=== PATIENT | male | born 1955 | race Caucasian/White ===

== ENCOUNTER 2017-11-25 10:06 | Emergency (ER) | payer OTHER ==
--- NOTE | 2017-11-25 10:51 | ERPHSYRPT ---
- History of Present Illness Time Seen by Provider: 11/25/17 10:38 Source: patient Exam Limitations: no limitations Patient Subjective Stated Complaint: Pt states "I have been down this road before. I am having chest pain. It has been going on for 2 days. It got really bad and started to go down my right arm yesterday." Triage Nursing Assessment: Pt alert and oriented X 3, skin pwd. PT ambulates with cane, able to speak in clear full sentences. PT slightly tachypneic. Allergies/Adverse Reactions: codeine Allergy (Severe, Verified 11/25/17 10:18) stop breathing hydrocodone Allergy (Severe, Verified 11/25/17 10:18) stop breathing morphine Allergy (Severe, Verified 11/25/17 10:18) stop breathing Home Medications: Albuterol Sulfate [Proair Hfa] 8.5 gm IH DAILY 11/25/17 [History] Amitriptyline HCl 75 mg PO BID 11/25/17 [History] Amlodipine Besylate 10 mg [Norvasc 10 MG] 10 mg PO DAILY 11/25/17 [History] Budesonide/Formoterol Fumarate [Symbicort 80-4.5 Mcg Inhaler] 10.2 gm IH BID [History] Carbamazepine 200 mg [Tegretol 200 MG] 200 mg PO DAILY 11/25/17 [History] Fenofibrate 48 mg PO DAILY 11/25/17 [History] Gabapentin [Neurontin] 300 mg PO DAILY 11/25/17 [History] Lisinopril/Hydrochlorothiazide [Lisinopril-Hctz 20-25 mg Tab] 1 each PO DAILY [History] Metoprolol Succinate 100 mg [Toprol Xl 100 MG] 100 mg PO DAILY 11/25/17 [ History] Mirtazapine [Remeron] 7.5 mg PO HS 11/25/17 [History] Mometasone Furoate [Nasonex] 17 gm NS DAILY 11/25/17 [History] Phenytoin Sod Extended 100 mg* [Dilantin 100 MG] 200 mg PO TID 11/25/17 [ History] Sertraline HCl [Zoloft] 100 mg PO DAILY 11/25/17 [History] Terazosin HCl 2 mg PO HS 11/25/17 [History] Hx Tetanus, Diphtheria Vaccination/Date Given: Yes Hx Influenza Vaccination/Date Given: No Hx Pneumococcal Vaccination/Date Given: No Immunizations Up to Date: Yes - Past Medical History Pertinent Past Medical History: Yes Neurological History: Seizures, Stroke ENT History: Other Cardiac History: Coronary Artery Disease, High Cholesterol, Myocardial Infarction ([place]) Respiratory History: COPD Endocrine Medical History: No Pertinent History Musculoskeletal History: Arthritis GI Medical History: No Pertinent History History: Other Psycho-Social History: Depression Male Reproductive Disorders: No Pertinent History 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 - Past Surgical History Past Surgical History: Yes Neuro Surgical History: No Pertinent History Cardiac: Cardiac Catheterization, Cardiac Stent Respiratory: No Pertinent History Gastrointestinal: No Pertinent History Genitourinary: Kidney Surgery, Other Musculoskeletal: No Pertinent History Male Surgical History: No Pertinent History - Social History Smoking Status: Former smoker Exposure to second hand smoke: No Drug Use: none Patient Lives Alone: No - Nursing Vital Signs Nursing Vital Signs: Initial Vital Signs Temperature 98.7 F 11/25/17 10:07 Pulse Rate 70 11/25/17 10:07 Respiratory Rate 18 11/25/17 10:07 Blood Pressure 154/106 11/25/17 10:07 O2 Sat by Pulse Oximetry 98 11/25/17 10:07 Pain Scale Pain Intensity 7 - Physical Exam SpO2: 98 Oxygen Delivery: Room Air
--- NOTE | 2017-11-25 10:56 | ERPHSYRPT ---
- History of Present Illness Time Seen by Provider: 11/25/17 10:38 Source: patient, family Exam Limitations: no limitations Patient Subjective Stated Complaint: Pt states "I have been down this road before. I am having chest pain. It has been going on for 2 days. It got really bad and started to go down my right arm yesterday." Triage Nursing Assessment: Pt alert and oriented X 3, skin pwd. PT ambulates with cane, able to speak in clear full sentences. PT slightly tachypneic. Physician History: The patient is a 62-year-old male with his complaining that his blood pressure was elevated "baljit high" last night and this morning. He takes many different blood pressure medicines and did not take any this morning because they wanted to be seen immediately. He hurt the right side of his upper back 2 days ago while playing with his granddaughter. His upper back is still hurting today. He believes it is a pulled muscle. He has chronic shortness of breath from COPD. He denies chest pain. He denies headache. His past medical history is significant for [place], cardiac stent, COPD, hypertension, high cholesterol, and BPH. Timing/Duration: yesterday, constant, gradual onset Severity: moderate Modifying Factors: Improves With: nothing Associated Symptoms: denies symptoms Allergies/Adverse Reactions: codeine Allergy (Severe, Verified 11/25/17 10:18) stop breathing hydrocodone Allergy (Severe, Verified 11/25/17 10:18) stop breathing morphine Allergy (Severe, Verified 11/25/17 10:18) stop breathing Home Medications: Albuterol Sulfate [Proair Hfa] 8.5 gm IH DAILY 11/25/17 [History] Amitriptyline HCl 75 mg PO BID 11/25/17 [History] Amlodipine Besylate 10 mg [Norvasc 10 MG] 10 mg PO DAILY 11/25/17 [History] Budesonide/Formoterol Fumarate [Symbicort 80-4.5 Mcg Inhaler] 10.2 gm IH BID [History] Carbamazepine 200 mg [Tegretol 200 MG] 200 mg PO DAILY 11/25/17 [History] Fenofibrate 48 mg PO DAILY 11/25/17 [History] Gabapentin [Neurontin] 300 mg PO DAILY 11/25/17 [History] Lisinopril/Hydrochlorothiazide [Lisinopril-Hctz 20-25 mg Tab] 1 each PO DAILY [History] Metoprolol Succinate 100 mg [Toprol Xl 100 MG] 100 mg PO DAILY 11/25/17 [ History] Mirtazapine [Remeron] 7.5 mg PO HS 11/25/17 [History] Mometasone Furoate [Nasonex] 17 gm NS DAILY 11/25/17 [History] Phenytoin Sod Extended 100 mg* [Dilantin 100 MG] 200 mg PO TID 11/25/17 [ History] Sertraline HCl [Zoloft] 100 mg PO DAILY 11/25/17 [History] Terazosin HCl 2 mg PO HS 11/25/17 [History] Hx Tetanus, Diphtheria Vaccination/Date Given: Yes Hx Influenza Vaccination/Date Given: No Hx Pneumococcal Vaccination/Date Given: No Immunizations Up to Date: Yes - Review of Systems Constitutional: No Fever, No Chills Eyes: No Symptoms Ears, Nose, & Throat: No Symptoms Respiratory: Dyspnea (chronic) Cardiac: No Chest Pain, No Edema, No Syncope Abdominal/Gastrointestinal: No Abdominal Pain, No Nausea, No Vomiting, No Diarrhea Genitourinary Symptoms: No Dysuria Musculoskeletal: Back Pain Skin: No Rash Neurological: No Dizziness, No Focal Weakness, No Sensory Changes Psychological: No Symptoms Endocrine: No Symptoms Hematologic/Lymphatic: No Symptoms Immunological/Allergic: No Symptoms All Other Systems: Reviewed and Negative - Past Medical History Pertinent Past Medical History: Yes Neurological History: Seizures, Stroke ENT History: Other Cardiac History: Coronary Artery Disease, High Cholesterol, Myocardial Infarction ([place]) Respiratory History: COPD Endocrine Medical History: No Pertinent History Musculoskeletal History: Arthritis GI Medical History: No Pertinent History History: Other Psycho-Social History: Depression Male Reproductive Disorders: No Pertinent History 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 - Past Surgical History Past Surgical History: Yes Neuro Surgical History: No Pertinent History Cardiac: Cardiac Catheterization, Cardiac Stent Respiratory: No Pertinent History Gastrointestinal: No Pertinent History Genitourinary: Kidney Surgery, Other Musculoskeletal: No Pertinent History Male Surgical History: No Pertinent History - Social History Smoking Status: Former smoker Exposure to second hand smoke: No Drug Use: none Patient Lives Alone: No - Nursing Vital Signs Nursing Vital Signs: Initial Vital Signs Temperature 98.7 F 11/25/17 10:07 Pulse Rate 70 11/25/17 10:07 Respiratory Rate 18 11/25/17 10:07 Blood Pressure 154/106 11/25/17 10:07 O2 Sat by Pulse Oximetry 98 11/25/17 10:07 Pain Scale Pain Intensity 4 - Physical Exam General Appearance: no apparent distress, alert Eye Exam: PERRL/EOMI, eyes nml inspection Ears, Nose, Throat Exam: normal ENT inspection, TMs normal, pharynx normal, moist mucous membranes Neck Exam: normal inspection, non-tender, supple, full range of motion Respiratory Exam: normal breath sounds, lungs clear, No respiratory distress Cardiovascular Exam: regular rate/rhythm, normal heart sounds, normal peripheral pulses Gastrointestinal/Abdomen Exam: soft, normal bowel sounds, No tenderness, No mass Rectal Exam: not done Back Exam: muscle spasm (right trapezius) Extremity Exam: normal inspection, normal range of motion, pelvis stable Neurologic Exam: alert, oriented x 3, cooperative, normal mood/affect, nml cerebellar function, nml station & gait, sensation nml, No motor deficits Skin Exam: normal color, warm, dry, No rash Lymphatic Exam: No adenopathy SpO2 Interpretation: normal SpO2: 98 Oxygen Delivery: Room Air - Course EKG Interpreted by Me: RATE, Sinus Rhythm, NORMAL AXIS, NORMAL INTERVALS, NORMAL QRS, NORMAL ST-T - Radiology Exams Chest X-ray Interpretation: Interpreted by me, Negative Ordered Tests: Active Orders 24 hr Category Date Time Status Clean Catch Urine Specimen STAT Care 11/25/17 10:57 Active EKG-ER Only STAT Care 11/25/17 10:57 Active IV Insertion STAT Care 11/25/17 10:57 Active CHEST 2 VIEWS (PA AND LAT) Stat Exams 11/25/17 10:57 Ordered CBC W DIFF Stat Lab 11/25/17 10:10 Completed CMP Stat Lab 11/25/17 10:10 Completed Lactic Acid Stat Lab 11/25/17 10:54 Completed Lactic Acid Stat Lab 11/25/17 10:57 Ordered TROPONIN Q3H Lab 11/25/17 10:10 Completed TROPONIN Q3H Lab 11/25/17 14:00 Ordered TROPONIN Q3H Lab 11/25/17 17:00 Ordered TROPONIN Q3H Lab 11/25/17 20:00 Ordered TROPONIN Q3H Lab 11/25/17 23:00 Ordered UA W/RFX UR CULTURE Stat Lab 11/25/17 10:10 Completed Medication Summary Generic Name Dose Route Start Last Admin Trade Name Carla PRN Reason Stop Dose Admin Lisinopril 20 mg/ 0 mg 11/26/17 10:00 11/25/17 11:16 Hydrochlorothiazide 25 mg PO 12/26/17 09:59 20 mg DAILY JAY Administration Discontinued Medications Generic Name Dose Route Start Last Admin Trade Name Carla PRN Reason Stop Dose Admin Amlodipine Besylate 10 mg 11/25/17 11:03 11/25/17 11:17 Norvasc 5 Mg PO 11/25/17 11:04 10 mg STAT ONE Administration Amlodipine Besylate Confirm 11/25/17 11:06 Norvasc 5 Mg Administered 11/25/17 11:07 Dose 10 mg .ROUTE .Musement ONE Lab/Rad Data: Laboratory Result Diagrams 11/25/17 10:10 11/25/17 10:10 Laboratory Results 11/25/17 11/25/17 11/25/17 Range/Units 10:54 10:10 10:10 WBC (4.0-10.5) K/mm3 RBC (4.1-5.6) M/mm3 Hgb (12.5-18.0) gm/dl Hct (42-50) % MCV (78-100) fl MCH (26-32) pg MCHC (32-36) g/dl RDW (11.5-14.0) % Plt Count (150-450) K/mm3 MPV (6-9.5) fl Gran % (36.0-66.0) % Eos # (Auto) (0-0.5) Absolute Lymphs (auto) (1.0-4.6) Absolute Monos (auto) (0.0-1.3) Lymphocytes % (24.0-44.0) % Monocytes % (0.0-12.0) % Eosinophils % (0.00-5.0) % Basophils % (0.0-0.4) % Absolute Granulocytes (1.4-6.9) Basophils # (0-0.4) Sodium (137-145) mmol/L Potassium (3.5-5.1) mmol/L Chloride (98-107) mmol/L Carbon Dioxide (22-30) mmol/L Anion Gap (5-15) MEQ/L BUN (9-20) mg/dL Creatinine (0.66-1.25) mg/dL Estimated GFR ML/MIN Glucose (74-106) mg/dL Lactic Acid 1.7 (0.4-2.0) Calcium (8.4-10.2) mg/dL Total Bilirubin (0.2-1.3) mg/dL AST (17-59) U/L ALT (0-50) U/L Alkaline Phosphatase (38-126) U/L Troponin I < 0.012 (0.000-0.034) ng/mL Serum Total Protein (6.3-8.2) g/dL Albumin (3.5-5.0) g/dL Ur Collection Type VOID Urine Color YELLOW (YELLOW) Urine Appearance CLEAR (CLEAR) Urine pH 7.0 (5-6) Ur Specific [place] 1.005 (1.005-1.025) Urine Protein NEGATIVE (Negative) Urine Ketones NEGATIVE (NEGATIVE) Urine Blood NEGATIVE (0-5) Vic[place]/ul Urine Nitrite NEGATIVE (NEGATIVE) Urine Bilirubin NEGATIVE (NEGATIVE) Urine Urobilinogen NORMAL (0-1) mg/dL Ur Leukocyte Esterase NEGATIVE (NEGATIVE) Urine Culture Reflexed NO (NO) Urine Glucose NEGATIVE (NEGATIVE) mg/dL Specimen Received 11/25/17 1100 11/25/17 11/25/17 Range/Units 10:10 10:10 WBC 6.9 (4.0-10.5) K/mm3 RBC 4.54 (4.1-5.6) M/mm3 Hgb 10.5 L (12.5-18.0) gm/dl Hct 33.2 L (42-50) % MCV 73.1 L (78-100) fl MCH 23.1 L (26-32) pg MCHC 31.6 L (32-36) g/dl RDW 17.1 H (11.5-14.0) % Plt Count 287 (150-450) K/mm3 MPV 10.8 H (6-9.5) fl Gran % 53.0 (36.0-66.0) % Eos # (Auto) 0 (0-0.5) Absolute Lymphs (auto) 2.81 (1.0-4.6) Absolute Monos (auto) 0.42 (0.0-1.3) Lymphocytes % 40.9 (24.0-44.0) % Monocytes % 6.1 (0.0-12.0) % Eosinophils % 0.0 (0.00-5.0) % Basophils % 0.0 (0.0-0.4) % Absolute Granulocytes 3.64 (1.4-6.9) Basophils # 0 (0-0.4) Sodium 140 (137-145) mmol/L Potassium 4.0 (3.5-5.1) mmol/L Chloride 108 H (98-107) mmol/L Carbon Dioxide 22 (22-30) mmol/L Anion Gap 14.4 (5-15) MEQ/L BUN 17 (9-20) mg/dL Creatinine 0.85 (0.66-1.25) mg/dL Estimated GFR > 60.0 ML/MIN Glucose 149 H (74-106) mg/dL Lactic Acid (0.4-2.0) Calcium 9.3 (8.4-10.2) mg/dL Total Bilirubin 0.40 (0.2-1.3) mg/dL AST 35 (17-59) U/L ALT 23 (0-50) U/L Alkaline Phosphatase 101 (38-126) U/L Troponin I (0.000-0.034) ng/mL Serum Total Protein 7.6 (6.3-8.2) g/dL Albumin 4.6 (3.5-5.0) g/dL Ur Collection Type Urine Color (YELLOW) Urine Appearance (CLEAR) Urine pH (5-6) Ur Specific [place] (1.005-1.025) Urine Protein (Negative) Urine Ketones (NEGATIVE) Urine Blood (0-5) Vic[place]/ul Urine Nitrite (NEGATIVE) Urine Bilirubin (NEGATIVE) Urine Urobilinogen (0-1) mg/dL Ur Leukocyte Esterase (NEGATIVE) Urine Culture Reflexed (NO) Urine Glucose (NEGATIVE) mg/dL Specimen Received - Progress Progress: unchanged Counseled pt/family regarding: lab results, diagnosis, need for follow-up, rad results - Departure Time of Disposition: 12:02 Departure Disposition: Home Clinical Impression: HTN (hypertension), Anemia, Blood glucose elevated, Right shoulder strain Condition: Stable Critical Care Time: No Referrals: DOCTOR,NO FAMILY [Primary Care Provider] - Additional Instructions: You have a right shoulder strain, mild anemia, elevated blood glucose level, and hypertension. You were given amlodipine 10 mg, lisinopril 20 mg, and HCTZ 25 mg in the ER. Avoid added salt to your foods and avoid processed food. Follow-up with Dr. Ibarra in [place] on Sunday.
[2017-11-25] MEDS ORDERED: NORVASC 5 MG PO ONE (11:03)
[2017-11-25] MEDS ORDERED: NORVASC 5 MG ONE (11:06)
[2017-11-25 11:07] LABS: Appearance CLEAR (CLEAR); Basophil (Absolute #) 0 (0-0.4); Bilirubin NEGATIVE (NEGATIVE); Blood NEGATIVE Ery/ul (0-5); Eosinophil (Absolute #) 0 (0-0.5); Glucose NEGATIVE (NEGATIVE); Granulocyte Absolute (ANC) 3.64 (1.4-6.9); Hematocrit 33.2 % (42-50); Hemoglobin 10.5 gm/dl (12.5-18.0); Ketones NEGATIVE (NEGATIVE); Leukocyte Esterase NEGATIVE (NEGATIVE); Lymphocyte (Absolute #) 2.81 (1.0-4.6); Lymphocytes % 40.9 % (24.0-44.0); Mean Cell Volume 73.1 fl (78-100); Mean Corpuscular Hemoglobin 23.1 pg (26-32); Mean Corpuscular Hgb Concent. 31.6 g/dl (32-36); Mean Platelet Volume 10.8 fl (6-9.5); Monocyte (Absolute #) 0.42 (0.0-1.3); Monocytes % 6.1 % (0.0-12.0); Nitrite NEGATIVE (NEGATIVE); Platelet Count 287 K/mm3 (150-450); Protein,Urine Dip NEGATIVE (Negative); Red Blood Count 4.54 M/mm3 (4.1-5.6); Red Cell Distribution Width 17.1 % (11.5-14.0); Specific Gravity 1.005 (1.005-1.025); Urobilinogen NORMAL mg/dL (0-1); White Blood Count 6.9 K/mm3 (4.0-10.5)
[2017-11-25 11:33] LABS: ALBUMIN 4.6 g/dL (3.5-5.0); ALKALINE PHOSPHATASE 101 U/L (38-126); ANION GAP 14.4 MEQ/L (5-15); BLOOD UREA NITROGEN 17 mg/dL (9-20); CHLORIDE 108 mmol/L (98-107); Calcium 9.3 mg/dL (8.4-10.2); Carbon Dioxide 22 mmol/L (22-30); Creatinine 1 0.85 mg/dL (0.66-1.25); Glucose 149 mg/dL (74-106); SGOT/AST 35 U/L (17-59); SGPT/ALT 23 U/L (0-50); SODIUM 140 mmol/L (137-145); Total Protein 7.6 g/dL (6.3-8.2)
[2017-11-25 12:21] VITALS: BP 162/110; PULSE 90; O2SAT 97
--- NOTE | 2017-11-25 20:28 | XRAY ---
Indication: Right chest discomfort. History COPD. Comparison: None PA/lateral chest hyperinflated and clear with a few incidental calcified granulomas. Heart is not enlarged. Bony thorax intact with mild degenerative changes.
[2017-11-26] MEDS ORDERED: Zestril 20 MG*** 20 MG, hydroDIURIL 25 MG*** 25 MG PO SCH ×2 (10:00)
== END 2017-11-25 12:21 | disposition home or self-care (01) ==
LOC: ED 10:06
DX: I10 Essential (primary) hypertension (principal); D64.9 Anemia, unspecified; R73.02 Impaired glucose tolerance (oral); S46.911A Strain of unspecified muscle, fascia and tendon at shoulder and upper arm level, right arm, initial encounter; Z79.899 Other long term (current) drug therapy; R06.00 Dyspnea, unspecified; M54.9 Dorsalgia, unspecified
CPT/HCPCS: 36000; 36415; 71046; 80053; 81002; 83605; 84484; 85025; 93005; 99284; A9270-GY

== ENCOUNTER 2019-03-14 09:24 | Emergency (ER) | payer OTHER ==
--- NOTE | 2019-03-14 09:35 | ERPHSYRPT ---
- History of Present Illness Time Seen by Provider: 03/14/19 09:35 Historian: patient, family Exam Limitations: no limitations Physician History: 63 y/o obese white male with htn and seizure disorder on dilantin presents with h/o multiple episodes of vomiting since yesterday. pt fell onto left knee. vomiting soon after this fall. pt denies abd injury, denies cp, denies soa and denies diarrhea. pt can take iv demerol for pain. pt does feel as though he has sinus congestion. Timing/Duration: yesterday Quality: aching Abdominal Pain Onset Location: generalized abdomen Pain Radiation: no radiation Severity of Pain-Max: moderate Severity of Pain-Current: moderate Modifying Factors: Improves With: vomiting Associated Symptoms: loss of appetite, nausea, vomiting Previous symptoms: no prior history Allergies/Adverse Reactions: codeine Allergy (Severe, Verified 03/14/19 09:45) stop breathing hydrocodone Allergy (Severe, Verified 03/14/19 09:45) stop breathing morphine Allergy (Severe, Verified 03/14/19 09:45) stop breathing Penicillins Allergy (Verified 03/14/19 09:46) Home Medications: Amitriptyline HCl 75 mg PO HS 11/25/17 [History] Amlodipine Besylate 10 mg [Norvasc 10 MG] 10 mg PO DAILY 11/25/17 [History] Carbamazepine 200 mg [Tegretol 200 MG] 200 mg PO BID 11/25/17 [History] Lisinopril/Hydrochlorothiazide [Lisinopril-Hctz 20-25 mg Tab] 2 each PO DAILY [History] Metoprolol Succinate 100 mg [Toprol Xl 100 MG] 100 mg PO DAILY 11/25/17 [ History] Mometasone Furoate [Nasonex] 17 gm NS DAILY 11/25/17 [History] Phenytoin Sod Extended 100 mg* [Dilantin 100 MG] 200 mg PO TID 11/25/17 [ History] Terazosin HCl 2 mg PO HS 11/25/17 [History] Atorvastatin Calcium [Lipitor] 20 mg PO DAILY 03/14/19 [History] Fenofibrate Nanocrystallized [Fenofibrate] 1 tab PO DAILY 03/14/19 [History] Gabapentin 300 mg PO TID 03/14/19 [History] Loratadine 10 mg [Claritin 10 mg] 10 mg PO DAILY 03/14/19 [History] Omeprazole 20 mg PO DAILY 03/14/19 [History] Phenylephrine HCl [Sudogest PE] 20 mg PO BID 03/14/19 [History] Hx Tetanus, Diphtheria Vaccination/Date Given: Yes Hx Influenza Vaccination/Date Given: No Hx Pneumococcal Vaccination/Date Given: No - Review of Systems Constitutional: No Symptoms Eyes: No Symptoms Ears, Nose, & Throat: No Symptoms Respiratory: No Symptoms Cardiac: No Symptoms Abdominal/Gastrointestinal: Abdominal Pain, Nausea, Vomiting Genitourinary Symptoms: No Symptoms Musculoskeletal: Injury, Joint Pain (left knee) Skin: No Symptoms Neurological: No Symptoms Psychological: No Symptoms Endocrine: No Symptoms Hematologic/Lymphatic: No Symptoms Immunological/Allergic: No Symptoms All Other Systems: Reviewed and Negative - Past Medical History Pertinent Past Medical History: Yes Neurological History: Seizures, Stroke ENT History: Other Cardiac History: Coronary Artery Disease, High Cholesterol, Myocardial Infarction ([place]) Respiratory History: COPD Endocrine Medical History: No Pertinent History Musculoskeletal History: Arthritis GI Medical History: No Pertinent History History: Other Psycho-Social History: Depression Male Reproductive Disorders: No Pertinent History 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 - Past Surgical History Past Surgical History: Yes Neuro Surgical History: No Pertinent History Cardiac: Cardiac Catheterization, Cardiac Stent Respiratory: No Pertinent History Gastrointestinal: No Pertinent History Genitourinary: Kidney Surgery, Other Musculoskeletal: No Pertinent History Male Surgical History: No Pertinent History - Social History Smoking Status: Former smoker Exposure to second hand smoke: No Drug Use: none Patient Lives Alone: No - Nursing Vital Signs Nursing Vital Signs: Initial Vital Signs Temperature 98.8 F 03/14/19 09:30 Pulse Rate 107 H 03/14/19 09:30 Blood Pressure 159/106 03/14/19 09:30 O2 Sat by Pulse Oximetry 96 03/14/19 09:30 Pain Scale Pain Intensity 8 - Physical Exam General Appearance: mild distress, alert, anxiety, obese Eye Exam: PERRL/EOMI, eyes nml inspection Ears, Nose, Throat Exam: normal ENT inspection, moist mucous membranes Neck Exam: normal inspection, non-tender, supple, full range of motion Respiratory Exam: normal breath sounds, lungs clear, airway intact, No chest tenderness, No respiratory distress Cardiovascular Exam: regular rate/rhythm, normal heart sounds, normal peripheral pulses Gastrointestinal/Abdomen Exam: soft, tenderness, distention, No guarding, No rebound Rectal Exam: not done Back Exam: normal inspection, normal range of motion, No CVA tenderness, No vertebral tenderness Extremity Exam: normal inspection, normal range of motion, pelvis stable, tenderness (left ant knee) Neurologic Exam: alert, oriented x 3, cooperative, recycle coordinator II-XII nml as tested Skin Exam: normal color, warm, dry Lymphatic Exam: No adenopathy SpO2 Interpretation: normal O2 Delivery: Room Air - Course Nursing assessment & vital signs reviewed: Yes Ordered Tests: Active Orders 24 hr Category Date Time Status IV Insertion STAT Care 03/14/19 09:44 Active ABDOMEN AND PELVIS W/0 CONTRAS [CT] Stat Exams 03/14/19 09:44 Completed KNEE (3 VIEWS) Stat Exams 03/14/19 09:46 Completed AMYLASE Stat Lab 03/14/19 09:35 Completed CBC W DIFF Stat Lab 03/14/19 09:35 Completed CMP Stat Lab 03/14/19 09:35 Completed LIPASE Stat Lab 03/14/19 09:35 Completed Lactic Acid Stat Lab 03/14/19 09:44 Results UA W/RFX UR CULTURE Stat Lab 03/14/19 09:44 Uncollected Medication Summary Generic Name Dose Route Start Last Admin Trade Name Freq PRN Reason Stop Dose Admin Sodium Chloride 1,000 mls @ 999 mls/hr 03/14/19 11:06 03/14/19 11:12 Sodium Chloride 0.9% 1000 Ml IV 03/14/19 12:06 999 mls/hr .Q1H1M STA Administration Discontinued Medications Generic Name Dose Route Start Last Admin Trade Name Freq PRN Reason Stop Dose Admin Famotidine 20 mg 03/14/19 09:44 03/14/19 09:59 Pepcid 20 Mg Vial IV 03/14/19 09:45 20 mg STAT ONE Administration Famotidine Confirm 03/14/19 09:57 Pepcid 20 Mg Vial Administered 03/14/19 09:58 Dose 20 mg IV .STK-MED ONE Sodium Chloride 1,000 mls @ 999 mls/hr 03/14/19 09:44 03/14/19 11:07 Sodium Chloride 0.9% 1000 Ml IV 03/14/19 10:44 Infused .Q1H1M STA Infusion Sodium Chloride Confirm 03/14/19 09:57 Sodium Chloride 0.9% 1000 Ml Administered 03/14/19 09:58 Dose 1,000 mls @ ud .ROUTE .STK-MED ONE Sodium Chloride Confirm 03/14/19 11:09 Sodium Chloride 0.9% 1000 Ml Administered 03/14/19 11:10 Dose 1,000 mls @ ud .ROUTE .STK-MED ONE Meperidine HCl 25 mg 03/14/19 09:45 03/14/19 09:59 Demerol 25mg Syringe IV 03/14/19 09:46 25 mg STAT ONE Administration Meperidine HCl Confirm 03/14/19 09:57 Demerol 25mg Syringe Administered 03/14/19 09:58 Dose 25 mg .ROUTE .STK-[facility] ONE Ondansetron HCl 4 mg 03/14/19 09:44 03/14/19 09:59 Zofran 4 Mg/2 Ml Vial IV 03/14/19 09:45 4 mg STAT ONE Administration Ondansetron HCl Confirm 03/14/19 09:56 Zofran 4 Mg/2 Ml Vial Administered 03/14/19 09:57 Dose 4 mg .ROUTE .[facility] ONE Lab/Rad Data: Laboratory Result Diagrams 03/14/19 09:35 03/14/19 09:35 Laboratory Results 03/14/19 03/14/19 03/14/19 Range/Units 10:00 09:44 09:35 WBC (4.0-10.5) K/mm3 RBC (4.1-5.6) M/mm3 Hgb (12.5-18.0) gm/dl Hct (42-50) % MCV (78-100) fl MCH (26-32) pg MCHC (32-36) g/dl RDW (11.5-14.0) % Plt Count (150-450) K/mm3 MPV (6-9.5) fl Gran % (36.0-66.0) % Eos # (Auto) (0-0.5) Absolute Lymphs (auto) (1.0-4.6) Absolute Monos (auto) (0.0-1.3) Lymphocytes % (24.0-44.0) % Monocytes % (0.0-12.0) % Eosinophils % (0.00-5.0) % Basophils % (0.0-0.4) % Absolute Granulocytes (1.4-6.9) Basophils # (0-0.4) Sodium (137-145) mmol/L Potassium (3.5-5.1) mmol/L Chloride (98-107) mmol/L Carbon Dioxide (22-30) mmol/L Anion Gap (5-15) MEQ/L BUN (9-20) mg/dL Creatinine (0.66-1.25) mg/dL Estimated GFR ML/MIN Glucose (74-106) mg/dL Lactic Acid 2.1 H (0.4-2.0) Calcium (8.4-10.2) mg/dL Total Bilirubin (0.2-1.3) mg/dL AST (17-59) U/L ALT (0-50) U/L Alkaline Phosphatase (38-126) U/L Serum Total Protein (6.3-8.2) g/dL Albumin (3.5-5.0) g/dL Amylase (30-110) U/L Lipase (23-300) U/L Phenytoin 23.0 H* (10-20) ug/mL Influenza Type A Ag NEGATIVE (NEGATIVE) Influenza Type B Ag NEGATIVE (NEGATIVE) RSV (PCR) NEGATIVE (Negative) Slides for Path Review 03/14/19 03/14/19 Range/Units 09:35 09:35 WBC 6.8 (4.0-10.5) K/mm3 RBC 5.22 (4.1-5.6) M/mm3 Hgb 11.0 L (12.5-18.0) gm/dl Hct 35.6 L (42-50) % MCV 68.2 L (78-100) fl MCH 21.0 L (26-32) pg MCHC 30.9 L (32-36) g/dl RDW 21.2 H (11.5-14.0) % Plt Count 410 (150-450) K/mm3 MPV 9.6 H (6-9.5) fl Gran % 51.5 (36.0-66.0) % Eos # (Auto) 0 (0-0.5) Absolute Lymphs (auto) 2.53 (1.0-4.6) Absolute Monos (auto) 0.78 (0.0-1.3) Lymphocytes % 37.0 (24.0-44.0) % Monocytes % 11.4 (0.0-12.0) % Eosinophils % 0.0 (0.00-5.0) % Basophils % 0.1 (0.0-0.4) % Absolute Granulocytes 3.51 (1.4-6.9) Basophils # 0.01 (0-0.4) Sodium 140 (137-145) mmol/L Potassium 4.1 (3.5-5.1) mmol/L Chloride 104 (98-107) mmol/L Carbon Dioxide 21 L (22-30) mmol/L Anion Gap 18.1 H (5-15) MEQ/L BUN 18 (9-20) mg/dL Creatinine 1.15 (0.66-1.25) mg/dL Estimated GFR > 60.0 ML/MIN Glucose 148 H (74-106) mg/dL Lactic Acid (0.4-2.0) Calcium 9.8 (8.4-10.2) mg/dL Total Bilirubin 0.50 (0.2-1.3) mg/dL AST 38 (17-59) U/L ALT 21 (0-50) U/L Alkaline Phosphatase 89 (38-126) U/L Serum Total Protein 8.7 H (6.3-8.2) g/dL Albumin 4.8 (3.5-5.0) g/dL Amylase 125 H (30-110) U/L Lipase 196 (23-300) U/L Phenytoin (10-20) ug/mL Influenza Type A Ag (NEGATIVE) Influenza Type B Ag (NEGATIVE) RSV (PCR) (Negative) Slides for Path Review - Progress Progress: improved Progress Note: 03/14/19 11:05 xray left knee-mild nonspecific effusion. ct abd/pelvis-no acute process Counseled pt/family regarding: lab results, diagnosis, need for follow-up, rad results - Departure Departure Disposition: Home Clinical Impression: Vomiting, Dilantin toxicity Condition: Stable Critical Care Time: No Referrals: ULISES GEORGES MD [Primary Care Provider] - Additional Instructions: drink plenty of fluids. hold dilantin until mid day tomorrow 03/15/19, then resume. follow up with your primary prescriber on Sunday03/17/19 for further instructions. Prescriptions: Ondansetron HCl [Zofran] 4 mg PO TID PRN #10 tablet PRN Reason: Nausea/Vomiting
[2019-03-14] MEDS ORDERED: Sodium Chloride 0.9% 1000 ML 1,000 ML IV STA ×2 (09:44→11:06)
[2019-03-14] MEDS ORDERED: Zofran 4 MG/2 ML VIAL IV ONE (09:44)
[2019-03-14] MEDS ORDERED: Pepcid 20 MG VIAL IV ONE ×2 (09:44→09:57)
[2019-03-14] MEDS ORDERED: DEMEROL 25MG SYRINGE IV ONE (09:45)
[2019-03-14] MEDS ORDERED: Zofran 4 MG/2 ML VIAL ONE (09:56)
[2019-03-14] MEDS ORDERED: DEMEROL 25MG SYRINGE ONE (09:57)
[2019-03-14] MEDS ORDERED: Sodium Chloride 0.9% 1000 ML 1,000 ML ONE ×2 (09:57→11:09)
[2019-03-14 10:05] LABS: Lactic Acid 2.1 (0.4-2.0)
[2019-03-14 10:05] LABS: Absolute Neutrophil Ct (ANC) 3.51 (1.4-6.9); BASOPHIL % 0.1 % (0.0-0.4); Basophil (Absolute #) 0.01 (0-0.4); Eosinophil (Absolute #) 0 (0-0.5); Hematocrit 35.6 % (42-50); Lymphocyte (Absolute #) 2.53 (1.0-4.6); Mean Cell Volume 68.2 fl (78-100); Mean Corpuscular Hgb Concent. 30.9 g/dl (32-36); Mean Platelet Volume 9.6 fl (6-9.5); Monocyte (Absolute #) 0.78 (0.0-1.3); Monocytes % 11.4 % (0.0-12.0); Neutrophil % 51.5 % (36.0-66.0); Platelet Count 410 K/mm3 (150-450); Red Blood Count 5.22 M/mm3 (4.1-5.6); Red Cell Distribution Width 21.2 % (11.5-14.0); White Blood Count 6.8 K/mm3 (4.0-10.5)
[2019-03-14 10:16] LABS: ALBUMIN 4.8 g/dL (3.5-5.0); ALKALINE PHOSPHATASE 89 U/L (38-126); AMYLASE 125 U/L (30-110); ANION GAP 18.1 MEQ/L (5-15); BLOOD UREA NITROGEN 18 mg/dL (9-20); CHLORIDE 104 mmol/L (98-107); Calcium 9.8 mg/dL (8.4-10.2); Carbon Dioxide 21 mmol/L (22-30); Creatinine 1 1.15 mg/dL (0.66-1.25); Glucose 148 mg/dL (74-106); LIPASE 196 U/L (23-300); Potassium 4.1 mmol/L (3.5-5.1); SGOT/AST 38 U/L (17-59); SGPT/ALT 21 U/L (0-50); SODIUM 140 mmol/L (137-145); Total Protein 8.7 g/dL (6.3-8.2)
--- NOTE | 2019-03-14 10:41 | XRAY ---
Indication: Abdomen distention. Vomiting and diarrhea. Multiple contiguous axial images obtained through the abdomen and pelvis without contrast as ordered. Comparison: None Lung bases demonstrates mild bilateral dependent atelectasis and minimal bibasilar fibrosis/scarring. No infiltrate or effusion. Heart is not enlarged. Noncontrasted stomach and bowel loops appear nonobstructed. Appendix not seen. There has been left total nephrectomy. No free fluid/air. Remaining liver, gallbladder, pancreas, spleen, adrenal glands, right kidney, right ureter, bladder, and aorta appear unremarkable for noncontrast exam. Osseous structures intact with mild/moderate degenerative changes throughout the thoracolumbar spine. Impression: 1. Left total nephrectomy. 2. Remaining CT abdomen/pelvis without contrast exam is negative. CTDI 21.97
[2019-03-14 10:56] LABS: INFLUENZA A NEGATIVE (NEGATIVE); INFLUENZA B NEGATIVE (NEGATIVE); RESPIRATORY SYNCTIAL VIRUS NEGATIVE (Negative)
--- NOTE | 2019-03-14 10:58 | XRAY ---
Indication: Chronic pain. Comparison: None 3 views of the right knee demonstrates mild/moderate tricompartmental degenerative changes greatest patellofemoral compartment with small nonspecific effusion. No other bony, articular, or soft tissue abnormalities.
[2019-03-14 12:14] VITALS: BP 136/98; PULSE 98; O2SAT 98
[2019-03-14 12:23] LABS: Appearance CLEAR (CLEAR); Bilirubin NEGATIVE (NEGATIVE); Blood NEGATIVE Ery/ul (0-5); Epithelial Cells RARE /HPF (FEW); Glucose NEGATIVE (NEGATIVE); Ketones NEGATIVE (NEGATIVE); Leukocyte Esterase NEGATIVE (NEGATIVE); Mucus SLIGHT /HPF (NEGATIVE); Nitrite NEGATIVE (NEGATIVE); Protein,Urine Dip NEGATIVE (Negative); Specific Gravity 1.027 (1.005-1.025); Urobilinogen NEGATIVE mg/dL (0-1)
[2019-03-14] MEDS ORDERED: ZOFRAN ODT 4 MG ONE (12:30)
[2019-03-14] MEDS: ZOFRAN ODT 4 MG PO PRN ×2 (12:34→12:38)
== END 2019-03-14 12:44 | disposition home or self-care (01) ==
LOC: ED 09:24
DX: R11.10 Vomiting, unspecified (principal); T42.0X5A Adverse effect of hydantoin derivatives, initial encounter; Y92.9 Unspecified place or not applicable; I10 Essential (primary) hypertension; G40.909 Epilepsy, unspecified, not intractable, without status epilepticus; Z79.899 Other long term (current) drug therapy
CPT/HCPCS: 36000; 36415; 73562; 74176; 80053; 80185; 81001; 82150; 83605; 83690; 85025; 87631; 96360; 96361; 96374; 96375; 99284; J2175; J2405; Q0162

== ENCOUNTER 2020-04-25 14:32 | Emergency (ER) | payer OTHER ==
[2020-04-25 15:03] VITALS: O2SAT 98
[2020-04-25] MEDS ORDERED: PERCOCET TABLET 5/325MG PO ONE (15:05)
--- NOTE | 2020-04-25 15:11 | ERPHSYRPT ---
- History of Present Illness Time Seen by Provider: 04/25/20 14:51 Source: patient Exam Limitations: no limitations Patient Subjective Stated Complaint: pt reports chronic left knee pain, states a few days ago he fell, causing further pain. pt reports he needs a knee repla cement because his joint is "[id number]". pt is short of breath which he states is per his norm. reports he has emphysema. Triage Nursing Assessment: pt is aox3, pupils perrl, afebrile, pt is short of breath upon exam, cap refill < 3 seconds, radial pulses strong and equal, slight swelling noted to the left knee, no deformity or obvious injury noted. pt skin pink warm dry. Physician History: 64 years old male with multiple medical problems including emphysema with chronic respiratory issues presented in the ER with chief complaint of left knee pain after he accidentally encountered a fall at home 4 days ago. Since then he is complaining of swelling and sharp nature moderate intensity pain which is aggravated with weightbearing and movements and partial relief with being still/taking Tylenol. Pain is more on the medial side of the knee. Patient has osteoarthritis and chronic left knee pain at his baseline and this fall has flared up. No injury anywhere else. Shortness of breath at his baseline and patient states "I actually feeling better now". Method of Injury: fell Occurred: days ago (4) Quality: constant, sharpness Severity of Pain-Max: moderate Severity of Pain-Current: moderate Lower Extremities Pain: knee: left Modifying Factors: Improves With: immobilization, rest. Worsens With: movement Allergies/Adverse Reactions: codeine Allergy (Severe, Verified 04/25/20 15:02) stop breathing hydrocodone Allergy (Severe, Verified 04/25/20 15:02) stop breathing morphine Allergy (Severe, Verified 04/25/20 15:02) stop breathing Penicillins Allergy (Verified 04/25/20 15:02) Home Medications: Amitriptyline HCl 75 mg PO HS 11/25/17 [History] Amlodipine Besylate 10 mg [Norvasc 10 MG] 10 mg PO DAILY 11/25/17 [History] Carbamazepine 200 mg [Tegretol 200 MG] 200 mg PO BID 11/25/17 [History] Lisinopril/Hydrochlorothiazide [Lisinopril-Hctz 20-25 mg Tab] 2 each PO DAILY 11/25/17 [History] Metoprolol Succinate 100 mg [Toprol Xl 100 MG] 100 mg PO DAILY 11/25/17 [History] Mometasone Furoate [Nasonex] 17 gm NS DAILY 11/25/17 [History] Phenytoin Sod Extended 100 mg* [Dilantin 100 MG] 200 mg PO TID 11/25/17 [History] Terazosin HCl 2 mg PO HS 11/25/17 [History] Atorvastatin Calcium [Lipitor] 20 mg PO DAILY 03/14/19 [History] Fenofibrate Nanocrystallized [Fenofibrate] 1 tab PO DAILY 03/14/19 [History] Gabapentin 300 mg PO TID 03/14/19 [History] Loratadine 10 mg [Claritin 10 mg] 10 mg PO DAILY 03/14/19 [History] Omeprazole 20 mg PO DAILY 03/14/19 [History] Phenylephrine HCl [Sudogest PE] 20 mg PO BID 03/14/19 [History] Hx Tetanus, Diphtheria Vaccination/Date Given: Yes Hx Influenza Vaccination/Date Given: Yes Hx Pneumococcal Vaccination/Date Given: Yes Immunizations Up to Date: Yes Travel Risk - International Travel Have you traveled outside of the country in past 3 weeks: No - Coronavirus Screening Are you exhibiting any of the following symptoms?: No Close contact with a COVID-19 positive Pt in past 14-21 Days: No - Review of Systems Constitutional: No Symptoms Eyes: No Symptoms Ears, Nose, & Throat: No Symptoms Respiratory: Dyspnea Cardiac: No Symptoms Abdominal/Gastrointestinal: No Symptoms Genitourinary Symptoms: No Symptoms Musculoskeletal: Arthralgias, Fall, Injury, Joint Pain, Joint Swelling Skin: No Symptoms Psychological: No Symptoms Hematologic/Lymphatic: No Symptoms - Past Medical History Pertinent Past Medical History: Yes Neurological History: Seizures, Stroke ENT History: Other Cardiac History: Coronary Artery Disease, High Cholesterol, Myocardial Infarction ([place]) Respiratory History: COPD Endocrine Medical History: No Pertinent History Musculoskeletal History: Arthritis GI Medical History: No Pertinent History History: Other Psycho-Social History: Depression Male Reproductive Disorders: No Pertinent History 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 - Past Surgical History Past Surgical History: Yes Neuro Surgical History: No Pertinent History Cardiac: Cardiac Catheterization, Cardiac Stent Respiratory: No Pertinent History Gastrointestinal: No Pertinent History Genitourinary: Kidney Surgery, Other Musculoskeletal: No Pertinent History Male Surgical History: No Pertinent History Other Surgical History: right knee surgery - Social History Smoking Status: Former smoker Exposure to second hand smoke: No Drug Use: none Patient Lives Alone: No - Nursing Vital Signs Nursing Vital Signs: Initial Vital Signs Temperature 98.9 F 04/25/20 14:39 Pulse Rate 108 H 04/25/20 14:39 Respiratory Rate 28 H 04/25/20 14:39 Blood Pressure 137/98 04/25/20 14:39 O2 Sat by Pulse Oximetry 98 04/25/20 14:39 Pain Scale Pain Intensity 7 - Physical Exam General Appearance: no apparent distress, alert Eyes, Ears, Nose, Throat Exam: pharynx normal Neck Exam: normal inspection, supple, full range of motion Cardiovascular/Respiratory Exam: regular rate/rhythm, wheezing Knees Exam: right knee: non-tender, normal inspection, normal range of motion, no evidence of injury, left knee: bone tenderness, joint effusion, pain, soft tissue tenderness, swelling Ankle Exam: bilateral ankle: non-tender, normal inspection, normal range of motion Neuro/Tendon Exam: normal sensation, normal motor functions Mental Status Exam: alert, oriented x 3, cooperative Skin Exam: normal color SpO2 Interpretation: normal SpO2: 98 O2 Delivery: Room Air Ordered Tests: Active Orders 24 hr Category Date Time Status KNEE (3 VIEWS) Stat Exams 04/25/20 15:53 Taken Medication Summary Discontinued Medications Generic Name Dose Route Start Last Admin Trade Name Nickq PRN Reason Stop Dose Admin Oxycodone/Acetaminophen 1 tab 04/25/20 15:05 04/25/20 15:23 Percocet Tablet 5/325mg PO 04/25/20 15:06 1 tab STAT ONE Administration Oxycodone/Acetaminophen Confirm 04/25/20 15:21 Percocet Tablet 5/325mg Administered 04/25/20 15:22 Dose 1 tab .ROUTE .STK-MED ONE - Progress Progress: improved, pain not gone completely Progress Note: 04/25/20 16:01 Is given symptomatic treatment for pain, on reevaluation feeling better. X-rays did not show any obvious fracture dislocation reviewed by me. Official report is pending. Patient has severe orthostatic changes with some infusion. Placed in a knee brace, recommended using cane/walker all the time for ambulation and pain medication along with outpatient orthopedic surgery follow-up for possible knee replacement. Discussed signs symptoms of worsening needing return to ER which patient seems understanding. Counseled pt/family regarding: diagnosis, need for follow-up, rad results - Departure Departure Disposition: Home Clinical Impression: Acute pain of left knee Condition: Stable Critical Care Time: No Referrals: ULISES GEORGES MD [Primary Care Provider] - Follow Up with PCP/3 days MARK SHAVER MD [NON-STAFF PHY W/O PRIVILEGES] - Follow Up with PCP/3 days Instructions: Knee Pain (DC) Additional Instructions: Avoid exertional activities. Use walker/cane all the time for ambulation. Apply ice. Take pain medications as needed. Follow-up with orthopedic surgery for reevaluation. Return to ER for any worsening pain swelling, difficulty ambulation etc. Prescriptions: Oxycodone HCl/Acetaminophen [Percocet 5-325 mg Tablet] 1 each PO Q6H PRN PRN 3 Days #12 tablet MDD 4 PRN Reason: Pain
[2020-04-25] MEDS ORDERED: PERCOCET TABLET 5/325MG ONE (15:21)
[2020-04-25 16:25] VITALS: BP 130/97; PULSE 100
--- NOTE | 2020-04-26 10:01 | XRAY ---
Exam: 3 views of the left knee from 04/25/2020. Comparison: 3 views of the left knee from 03/14/2019. Indication: 64-year-old male fell, pain within left knee. Findings: AP, oblique, and lateral radiographs of the left knee were obtained. I see no acute fracture or dislocation. There appears to be a moderate suprapatellar joint effusion which is greater than that seen on 03/14/2019. I also note moderate to marked narrowing of the patellofemoral joint with moderate anterior/posterior and superior/inferior marginal patellar spurring indicating osteoarthritis. I also note some mild spurring at both the anterior and posterior margins of the supracondylar region of the distal left femur. The medial compartment of the left knee joint is not well seen in profile, but I suspect that it is significantly narrowed with some marginal osteophyte formation medially. There is also hypertrophic change of the tibial eminences. Mild to moderate narrowing of the lateral compartment of the left knee joint space is seen. Impression: 1. No acute left knee fracture or dislocation is seen. 2. Tricompartmental osteoarthritis of the left knee, affecting the patellofemoral joint and medial compartment of the left knee joint to the greatest extent. This appears to have progressed some as compared to 03/14/2019. 3. Moderate suprapatellar left knee joint effusion is seen on the lateral radiograph. This is greater than that seen on 03/14/2019.
== END 2020-04-25 16:27 | disposition home or self-care (01) ==
LOC: ED 14:32
DX: M25.562 Pain in left knee (principal); W19.XXXA Unspecified fall, initial encounter; M19.90 Unspecified osteoarthritis, unspecified site
CPT/HCPCS: 73562; 99283; A9270-GY

== ENCOUNTER 2020-10-27 12:45 | Emergency (ER) | payer OTHER ==
--- NOTE | 2020-10-27 12:49 | ERPHSYRPT ---
- History of Present Illness Time Seen by Provider: 10/27/20 12:48 Source: patient Exam Limitations: no limitations Physician History: This is a right-handed, morbidly obese 65-year-old white male who presents with left wrist pain after sustaining a fall early this morning approximately between 1:00 and 2:00 in the morning. Patient was sleeping in recliner and someone had put a blanket over him. He got up suddenly and tripped over the blanket falling on his outstretched left hand. Patient has no other complaints. He did not hit his head. He has no other complaints of pain. Patient does have a seizure disorder but he denies having a seizure. Occurred: this morning Reason for Fall: tripped (Tripped over a blanket), fell from standing pos Injuries/Pain Location: upper extremity (Left wrist) Loss of Consciousness: no loss of consciousness Quality: aching Severity of Pain-Max: moderate Severity of Pain-Current: moderate Modifying Factors: Improves With: movement Associated Symptoms (Fall): extremity injury (Left wrist), shortness of breath (Chronic. He does not want or feel he needs any intervention. He has chronic COPD) Allergies/Adverse Reactions: codeine Allergy (Severe, Verified 10/27/20 13:04) stop breathing hydrocodone Allergy (Severe, Verified 10/27/20 13:04) stop breathing morphine Allergy (Severe, Verified 10/27/20 13:04) stop breathing Penicillins Allergy (Verified 10/27/20 13:04) Home Medications: Amitriptyline HCl 75 mg PO HS 11/25/17 [History] Amlodipine Besylate 10 mg [Norvasc 10 MG] 10 mg PO DAILY 11/25/17 [History] Carbamazepine 200 mg [Tegretol 200 MG] 200 mg PO BID 11/25/17 [History] Lisinopril/Hydrochlorothiazide [Lisinopril-Hctz 20-25 mg Tab] 2 each PO DAILY 11/25/17 [History] Metoprolol Succinate 100 mg [Toprol Xl 100 MG] 100 mg PO DAILY 11/25/17 [History] Mometasone Furoate [Nasonex] 17 gm NS DAILY 11/25/17 [History] Phenytoin Sod Extended 100 mg* [Dilantin 100 MG] 200 mg PO TID 11/25/17 [History] Terazosin HCl 2 mg PO HS 11/25/17 [History] Atorvastatin Calcium [Lipitor] 20 mg PO DAILY 03/14/19 [History] Fenofibrate Nanocrystallized [Fenofibrate] 1 tab PO DAILY 03/14/19 [History] Gabapentin 300 mg PO TID 03/14/19 [History] Loratadine 10 mg [Claritin 10 mg] 10 mg PO DAILY 03/14/19 [History] Omeprazole 20 mg PO DAILY 03/14/19 [History] Phenylephrine HCl [Sudogest PE] 20 mg PO BID 03/14/19 [History] Hx Tetanus, Diphtheria Vaccination/Date Given: Yes Hx Influenza Vaccination/Date Given: Yes Hx Pneumococcal Vaccination/Date Given: Yes Travel Risk - International Travel Have you traveled outside of the country in past 3 weeks: No - Coronavirus Screening Are you exhibiting any of the following symptoms?: No Close contact with a COVID-19 positive Pt in past 14-21 Days: No - Review of Systems Constitutional: No Symptoms Eyes: No Symptoms Ears, Nose, & Throat: No Symptoms Respiratory: No Symptoms Cardiac: No Symptoms Abdominal/Gastrointestinal: No Symptoms Genitourinary Symptoms: No Symptoms Musculoskeletal: Fall, Injury (Left wrist) Skin: No Symptoms Neurological: No Symptoms Psychological: No Symptoms Endocrine: No Symptoms Hematologic/Lymphatic: No Symptoms Immunological/Allergic: No Symptoms All Other Systems: Reviewed and Negative - Past Medical History Pertinent Past Medical History: Yes Neurological History: Seizures, Stroke ENT History: Other Cardiac History: Coronary Artery Disease, High Cholesterol, Myocardial Infarction ([place]) Respiratory History: COPD Endocrine Medical History: No Pertinent History Musculoskeletal History: Arthritis GI Medical History: No Pertinent History History: Other Psycho-Social History: Depression Male Reproductive Disorders: No Pertinent History 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 - Past Surgical History Past Surgical History: Yes Neuro Surgical History: No Pertinent History Cardiac: Cardiac Catheterization, Cardiac Stent Respiratory: No Pertinent History Gastrointestinal: No Pertinent History Genitourinary: Kidney Surgery, Other Musculoskeletal: No Pertinent History Male Surgical History: No Pertinent History Other Surgical History: right knee surgery - Social History Smoking Status: Former smoker Exposure to second hand smoke: No Drug Use: none Patient Lives Alone: No - Nursing Vital Signs Nursing Vital Signs: Initial Vital Signs Temperature 97.8 F 10/27/20 12:58 Pulse Rate 93 H 10/27/20 12:58 Respiratory Rate 22 10/27/20 12:58 Blood Pressure 112/69 10/27/20 12:58 O2 Sat by Pulse Oximetry 97 10/27/20 12:58 Pain Scale Pain Intensity 8 - [place] Coma Score Best Eye Response ([place]): (4) open spontaneously Best Verbal Response ([place]): (5) oriented Best Motor Response ([place]): (6) obeys commands [place] Total: 15 - Physical Exam General Appearance: no apparent distress, alert, anxiety, obese Head Injury: no evidence of injury Eye Exam: PERRL/EOMI, eyes nml inspection ENT Exam: airway nml, nml ext.inspection Neck Exam: supple, trachea midline, full range of motion, normal alignment, normal inspection Respiratory/Chest Exam: No chest tenderness, No respiratory distress Gastrointestinal Exam: No tenderness Rectal Exam: not done Back Exam: normal inspection, normal range of motion, No CVA tenderness, No vertebral tenderness Extremity Exam: pelvis stable, limited range of motion (Left wrist with movement and palpation), pain with movement, tenderness (With movement and palpation lef t wrist), No deformities Neurologic Exam: alert, oriented x 3, cooperative, 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 There are degenerative changes noted. Counseled pt/family regarding: diagnosis, need for follow-up, rad results - Departure Departure Disposition: Home Clinical Impression: Left wrist sprain Condition: Stable Critical Care Time: No Referrals: ULISES GEORGES MD [Primary Care Provider] - Additional Instructions: Ice pack to area three times a day for the next 48 hours. If not allergic, use Tylenol ibuprofen for pain control. Follow-up in [facility] Sunday through Sunday 8 AM to 10 AM for further evaluation if you have persistent pain beyond 2 to 3 days. Wear the Velcro wrist splint for comfort.
[2020-10-27 13:03] VITALS: BP 112/69; PULSE 93; O2SAT 97
--- NOTE | 2020-10-27 13:58 | XRAY ---
Indication: Pain following fall. Comparison: None 3 view left wrist demonstrates moderate/advanced 1st metacarpal multangular scaphoid degenerative changes with heterotopic ossifications and radiocarpal degenerative joint space loss with subcortical cysts. No other bony, articular, or soft tissue abnormalities.
== END 2020-10-27 14:34 | disposition home or self-care (01) ==
LOC: ED 12:45
DX: S63.502A Unspecified sprain of left wrist, initial encounter (principal); W01.198A Fall on same level from slipping, tripping and stumbling with subsequent striking against other object, initial encounter; Y93.89 Activity, other specified; Y92.89 Other specified places as the place of occurrence of the external cause; M25.532 Pain in left wrist; J44.9 Chronic obstructive pulmonary disease, unspecified; I25.10 Atherosclerotic heart disease of native coronary artery without angina pectoris; I25.2 Old myocardial infarction
CPT/HCPCS: 73110; 99283; L3908

== ENCOUNTER 2021-08-22 06:35 | Inpatient (IN) | payer OTHER ==
[2021-08-22] MEDS ORDERED: DUONEB 0.5-3 MG/3 ml Neb IH ONE ×2 (06:45→10:05)
[2021-08-22] MEDS ORDERED: Quelicin Fliptop 200 MG/10 ML IV STA (06:50)
[2021-08-22] MEDS: Propofol 1000 mg/100 ml Bottle 100 ML IV PRN ×4 (06:54→21:51)
[2021-08-22] MEDS ORDERED: LEVOFLOXACIN 750MG/150ML D5W 750 MG/150 ML BAG IV STA (06:57)
[2021-08-22] MEDS ORDERED: AZACTAM 1 GM*** 2 GM in Sodium Chloride 0.9% 100 ML BAG 100 ML IV ONE (06:58)
[2021-08-22] MEDS ORDERED: DIPRIVAN 200 MG/20 ML IV STA (07:00)
[2021-08-22] MEDS ORDERED: Amidate 20 MG/10 ML IV STA (07:00)
--- NOTE | 2021-08-22 07:01 | ERPHSYRPT ---
<JANNET MASSEY - Last Filed: 08/22/21 08:51> - History of Present Illness Source: patient, EMS Exam Limitations: clinical condition Timing/Duration: day(s) (3), constant, gradual onset, worse Activities at Onset: activity, rest Severity of Dyspnea-Max: severe Severity of Dyspnea-Current: severe Possible Cause: unknown cause Modifying Factors: Worsens With: coughing, deep breath, exertion Associated Symptoms: cough, heaviness, productive cough, tightness Hx Tetanus, Diphtheria Vaccination/Date Given: Yes Hx Influenza Vaccination/Date Given: Yes Hx Pneumococcal Vaccination/Date Given: Yes <CISCO PRO - Last Filed: 08/23/21 07:44> - History of Present Illness Time Seen by Provider: 08/22/21 06:54 Physician History: 65 years old male with history of hypertension, hyperlipidemia, coronary artery disease status post stenting presented in the ER with chief complaint of worsening shortness of breath for the last 3 days initially with activity and now resting. He is not able to tolerate his CPAP. On EMS arrival oxygen saturation was in the 80s, placed on nonrebreather which he did not tolerate, was given Solu-Medrol and on presentation in the ER patient is in moderate to severe distress with accessory muscles use and unable to complete a sentence. Patient denies any chest pain but tightness and has very little air moving. No fever or chills reported but has productive cough. (CISCO PRO) Allergies/Adverse Reactions: codeine Allergy (Severe, Verified 08/22/21 07:29) stop breathing hydrocodone Allergy (Severe, Verified 08/22/21 07:29) stop breathing morphine Allergy (Severe, Verified 08/22/21 07:29) stop breathing Penicillins Allergy (Verified 08/22/21 07:29) Home Medications: Amitriptyline HCl 75 mg PO BID 11/25/17 [History] Amlodipine Besylate 10 mg [Norvasc 10 MG] 10 mg PO DAILY 11/25/17 [History] Metoprolol Succinate 100 mg [Toprol Xl 100 MG] 100 mg PO DAILY 11/25/17 [History] Phenytoin Sod Extended 100 mg* [Dilantin 100 MG] 600 mg PO UD 11/25/17 [History] Fenofibrate Nanocrystallized [Fenofibrate] 1 tab PO DAILY 03/14/19 [History] Gabapentin 300 mg PO TID 03/14/19 [History] Albuterol Sulfate [Proair Hfa] 1 inh PO Q46H 08/22/21 [History] Aspirin EC 81 mg [Ecotrin 81 mg] 81 mg PO DAILY 08/22/21 [History] Buspirone HCl 5 mg [Buspar 5 mg] 10 mg PO BID 08/22/21 [History] Furosemide 40 mg [Lasix 40 MG] 40 mg PO DAILY 08/22/21 [History] Mirtazapine 30 mg [Remeron 30 mg] 30 mg PO HS 08/22/21 [History] Pramipexole Di-HCl [Pramipexole Dihydrochloride] 1 mg PO BID 08/22/21 [History] Sertraline HCl [Zoloft] 100 mg PO DAILY 08/22/21 [History] Travel Risk - Vaccine Status Have you recieved a Covid-19 vaccination: No <CISCO PRO - Last Filed: 08/23/21 07:44> - Review of Systems All Other Systems: Unable due to condition <CISCO PRO - Last Filed: 08/23/21 07:44> - Past Medical History Pertinent Past Medical History: Yes Neurological History: Seizures, Stroke ENT History: Other Cardiac History: Coronary Artery Disease, High Cholesterol, Myocardial Infarction (DC) Respiratory History: COPD Endocrine Medical History: No Pertinent History Musculoskeletal History: Arthritis GI Medical History: No Pertinent History History: Other Psycho-Social History: Depression Male Reproductive Disorders: No Pertinent History 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 - Past Surgical History Past Surgical History: Yes Neuro Surgical History: No Pertinent History Cardiac: Cardiac Catheterization, Cardiac Stent Respiratory: No Pertinent History Gastrointestinal: No Pertinent History Genitourinary: Kidney Surgery, Other Musculoskeletal: No Pertinent History Male Surgical History: No Pertinent History Other Surgical History: right knee surgery - Social History Smoking Status: Former smoker Exposure to second hand smoke: No Drug Use: none Patient Lives Alone: No <CISCO PRO - Last Filed: 08/23/21 07:44> - Physical Exam General Appearance: severe distress, alert Eye Exam: PERRL/EOMI, eyes nml inspection Ears, Nose, Throat Exam: hearing grossly normal, normal ENT inspection, normal pharynx Neck Exam: normal inspection, supple, full range of motion Respiratory Exam: respiratory distress, diminished breath sounds, accessory muscle use, rhonchi Cardiovascular/Chest Exam: normal heart sounds, tachycardia Abdominal/Gastrointestinal Exam: soft, other (Ulceration at umbilicus), No tenderness Extremity Exam: non-tender, normal range of motion Neurologic Exam: alert, oriented x 3, cooperative, 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 Skin Exam: normal color SpO2 Interpretation: hypoxic, O2 applied SpO2: 94 O2 Delivery: Non-rebreather <CISCO PRO - Last Filed: 08/23/21 07:44> - Nursing Vital Signs Nursing Vital Signs: Initial Vital Signs Temperature 103.4 F 08/22/21 06:36 Pulse Rate 146 H 08/22/21 06:36 Respiratory Rate 48 H 08/22/21 06:36 Blood Pressure 159/99 08/22/21 06:36 O2 Sat by Pulse Oximetry 97 08/22/21 06:36 Pain Scale Pain Intensity 0 Procedures - Intubation Time of Intubation: 06:47 Intubation Indications: respiratory distress Intubation Method: glidescope Tube Size (cm): 7.5 Medications: Etomidate, Succinylcholine Endotracheal Tube Confirmation: bilateral breath sounds, good rise & fall of chest, stable or inc of O2 sat Intubation Complications: no complications Performed By: ED Physician Post Intubation Xray: Yes <CISCO PRO - Last Filed: 08/23/21 07:44> Ordered Tests: Active Orders 24 hr Category Date Time Status Bedrest TOLERATED Activity 08/22/21 10:30 Active Admit as Inpatient ROUTINE Care 08/22/21 10:30 Active Scallop Binder STAT Care 08/22/21 06:57 Completed Code Status Order ROUTINE Care 08/22/21 10:30 Active EKG-ER Only STAT Care 08/22/21 06:56 Completed [place]uga [Catheter-[place] P[place]] STAT Care 08/22/21 10:30 Completed IV Insertion STAT Care 08/22/21 06:56 Completed NPO Diet 08/22/21 10:31 Active ARTERIAL BLOOD GASES Stat Lab 08/22/21 06:56 Completed BLOOD CULTURE Stat Lab 08/22/21 07:07 Received CBC W DIFF AM.LAB Lab 08/23/21 04:10 Completed CBC W DIFF Stat Lab 08/22/21 07:00 Completed CMP AM.LAB Lab 08/23/21 04:10 Completed CMP Stat Lab 08/22/21 07:00 Completed CULTURE,URINE Stat Lab 08/22/21 06:56 Results Lactic Acid Stat Lab 08/22/21 06:56 Completed MAGNESIUM Stat Lab 08/22/21 07:00 Completed NT PRO BNP AM.LAB Lab 08/23/21 04:10 Completed NT PRO BNP Stat Lab 08/22/21 07:00 Completed TROPONIN Q3H Lab 08/22/21 07:00 Completed TROPONIN Q3H Lab 08/22/21 10:13 Completed TROPONIN Q3H Lab 08/22/21 13:30 Completed TROPONIN Q3H Lab 08/22/21 16:00 Completed TROPONIN Q3H Lab 08/22/21 19:30 Completed EKG REPEAT IN AM RT 08/22/21 10:30 Active Intubate Patient STAT RT 08/22/21 07:14 Completed Pulse Oximetry .continuos RT 08/22/21 10:30 Active Respiratory Therapy Consult ROUTINE RT 08/22/21 10:30 Completed Medication Summary Generic Name Dose Route Start Last Admin Trade Name Freq PRN Reason Stop Dose Admin Acetaminophen 650 mg 08/22/21 10:30 08/23/21 03:03 Acetaminophen 650 Mg Supp.Rect TN 09/21/21 10:29 650 mg Q4H PRN PRN Administration PAIN AND/OR FEVER Albuterol/Ipratropium 3 ml 08/22/21 11:00 08/23/21 06:52 Ipratropium/Albuterol Sulfate 3 Ml Ampul.Neb IH 09/21/21 10:59 3 ml Q4HRT JAY Administration Amitriptyline HCl 25 mg 08/22/21 22:00 08/22/21 22:01 Amitriptyline Hcl 25 Mg Tablet PO 09/21/21 21:59 25 mg BID JAY Administration Amitriptyline HCl 50 mg 08/22/21 22:00 08/22/21 22:01 Amitriptyline Hcl 50 Mg Tablet PO 09/21/21 21:59 50 mg BID JAY Administration Amlodipine Besylate 10 mg 08/23/21 10:00 Amlodipine Besylate 5 Mg Tablet PO 09/22/21 09:59 DAILY JAY Aspirin 81 mg 08/23/21 10:00 Aspirin 81 Mg Tablet.Ec PO 09/22/21 09:59 DAILY JAY Buspirone HCl 10 mg 08/22/21 22:00 08/22/21 21:59 Buspirone Hcl 5 Mg Tablet PO 09/21/21 21:59 10 mg BID JAY Administration Enoxaparin Sodium 40 mg 08/22/21 10:30 08/22/21 13:34 Enoxaparin Sodium 40 Mg/0.4 Ml Syringe SQ 09/21/21 10:29 40 mg DAILY JAY Administration Furosemide 40 mg 08/23/21 10:00 Furosemide 40 Mg Tablet PO 09/22/21 09:59 DAILY JAY Gabapentin 300 mg 08/22/21 22:00 08/22/21 22:00 Gabapentin 300 Mg Capsule PO 09/21/21 21:59 300 mg TID JAY Administration Propofol 100 mls @ 10.08 mls/hr 08/22/21 07:25 08/23/21 06:33 Propofol 1000 Mg/100 Ml Bottle IV 09/21/21 07:24 45 mcg/kg/min .Q9H56M PRN 30.24 mls/hr SEDATION FOR VENT Administration Protocol 15 MCG/KG/MIN Sodium Chloride 1,000 mls @ 50 mls/hr 08/22/21 10:30 08/22/21 18:16 Sodium Chloride 0.9% 1000 Ml IV 09/21/21 10:29 50 mls/hr .Q20H JAY Administration Levofloxacin/Dextrose 500 mg in 100 mls @ 100 mls/hr 08/22/21 10:30 08/22/21 13:37 Levofloxacin 500mg/100ml D5w IV 09/21/21 10:29 100 mls/hr Q24H10 JAY Administration Cisatracurium Besylate 200 mg/ 200 mls @ 20.16 mls/hr 08/22/21 13:00 08/23/21 03:02 Dextrose IV 09/21/21 12:59 2 mcg/kg/min .Q9H56M PRN 13.44 mls/hr PARALYSIS Administration Protocol 3 MCG/KG/MIN Aztreonam 1 gm/ Sodium 100 mls @ 200 mls/hr 08/22/21 13:00 08/23/21 05:51 Chloride IV 08/25/21 12:59 200 mls/hr Q6HT JAY Administration Fentanyl Citrate 1,500 mcg/ 150 mls @ 2.5 mls/hr 08/22/21 16:38 08/22/21 21:55 Sodium Chloride IV 09/21/21 16:37 0.7 mcg/kg/hr .Q24H PRN 8.75 mls/hr PAIN Titration Protocol 0.2 MCG/KG/HR Metoprolol Succinate 100 mg 08/23/21 10:00 Metoprolol Succinate 100 Mg Tablet.Sa PO 09/22/21 09:59 DAILY JAY Mirtazapine 30 mg 08/22/21 22:00 08/22/21 22:00 Mirtazapine 30 Mg Tablet PO 09/21/21 21:59 30 mg HS JAY Administration Miscellaneous Information 1 each 08/22/21 13:45 Medication Intervention 1 Each Each 09/21/21 13:44 .RN TO CHECK JAY Ondansetron HCl 4 mg 08/22/21 10:30 Ondansetron Hcl 4 Mg/2 Ml Vial IV 09/21/21 10:29 Q6H PRN PRN NAUSEA/VOMITING Pantoprazole Sodium 40 mg 08/22/21 10:30 08/22/21 13:34 Pantoprazole 40 Mg Vial IV 09/21/21 10:29 40 mg Q24H JAY Administration Phenytoin Sodium 300 mg 08/23/21 08:00 Phenytoin Sodium Extended 100 Mg Capsule PO 09/22/21 07:59 BREAKFAST JAY Phenytoin Sodium 100 mg 08/23/21 12:00 Phenytoin Sodium Extended 100 Mg Capsule PO 09/22/21 11:59 NOON JAY Phenytoin Sodium 200 mg 08/22/21 22:00 08/22/21 21:59 Phenytoin Sodium Extended 100 Mg Capsule PO 09/21/21 21:59 200 mg QPM JAY Administration Pramipexole Dihydrochloride 1 mg 08/22/21 22:00 08/22/21 22:01 Pramipexole Di-Hcl 0.5 Mg Tab PO 09/21/21 21:59 1 mg BID JAY Administration Sertraline HCl 100 mg 08/23/21 10:00 Sertraline Hcl 50 Mg Tab PO 09/22/21 09:59 DAILY JAY Discontinued Medications Generic Name Dose Route Start Last Admin Trade Name Freq PRN Reason Stop Dose Admin Acetaminophen Confirm 08/22/21 07:05 Acetaminophen 325mg Suppository Administered 08/22/21 07:06 Dose 650 mg .ROUTE .STK-MED ONE Acetaminophen 650 mg 08/22/21 08:04 08/22/21 07:09 Acetaminophen 325mg Suppository TN 08/22/21 08:05 650 mg STAT STA Administration Albuterol Sulfate 2 puff 08/22/21 15:00 Albuterol Common Canister Inhaler IH 09/21/21 14:59 Q4HRT JAY Albuterol/Ipratropium Confirm 08/22/21 10:05 Ipratropium/Albuterol Sulfate 3 Ml Ampul.Neb Administered 08/22/21 10:06 Dose 3 ml IH .STK-MED ONE Cisatracurium Besylate 10 mg 08/22/21 13:00 08/22/21 12:50 Cisatracurium 20 Mg/10 Ml Vial IV 08/22/21 13:01 10 mg ONCE ONE Administration Etomidate 20 mg 08/22/21 07:00 08/22/21 06:46 Etomidate 20 Mg/10 Ml Amp IV 08/22/21 07:01 20 mg STAT STA Administration Fenofibrate 145 mg 08/23/21 10:00 Fenofibrate,Micronized 145 Mg Tablet PO 09/22/21 09:59 DAILY [facility] Fentanyl Citrate 100 mcg 08/22/21 08:02 08/22/21 08:04 Fentanyl Citrate 100 Mcg/2 Ml* Vial IV 08/22/21 08:03 100 mcg STAT ONE Administration Fentanyl Citrate Confirm 08/22/21 08:03 Fentanyl Citrate 100 Mcg/2 Ml* Vial Administered 08/22/21 08:04 Dose 100 mcg .ROUTE .STK-MED ONE Levofloxacin/Dextrose 750 mg in 150 mls @ 100 mls/hr 08/22/21 06:57 08/22/21 07:30 Levofloxacin 750mg/150ml D5w IV 08/22/21 08:26 100 ml/hr STAT STA 100 mls/hr Administration Aztreonam 2 gm/ Sodium 100 mls @ 200 mls/hr 08/22/21 06:58 08/22/21 08:47 Chloride IV 08/22/21 07:27 200 mls/hr STAT ONE Administration Rocuronium Rowe 100 mg/ 100 mls @ 33.6 mls/hr 08/22/21 07:25 08/22/21 07:14 Sodium Chloride IV 08/22/21 13:00 5 mcg/kg/min .Q2H59M PRN 33.6 mls/hr PARALYSIS FOR VENT Administration Protocol 5 MCG/KG/MIN Levofloxacin/Dextrose Confirm 08/22/21 07:29 Levofloxacin 750mg/150ml D5w Administered 08/22/21 07:30 Dose 750 mg in 150 mls @ ud IV .STK-MED ONE Sodium Chloride 1,000 mls @ 50 mls/hr 08/22/21 08:15 08/22/21 06:41 Sodium Chloride 0.9% 1000 Ml IV 09/21/21 08:14 50 mls/hr .Q20H JAY Administration Sodium Chloride 1,000 mls @ 250 mls/hr 08/22/21 08:15 08/22/21 08:11 Sodium Chloride 0.9% 1000 Ml IV 09/21/21 08:14 250 mls/hr .Q4H JAY Administration Aztreonam 1 gm/ Sodium 100 mls @ 200 mls/hr 08/22/21 12:00 08/22/21 17:27 Chloride IV 08/25/21 11:59 Not Given Q6HT JAY Non-Formulary Medication 1 each 08/22/21 10:46 08/22/21 15:14 Pharmacy Dosing Request 08/22/21 10:47 1 each STAT ONE Administration Non-Formulary Medication 75 mg 08/22/21 22:00 Amitriptyline Hcl [Amitriptyline Hcl] PO 09/21/21 21:59 BID JAY Phenytoin Sodium 600 mg 08/22/21 13:30 Phenytoin Sodium Extended 100 Mg Capsule PO 09/21/21 13:29 UD JAY Propofol 150 mg 08/22/21 07:00 08/22/21 06:54 Propofol 10 Mg/Ml 20ml Vial IV 08/22/21 07:01 150 mg STAT STA Administration Rocuronium Rowe 100 mg 08/22/21 07:25 08/22/21 06:56 Rocuronium Rowe 100 Mg/10ml Vial IV 08/22/21 07:26 100 mg STAT STA Administration Succinylcholine Chloride 150 mg 08/22/21 06:50 08/22/21 06:46 Succinylcholine Chloride 200mg/10 Ml Vial IV 08/22/21 06:51 150 mg STAT STA Administration Lab/Rad Data: Laboratory Result Diagrams 08/22/21 07:00 08/22/21 07:00 Laboratory Results 08/22/21 08/22/21 08/22/21 Range/Units 07:59 07:00 07:00 WBC (4.0-10.5) K/mm3 RBC (4.1-5.6) M/mm3 Hgb (12.5-18.0) gm/dl Hct (42-50) % MCV (78-100) fl MCH (26-32) pg MCHC (32-36) g/dl RDW (11.5-14.0) % Plt Count (150-450) K/mm3 MPV (7.5-11.0) fl Gran % (36.0-66.0) % Eos # (Auto) (0-0.5) Absolute Lymphs (auto) (1.0-4.6) Absolute Monos (auto) (0.0-1.3) Lymphocytes % (24.0-44.0) % Monocytes % (0.0-12.0) % Eosinophils % (0.00-5.0) % Basophils % (0.0-0.4) % Absolute Granulocytes (1.4-6.9) Basophils # (0-0.4) Puncture Site pCO2 (35-45) mmHg pO2 (75-100) mmHg Base Excess (-2.0-2.0) O2 Saturation (94-100) g/dF ABG pH (7.35-7.45) ABG HCO3 (22-28) ABG O2 Sat (Measured) (95-100) % Elian Test A-a Gradient a/A Ratio Hemoglobin Carboxyhemoglobin (0.0-6.9) % THgb Methemoglobin (1.4-1.5) % Potassium 3.6 (3.5-5.1) Temperature C POC O2 Flow Rate % Vent Mode Vent Rate /MIN Tidal Volume cc PEEP cmH2O Sodium 136 L (137-145) mmol/L Chloride 103 (98-107) mmol/L Carbon Dioxide 24 (22-30) mmol/L Anion Gap 12.7 (5-15) MEQ/L BUN 10 (9-20) mg/dL Creatinine 0.73 (0.66-1.25) mg/dL Estimated GFR > 60.0 ML/MIN Glucose 134 H (74-106) mg/dL Lactic Acid (0.4-2.0) Calcium 7.8 L (8.4-10.2) mg/dL Magnesium 1.7 (1.6-2.3) mg/dL Total Bilirubin 0.70 (0.2-1.3) mg/dL AST 68 H (17-59) U/L ALT 17 (0-50) U/L Alkaline Phosphatase 121 (38-126) U/L Troponin I < 0.012 (0.000-0.034) ng/mL NT-Pro-B Natriuret Pep 1340 H (0-900) pg/mL Serum Total Protein 7.9 (6.3-8.2) g/dL Albumin 3.9 (3.5-5.0) g/dL Urinalys Dipstick Clnc Urine Color (YELLOW) Urine Appearance (CLEAR) Urine pH (5-6) Ur Specific [place] (1.005-1.025) POC Urine Protein Conf (Negative) Urine Ketones (NEGATIVE) Urine Nitrite (NEGATIVE) Urine Bilirubin (NEGATIVE) Urine Urobilinogen (0-1) mg/dL Urine Leukocytes (NEGATIVE) Urine WBC (Auto) (0-5) /HPF Urine RBC (Auto) (0-2) /HPF U Hyaline Cast (Auto) (0-2) /LPF U Epithel Cells (Auto) (FEW) /HPF Urine Bacteria (Auto) (NEGATIVE) /HPF Urine RBC (0-5) Vickey/ul Urine Mucus (Auto) (NEGATIVE) /HPF Ur Culture Indicated? Urine Glucose (NEGATIVE) mg/dL Influenza Type A Ag NEGATIVE (NEGATIVE) Influenza Type B Ag NEGATIVE (NEGATIVE) RSV (PCR) NEGATIVE (Negative) SARS-CoV-2 (PCR) NEGATIVE (NEGATIVE) Slides for Path Review 08/22/21 08/22/21 08/22/21 Range/Units 07:00 06:56 06:56 WBC 16.3 H (4.0-10.5) K/mm3 RBC 4.55 (4.1-5.6) M/mm3 Hgb 8.6 L (12.5-18.0) gm/dl Hct 30.0 L (42-50) % MCV 65.9 L (78-100) fl MCH 18.9 L (26-32) pg MCHC 28.7 L (32-36) g/dl RDW 21.6 H (11.5-14.0) % Plt Count 321 (150-450) K/mm3 MPV 9.9 (7.5-11.0) fl Gran % 65.8 (36.0-66.0) % Eos # (Auto) 0 (0-0.5) Absolute Lymphs (auto) 4.04 (1.0-4.6) Absolute Monos (auto) 1.50 H (0.0-1.3) Lymphocytes % 24.9 (24.0-44.0) % Monocytes % 9.2 (0.0-12.0) % Eosinophils % 0.0 (0.00-5.0) % Basophils % 0.1 (0.0-0.4) % Absolute Granulocytes 10.70 H (1.4-6.9) Basophils # 0.01 (0-0.4) Puncture Site LEFT RADIAL pCO2 57 H (35-45) mmHg pO2 386 H* (75-100) mmHg Base Excess -3.1 L (-2.0-2.0) O2 Saturation 97.4 (94-100) g/dF ABG pH 7.25 L* (7.35-7.45) ABG HCO3 25.0 (22-28) ABG O2 Sat (Measured) 97.4 (95-100) % Elian Test NOT APPLICABLE A-a Gradient 256 a/A Ratio 0.60 Hemoglobin 8.9 Carboxyhemoglobin 0.0 (0.0-6.9) % THgb Methemoglobin 0.0 L (1.4-1.5) % Potassium 3.6 (3.5-5.1) Temperature 37.0 C POC O2 Flow Rate 100 % Vent Mode A/C Vent Rate 16 /MIN Tidal Volume 600 cc PEEP 5 cmH2O Sodium (137-145) mmol/L Chloride (98-107) mmol/L Carbon Dioxide (22-30) mmol/L Anion Gap (5-15) MEQ/L BUN (9-20) mg/dL Creatinine (0.66-1.25) mg/dL Estimated GFR ML/MIN Glucose (74-106) mg/dL Lactic Acid 1.3 (0.4-2.0) Calcium (8.4-10.2) mg/dL Magnesium (1.6-2.3) mg/dL Total Bilirubin (0.2-1.3) mg/dL AST (17-59) U/L ALT (0-50) U/L Alkaline Phosphatase (38-126) U/L Troponin I (0.000-0.034) ng/mL NT-Pro-B Natriuret Pep (0-900) pg/mL Serum Total Protein (6.3-8.2) g/dL Albumin (3.5-5.0) g/dL Urinalys Dipstick Clnc MAIN LAB Urine Color YELLOW (YELLOW) Urine Appearance CLEAR (CLEAR) Urine pH 6.5 (5-6) Ur Specific [place] 1.025 (1.005-1.025) POC Urine Protein Conf >=300 (Negative) Urine Ketones NEGATIVE (NEGATIVE) Urine Nitrite NEGATIVE (NEGATIVE) Urine Bilirubin NEGATIVE (NEGATIVE) Urine Urobilinogen 1 (0-1) mg/dL Urine Leukocytes NEGATIVE (NEGATIVE) Urine WBC (Auto) 6-10 (0-5) /HPF Urine RBC (Auto) 16-25 (0-2) /HPF U Hyaline Cast (Auto) 11-25 (0-2) /LPF U Epithel Cells (Auto) RARE (FEW) /HPF Urine Bacteria (Auto) FEW (NEGATIVE) /HPF Urine RBC MODERATE (0-5) Vickey/ul Urine Mucus (Auto) SLIGHT (NEGATIVE) /HPF Ur Culture Indicated? YES Urine Glucose NEGATIVE (NEGATIVE) mg/dL Influenza Type A Ag (NEGATIVE) Influenza Type B Ag (NEGATIVE) RSV (PCR) (Negative) SARS-CoV-2 (PCR) (NEGATIVE) Slides for Path Review YES - Progress Air Movement: fair Discussed with : Bijal Counseled pt/family regarding: lab results, diagnosis, rad results <JANNET MASSEY - Last Filed: 08/22/21 08:51> <CISCO PRO - Last Filed: 08/23/21 07:44> - Progress Progress Note: 08/22/21 08:36 Medical decision making: This patient is a DNR per patient family. Patient is on a mechanical ventilator. I spoke with Dr. Ibarra, the patient's primary c are provider, he agrees to admit the patient to the intensive care unit on the ventilator. He will be weaned off the ventilator. He will be treated with intravenous antibiotics. Respiratory therapy will be involved with this patient's care. (JANNET MASSEY) 08/22/21 07:03 Patient presented with severe respiratory distress, is promptly intubated. X- ray showed infiltrative process bilaterally and given dose of antibiotics. Care is transferred to Dr. Massey at shift change. (CISCO PRO) - Departure Departure Disposition: In-patient Admission Critical Care Time: Yes Critical Care Time(excluding separately billable procedures): Critical 30-74 mins (40 minutes) <JANNET MASSEY - Last Filed: 08/22/21 08:51> - Departure Critical Care Time(excluding separately billable procedures): Critical 30-74 mins <CISCO PRO - Last Filed: 08/23/21 07:44> - Departure Clinical Impression: Respiratory distress Bilateral pneumonia Qualifiers: Pneumonia type: due to Pneumococcus Lung location: lower lobe of lung Qualified Code(s): J13 - Pneumonia due to Streptococcus pneumoniae Condition: Serious
[2021-08-22] MEDS ORDERED: FEVERALL 325 MG ONE (07:05)
[2021-08-22 07:16] LABS: A-aADO2 256; ABG HEMOGLOBIN 8.9; ABG POTASSIUM 3.6 (3.5-5.1); ABG SITE LEFT RADIAL; ARTERIAL BLD GAS O2 SATURATION 97.4 % (95-100); ARTERIAL BLD GAS TIDAL VOLUME 600 cc; ARTERIAL BLOOD GAS BASE EXCESS -3.1 (-2.0-2.0); ARTERIAL BLOOD GAS FIO2 100 %; ARTERIAL BLOOD GAS PCO2 57 mmHg (35-45); ARTERIAL BLOOD GAS PEEP 5 cmH2O; ARTERIAL BLOOD GAS PO2 386 mmHg (75-100); ARTERIAL BLOOD GAS VENT MODE A/C; ARTERIAL BLOOD GAS pH 7.25 (7.35-7.45); HGB O2 SAT 97.4 g/dF (94-100); Lactic Acid 1.3 (0.4-2.0)
[2021-08-22 07:17] LABS: ARTERIAL BLOOD GAS VENT RATE 16 /MIN
[2021-08-22] MEDS ORDERED: Zemuron 100 MG/10 ML IV STA (07:25)
[2021-08-22] MEDS ORDERED: Zemuron 100 MG/10 ML 100 MG in Sodium Chloride 0.9% 100 ML BAG 90 ML IV PRN (07:25)
[2021-08-22 07:26] LABS: Basophil (Absolute #) 0.01 (0-0.4); Eosinophil (Absolute #) 0 (0-0.5); Hemoglobin 8.6 gm/dl (12.5-18.0); Lymphocyte (Absolute #) 4.04 (1.0-4.6); Lymphocytes % 24.9 % (24.0-44.0); Mean Cell Volume 65.9 fl (78-100); Mean Corpuscular Hemoglobin 18.9 pg (26-32); Mean Corpuscular Hgb Concent. 28.7 g/dl (32-36); Mean Platelet Volume 9.9 fl (7.5-11.0); Monocytes % 9.2 % (0.0-12.0); Neutrophil % 65.8 % (36.0-66.0); Platelet Count 321 K/mm3 (150-450); Red Blood Count 4.55 M/mm3 (4.1-5.6); Red Cell Distribution Width 21.6 % (11.5-14.0); White Blood Count 16.3 K/mm3 (4.0-10.5)
[2021-08-22] MEDS ORDERED: LEVOFLOXACIN 750MG/150ML D5W 750 MG/150 ML BAG IV ONE (07:29)
[2021-08-22 07:47] LABS: ALBUMIN 3.9 g/dL (3.5-5.0); ALKALINE PHOSPHATASE 121 U/L (38-126); ANION GAP 12.7 MEQ/L (5-15); BLOOD UREA NITROGEN 10 mg/dL (9-20); CHLORIDE 103 mmol/L (98-107); Calcium 7.8 mg/dL (8.4-10.2); Carbon Dioxide 24 mmol/L (22-30); Creatinine 1 0.73 mg/dL (0.66-1.25); EST GLOMERULAR FILTRATION RATE > 60.0 ML/MIN; Glucose 134 mg/dL (74-106); MAGNESIUM 1.7 mg/dL (1.6-2.3); NT PRO BNP 1340 pg/mL (0-900); Potassium 3.6 mmol/L (3.5-5.1); SGOT/AST 68 U/L (17-59); SGPT/ALT 17 U/L (0-50); SODIUM 136 mmol/L (137-145); Total Protein 7.9 g/dL (6.3-8.2)
[2021-08-22 07:56] LABS: Bacteria FEW /HPF (NEGATIVE); Epithelial Cells RARE /HPF (FEW); Mucus SLIGHT /HPF (NEGATIVE)
[2021-08-22 07:59] LABS: Appearance CLEAR (CLEAR); Bilirubin NEGATIVE (NEGATIVE); Glucose NEGATIVE (NEGATIVE); Ketones NEGATIVE (NEGATIVE); Ph 6.5 (5-6); RBC MODERATE Ery/ul (0-5); Specific Gravity 1.025 (1.005-1.025)
[2021-08-22 08:00] LABS: Nitrite NEGATIVE (NEGATIVE); Protein,Urine Dip >=300 (Negative); Urine Cultured Indicated? YES; Urobilinogen 1 mg/dL (0-1)
[2021-08-22] MEDS ORDERED: SUBLIMAZE 100 MCG/2 ML IV ONE (08:02)
[2021-08-22] MEDS ORDERED: SUBLIMAZE 100 MCG/2 ML ONE (08:03)
[2021-08-22] MEDS ORDERED: FEVERALL 325 MG PR STA (08:04)
[2021-08-22] MEDS ORDERED: Sodium Chloride 0.9% 1000 ML 1,000 ML IV SCH ×2 (08:15)
[2021-08-22 08:53] LABS: Slide Review 1 YES
[2021-08-22 09:00] LABS: INFLUENZA A NEGATIVE (NEGATIVE); INFLUENZA B NEGATIVE (NEGATIVE); RESPIRATORY SYNCTIAL VIRUS NEGATIVE (Negative); SARS-CoV-2 Xpert Express NEGATIVE (NEGATIVE)
--- NOTE | 2021-08-22 09:21 | XRAY ---
Indication: Endotracheal tube placement. Comparison: November 25, 2017. Portable chest demonstrates new endotracheal tube tip 4 cm above lisa. Lungs less inflated with new subtle patchy bilateral airspace disease without consolidation/large effusion. Heart not enlarged. Bony thorax intact.
[2021-08-22] MEDS: DUONEB 0.5-3 MG/3 ml Neb IH SCH ×4 (10:27→23:15)
[2021-08-22] MEDS ORDERED: Zofran 4 MG/2 ML VIAL IV PRN (10:30)
[2021-08-22] MEDS ORDERED: PHARMACY DOSING REQUEST MC ONE (10:46)
[2021-08-22 11:13] LABS: Dipstick done @ ? MAIN LAB
[2021-08-22] MEDS ORDERED: AZACTAM 1 GM*** 1 GM in Sodium Chloride 100ML MINI-BAG PLUS 100 ML IV SCH (12:00)
[2021-08-22] MEDS: Nimbex 200MG/20 Ml MDV (HIGH RISK MED)** 200 MG in Dextrose 5%/Water IV Soln. 250 ML 18... IV PRN (12:51)
[2021-08-22] MEDS ORDERED: Nimbex 20MG/10 Ml Vial (HIGH RISK MED) IV ONE (13:00)
[2021-08-22 13:09] LABS: A-aADO2 111; ABG HEMOGLOBIN 8.4; ARTERIAL BLD GAS TIDAL VOLUME 600 cc; ARTERIAL BLOOD GAS BASE EXCESS -4.9 (-2.0-2.0); ARTERIAL BLOOD GAS FIO2 50 %; ARTERIAL BLOOD GAS PO2 168 mmHg (75-100); ARTERIAL BLOOD GAS VENT MODE A/C; HCO3- 24.2 (22-28)
[2021-08-22 13:10] LABS: ABG SITE LEFT RADIAL; ARTERIAL BLOOD GAS PCO2 62 mmHg (35-45)
[2021-08-22] MEDS ORDERED: Ventolin Hfa MDI IH SCH (13:30)
[2021-08-22] MEDS ORDERED: Dilantin 100 MG PO SCH (13:30)
[2021-08-22] MEDS: ENOXAPARIN SODIUM SQ SCH (13:34)
[2021-08-22] MEDS: PROTONIX 40 MG IV IV SCH (13:34)
[2021-08-22] MEDS: Levofloxacin 500MG/100ML D5W 500 MG/100 ML BAG IV SCH (13:37)
[2021-08-22] MEDS ORDERED: MEDICATION INTERVENTION MC SCH (13:45)
[2021-08-22] MEDS: FEVERALL 650 MG PR PRN (13:53)
[2021-08-22] MEDS: AZACTAM 1 GM*** 1 GM in Sodium Chloride 100ML MINI-BAG PLUS 100 ML IV SCH ×2 (14:00→18:17)
[2021-08-22] MEDS ORDERED: VENTOLIN COMMON CANISTER IH SCH (15:00)
--- NOTE | 2021-08-22 16:29 | PCM.HP ---
History of Present Illness - Chief Complaint Chief Complaint: severe shortness of breath for 1-2 days History of Present Illness: is a 65 year old male.with history of hypertension, hyperlipidemia, coronary artery disease status post stenting presented in the ER with chief complaint of worsening shortness of breath for the last 3 days initially with activity and now resting. He is not able to tolerate his CPAP. On EMS arrival oxygen saturation was in the 80s, placed on nonrebreather which he did not tolerate, was given Solu-Medrol and on presentation in the ER patient is in moderate to severe distress with accessory muscles use and unable to complete a sentence. Patient denies any chest pain but tightness and has very little air moving. No fever or chills reported but has productive cough. - Review of Systems All Other Systems: Unable due to condition Medications & Allergies Home Medications: Home Medication List Amitriptyline HCl 75 mg PO BID 11/25/17 [History Confirmed 08/22/21] Amlodipine Besylate 10 mg [Norvasc 10 MG] 10 mg PO DAILY 11/25/17 [History Confirmed 08/22/21] Metoprolol Succinate 100 mg [Toprol Xl 100 MG] 100 mg PO DAILY 11/25/17 [History Confirmed 08/22/21] Phenytoin Sod Extended 100 mg* [Dilantin 100 MG] 600 mg PO UD 11/25/17 [History Confirmed 08/22/21] Fenofibrate Nanocrystallized [Fenofibrate] 1 tab PO DAILY 03/14/19 [History Confirmed 08/22/21] Gabapentin 300 mg PO TID 03/14/19 [History Confirmed 08/22/21] Albuterol Sulfate [Proair Hfa] 1 inh PO Q46H 08/22/21 [History Confirmed 08/22/21] Aspirin EC 81 mg [Ecotrin 81 mg] 81 mg PO DAILY 08/22/21 [History Confirmed 08/22/21] Buspirone HCl 5 mg [Buspar 5 mg] 10 mg PO BID 08/22/21 [History Confirmed 08/22/21] Furosemide 40 mg [Lasix 40 MG] 40 mg PO DAILY 08/22/21 [History Confirmed 08/22/21] Mirtazapine 30 mg [Remeron 30 mg] 30 mg PO HS 08/22/21 [History Confirmed 08/22/21] Pramipexole Di-HCl [Pramipexole Dihydrochloride] 1 mg PO BID 08/22/21 [History Confirmed 08/22/21] Sertraline HCl [Zoloft] 100 mg PO DAILY 08/22/21 [History Confirmed 08/22/21] Allergies/Adverse Reactions: Allergies Allergy/AdvReac Type Severity Reaction Status Date / Time codeine Allergy Severe stop Verified 08/22/21 07:29 breathing hydrocodone Allergy Severe stop Verified 08/22/21 07:29 breathing morphine Allergy Severe stop Verified 08/22/21 07:29 breathing Penicillins Allergy Verified 08/22/21 07:29 - Past Medical History Past Medical History: Yes Neurological History: Seizures, Stroke ENT History: Other Cardiac History: Coronary Artery Disease, High Cholesterol, Myocardial Infarction (NM) Respiratory History: COPD Endocrine Medical History: No Pertinent History Musculoskelatal History: Arthritis GI Medical History: No Pertinent History History: Other Pyscho-Social History: Depression Male Reproductive Disorders: No Pertinent History Comment: 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 - Past Surgical History Past Surgical History: Yes Neuro Surgical History: No Pertinent History Cardiac History: Cardiac Catheterization, Cardiac Stent Respiratory Surgery: Lobectomy GI Surgical History: No Pertinent History Genitourinary Surgical Hx: Kidney Surgery, Other Musculskeletal Surgical Hx: No Pertinent History Male Surgical History: No Pertinent History Other Surgical History: right knee surgery - Social History Smoking Status: Former smoker Exposure to second hand smoke: No Alcohol: None Drug Use: none - Physical Exam Vital Signs: Vital Signs - 24 hr Temp Pulse Resp BP BP Pulse Ox 08/22/21 15:00 117 H 20 114/61 98 08/22/21 14:37 121 H 16 97 08/22/21 14:00 100.4 F 121 H 16 130/71 95 08/22/21 13:00 121 H 16 128/71 94 L 08/22/21 12:51 118 H 16 140/77 08/22/21 12:03 99.3 F 123 H 18 155/70 97 08/22/21 12:00 99.6 F 118 H 18 146/79 08/22/21 11:00 121 H 17 143/87 97 08/22/21 10:30 116 H 16 97 08/22/21 09:25 100.4 F 128 H 16 150/81 08/22/21 09:02 100.8 F 129 H 16 147/79 08/22/21 08:51 101.1 F 130 H 16 152/83 97 08/22/21 08:27 102.0 F 134 H 149/78 97 08/22/21 08:00 102.7 F 138 H 16 168/91 08/22/21 07:50 139 H 16 178/95 96 08/22/21 07:40 142 H 16 182/102 93 L 08/22/21 07:30 143 H 16 191/104 08/22/21 07:25 142 H 16 205/108 08/22/21 07:17 139 H 16 97 08/22/21 07:10 141 H 16 211/110 08/22/21 07:03 94 L 08/22/21 06:52 133 H 20 166/93 98 08/22/21 06:36 103.4 F 146 H 46 H 159/99 97 General Appearance: moderate distress Neurologic Exam: other (sedated for ventilator management) Eye Exam: pale conjunctivae Ears, Nose, Throat Exam: normal ENT inspection Neck Exam: normal inspection Respiratory Exam: diminished breath sounds, rhonchi, wheezing Cardiovascular Exam: tachycardia Gastrointestinal/Abdomen Exam: soft Back Exam: normal inspection Extremity Exam: normal inspection Skin Exam: normal color Results - Labs Lab/Micro Results: Lab Results-Last 24 Hours 08/22/21 08/22/21 08/22/21 Range/Units 06:56 06:56 07:00 WBC 16.3 H (4.0-10.5) K/mm3 RBC 4.55 (4.1-5.6) M/mm3 Hgb 8.6 L (12.5-18.0) gm/dl Hct 30.0 L (42-50) % MCV 65.9 L (78-100) fl MCH 18.9 L (26-32) pg MCHC 28.7 L (32-36) g/dl RDW 21.6 H (11.5-14.0) % Plt Count 321 (150-450) K/mm3 MPV 9.9 (7.5-11.0) fl Gran % 65.8 (36.0-66.0) % Eos # (Auto) 0 (0-0.5) Absolute Lymphs (auto) 4.04 (1.0-4.6) Absolute Monos (auto) 1.50 H (0.0-1.3) Lymphocytes % 24.9 (24.0-44.0) % Monocytes % 9.2 (0.0-12.0) % Eosinophils % 0.0 (0.00-5.0) % Basophils % 0.1 (0.0-0.4) % Absolute Granulocytes 10.70 H (1.4-6.9) Basophils # 0.01 (0-0.4) Puncture Site LEFT RADIAL pCO2 57 H (35-45) mmHg pO2 386 H* (75-100) mmHg Base Excess -3.1 L (-2.0-2.0) O2 Saturation 97.4 (94-100) g/dF ABG pH 7.25 L* (7.35-7.45) ABG HCO3 25.0 (22-28) ABG O2 Sat (Measured) 97.4 (95-100) % Elian Test NOT APPLICABLE A-a Gradient 256 a/A Ratio 0.60 Hemoglobin 8.9 Carboxyhemoglobin 0.0 (0.0-6.9) % THgb Methemoglobin 0.0 L (1.4-1.5) % Potassium 3.6 (3.5-5.1) Temperature 37.0 C POC O2 Flow Rate 100 % Vent Mode A/C Vent Rate 16 /MIN Tidal Volume 600 cc PEEP 5 cmH2O Sodium (137-145) mmol/L Chloride (98-107) mmol/L Carbon Dioxide (22-30) mmol/L Anion Gap (5-15) MEQ/L BUN (9-20) mg/dL Creatinine (0.66-1.25) mg/dL Estimated GFR ML/MIN Glucose (74-106) mg/dL Lactic Acid 1.3 (0.4-2.0) Calcium (8.4-10.2) mg/dL Magnesium (1.6-2.3) mg/dL Total Bilirubin (0.2-1.3) mg/dL AST (17-59) U/L ALT (0-50) U/L Alkaline Phosphatase (38-126) U/L Troponin I (0.000-0.034) ng/mL NT-Pro-B Natriuret Pep (0-900) pg/mL Serum Total Protein (6.3-8.2) g/dL Albumin (3.5-5.0) g/dL Urinalys Dipstick Clnc MAIN LAB Urine Color YELLOW (YELLOW) Urine Appearance CLEAR (CLEAR) Urine pH 6.5 (5-6) Ur Specific [place] 1.025 (1.005-1.025) POC Urine Protein Conf >=300 (Negative) Urine Ketones NEGATIVE (NEGATIVE) Urine Nitrite NEGATIVE (NEGATIVE) Urine Bilirubin NEGATIVE (NEGATIVE) Urine Urobilinogen 1 (0-1) mg/dL Urine Leukocytes NEGATIVE (NEGATIVE) Urine WBC (Auto) 6-10 (0-5) /HPF Urine RBC (Auto) 16-25 (0-2) /HPF U Hyaline Cast (Auto) 11-25 (0-2) /LPF U Epithel Cells (Auto) RARE (FEW) /HPF Urine Bacteria (Auto) FEW (NEGATIVE) /HPF Urine RBC MODERATE (0-5) Vickey/ul Urine Mucus (Auto) SLIGHT (NEGATIVE) /HPF Ur Culture Indicated? YES Urine Glucose NEGATIVE (NEGATIVE) mg/dL Phenytoin (10-20) ug/mL Influenza Type A Ag (NEGATIVE) Influenza Type B Ag (NEGATIVE) RSV (PCR) (Negative) SARS-CoV-2 (PCR) (NEGATIVE) Slides for Path Review YES 08/22/21 08/22/21 08/22/21 Range/Units 07:00 07:00 07:59 WBC (4.0-10.5) K/mm3 RBC (4.1-5.6) M/mm3 Hgb (12.5-18.0) gm/dl Hct (42-50) % MCV (78-100) fl MCH (26-32) pg MCHC (32-36) g/dl RDW (11.5-14.0) % Plt Count (150-450) K/mm3 MPV (7.5-11.0) fl Gran % (36.0-66.0) % Eos # (Auto) (0-0.5) Absolute Lymphs (auto) (1.0-4.6) Absolute Monos (auto) (0.0-1.3) Lymphocytes % (24.0-44.0) % Monocytes % (0.0-12.0) % Eosinophils % (0.00-5.0) % Basophils % (0.0-0.4) % Absolute Granulocytes (1.4-6.9) Basophils # (0-0.4) Puncture Site pCO2 (35-45) mmHg pO2 (75-100) mmHg Base Excess (-2.0-2.0) O2 Saturation (94-100) g/dF ABG pH (7.35-7.45) ABG HCO3 (22-28) ABG O2 Sat (Measured) (95-100) % Elian Test A-a Gradient a/A Ratio Hemoglobin Carboxyhemoglobin (0.0-6.9) % THgb Methemoglobin (1.4-1.5) % Potassium 3.6 (3.5-5.1) Temperature C POC O2 Flow Rate % Vent Mode Vent Rate /MIN Tidal Volume cc PEEP cmH2O Sodium 136 L (137-145) mmol/L Chloride 103 (98-107) mmol/L Carbon Dioxide 24 (22-30) mmol/L Anion Gap 12.7 (5-15) MEQ/L BUN 10 (9-20) mg/dL Creatinine 0.73 (0.66-1.25) mg/dL Estimated GFR > 60.0 ML/MIN Glucose 134 H (74-106) mg/dL Lactic Acid (0.4-2.0) Calcium 7.8 L (8.4-10.2) mg/dL Magnesium 1.7 (1.6-2.3) mg/dL Total Bilirubin 0.70 (0.2-1.3) mg/dL AST 68 H (17-59) U/L ALT 17 (0-50) U/L Alkaline Phosphatase 121 (38-126) U/L Troponin I < 0.012 (0.000-0.034) ng/mL NT-Pro-B Natriuret Pep 1340 H (0-900) pg/mL Serum Total Protein 7.9 (6.3-8.2) g/dL Albumin 3.9 (3.5-5.0) g/dL Urinalys Dipstick Clnc Urine Color (YELLOW) Urine Appearance (CLEAR) Urine pH (5-6) Ur Specific [place] (1.005-1.025) POC Urine Protein Conf (Negative) Urine Ketones (NEGATIVE) Urine Nitrite (NEGATIVE) Urine Bilirubin (NEGATIVE) Urine Urobilinogen (0-1) mg/dL Urine Leukocytes (NEGATIVE) Urine WBC (Auto) (0-5) /HPF Urine RBC (Auto) (0-2) /HPF U Hyaline Cast (Auto) (0-2) /LPF U Epithel Cells (Auto) (FEW) /HPF Urine Bacteria (Auto) (NEGATIVE) /HPF Urine RBC (0-5) Vickey/ul Urine Mucus (Auto) (NEGATIVE) /HPF Ur Culture Indicated? Urine Glucose (NEGATIVE) mg/dL Phenytoin (10-20) ug/mL Influenza Type A Ag NEGATIVE (NEGATIVE) Influenza Type B Ag NEGATIVE (NEGATIVE) RSV (PCR) NEGATIVE (Negative) SARS-CoV-2 (PCR) NEGATIVE (NEGATIVE) Slides for Path Review 08/22/21 08/22/21 08/22/21 Range/Units 10:13 13:05 13:30 WBC (4.0-10.5) K/mm3 RBC (4.1-5.6) M/mm3 Hgb (12.5-18.0) gm/dl Hct (42-50) % MCV (78-100) fl MCH (26-32) pg MCHC (32-36) g/dl RDW (11.5-14.0) % Plt Count (150-450) K/mm3 MPV (7.5-11.0) fl Gran % (36.0-66.0) % Eos # (Auto) (0-0.5) Absolute Lymphs (auto) (1.0-4.6) Absolute Monos (auto) (0.0-1.3) Lymphocytes % (24.0-44.0) % Monocytes % (0.0-12.0) % Eosinophils % (0.00-5.0) % Basophils % (0.0-0.4) % Absolute Granulocytes (1.4-6.9) Basophils # (0-0.4) Puncture Site LEFT RADIAL pCO2 62 H* (35-45) mmHg pO2 168 H* (75-100) mmHg Base Excess -4.9 L (-2.0-2.0) O2 Saturation 97.0 (94-100) g/dF ABG pH 7.20 L* (7.35-7.45) ABG HCO3 24.2 (22-28) ABG O2 Sat (Measured) 97.0 (95-100) % Elian Test NOT APPLICABLE A-a Gradient 111 a/A Ratio 0.60 Hemoglobin 8.4 Carboxyhemoglobin 0.0 (0.0-6.9) % THgb Methemoglobin 0.0 L (1.4-1.5) % Potassium 4.0 (3.5-5.1) Temperature 37.0 C POC O2 Flow Rate 50 % Vent Mode A/C Vent Rate /MIN Tidal Volume 600 cc PEEP 5.0 cmH2O Sodium (137-145) mmol/L Chloride (98-107) mmol/L Carbon Dioxide (22-30) mmol/L Anion Gap (5-15) MEQ/L BUN (9-20) mg/dL Creatinine (0.66-1.25) mg/dL Estimated GFR ML/MIN Glucose (74-106) mg/dL Lactic Acid (0.4-2.0) Calcium (8.4-10.2) mg/dL Magnesium (1.6-2.3) mg/dL Total Bilirubin (0.2-1.3) mg/dL AST (17-59) U/L ALT (0-50) U/L Alkaline Phosphatase (38-126) U/L Troponin I 0.018 0.017 (0.000-0.034) ng/mL NT-Pro-B Natriuret Pep (0-900) pg/mL Serum Total Protein (6.3-8.2) g/dL Albumin (3.5-5.0) g/dL Urinalys Dipstick Clnc Urine Color (YELLOW) Urine Appearance (CLEAR) Urine pH (5-6) Ur Specific [place] (1.005-1.025) POC Urine Protein Conf (Negative) Urine Ketones (NEGATIVE) Urine Nitrite (NEGATIVE) Urine Bilirubin (NEGATIVE) Urine Urobilinogen (0-1) mg/dL Urine Leukocytes (NEGATIVE) Urine WBC (Auto) (0-5) /HPF Urine RBC (Auto) (0-2) /HPF U Hyaline Cast (Auto) (0-2) /LPF U Epithel Cells (Auto) (FEW) /HPF Urine Bacteria (Auto) (NEGATIVE) /HPF Urine RBC (0-5) Vickey/ul Urine Mucus (Auto) (NEGATIVE) /HPF Ur Culture Indicated? Urine Glucose (NEGATIVE) mg/dL Phenytoin (10-20) ug/mL Influenza Type A Ag (NEGATIVE) Influenza Type B Ag (NEGATIVE) RSV (PCR) (Negative) SARS-CoV-2 (PCR) (NEGATIVE) Slides for Path Review 08/22/21 Range/Units Unknown WBC (4.0-10.5) K/mm3 RBC (4.1-5.6) M/mm3 Hgb (12.5-18.0) gm/dl Hct (42-50) % MCV (78-100) fl MCH (26-32) pg MCHC (32-36) g/dl RDW (11.5-14.0) % Plt Count (150-450) K/mm3 MPV (7.5-11.0) fl Gran % (36.0-66.0) % Eos # (Auto) (0-0.5) Absolute Lymphs (auto) (1.0-4.6) Absolute Monos (auto) (0.0-1.3) Lymphocytes % (24.0-44.0) % Monocytes % (0.0-12.0) % Eosinophils % (0.00-5.0) % Basophils % (0.0-0.4) % Absolute Granulocytes (1.4-6.9) Basophils # (0-0.4) Puncture Site pCO2 (35-45) mmHg pO2 (75-100) mmHg Base Excess (-2.0-2.0) O2 Saturation (94-100) g/dF ABG pH (7.35-7.45) ABG HCO3 (22-28) ABG O2 Sat (Measured) (95-100) % Elian Test A-a Gradient a/A Ratio Hemoglobin Carboxyhemoglobin (0.0-6.9) % THgb Methemoglobin (1.4-1.5) % Potassium (3.5-5.1) Temperature C POC O2 Flow Rate % Vent Mode Vent Rate /MIN Tidal Volume cc PEEP cmH2O Sodium (137-145) mmol/L Chloride (98-107) mmol/L Carbon Dioxide (22-30) mmol/L Anion Gap (5-15) MEQ/L BUN (9-20) mg/dL Creatinine (0.66-1.25) mg/dL Estimated GFR ML/MIN Glucose (74-106) mg/dL Lactic Acid (0.4-2.0) Calcium (8.4-10.2) mg/dL Magnesium (1.6-2.3) mg/dL Total Bilirubin (0.2-1.3) mg/dL AST (17-59) U/L ALT (0-50) U/L Alkaline Phosphatase (38-126) U/L Troponin I (0.000-0.034) ng/mL NT-Pro-B Natriuret Pep (0-900) pg/mL Serum Total Protein (6.3-8.2) g/dL Albumin (3.5-5.0) g/dL Urinalys Dipstick Clnc Urine Color (YELLOW) Urine Appearance (CLEAR) Urine pH (5-6) Ur Specific [place] (1.005-1.025) POC Urine Protein Conf (Negative) Urine Ketones (NEGATIVE) Urine Nitrite (NEGATIVE) Urine Bilirubin (NEGATIVE) Urine Urobilinogen (0-1) mg/dL Urine Leukocytes (NEGATIVE) Urine WBC (Auto) (0-5) /HPF Urine RBC (Auto) (0-2) /HPF U Hyaline Cast (Auto) (0-2) /LPF U Epithel Cells (Auto) (FEW) /HPF Urine Bacteria (Auto) (NEGATIVE) /HPF Urine RBC (0-5) Vickey/ul Urine Mucus (Auto) (NEGATIVE) /HPF Ur Culture Indicated? Urine Glucose (NEGATIVE) mg/dL Phenytoin < 3.0 L (10-20) ug/mL Influenza Type A Ag (NEGATIVE) Influenza Type B Ag (NEGATIVE) RSV (PCR) (Negative) SARS-CoV-2 (PCR) (NEGATIVE) Slides for Path Review - Radiology Impressions Radiology Exams & Impressions: Radiology Procedures Category Date Time Status CHEST 1 VIEW (PORTABLE) Routine Exams 08/22/21 06:41 Completed - Other Procedures and Tests Respiratory Therapy 08/22/21 07:14 Ventilator Management Q4H 08/22/21 10:30 EKG REPEAT IN AM 08/22/21 10:32 Oxygen High Flow per RT 50% 08/22/21 10:33 Respiratory Therapy Assessment DAILY Assessment/Plan (1) Acute respiratory failure with hypoxia and hypercapnia Current Visit: Yes Status: Acute Code(s): J96.01 - ACUTE RESPIRATORY FAILURE WITH HYPOXIA; J96.02 - ACUTE RESPIRATORY FAILURE WITH HYPERCAPNIA (2) Bilateral pneumonia Current Visit: Yes Status: Acute Qualifiers: Pneumonia type: due to Pneumococcus Lung location: lower lobe of lung Qualified Code(s): J13 - Pneumonia due to Streptococcus pneumoniae Assessment & Plan: Chief Complaint Diagnosis Pneumonia, resp failure Allergies Allergy/AdvReac Type Severity Reaction Status Date / Time codeine Allergy Severe stop Verified 08/22/21 07:29 breathing hydrocodone Allergy Severe stop Verified 08/22/21 07:29 breathing morphine Allergy Severe stop Verified 08/22/21 07:29 breathing Penicillins Allergy Verified 08/22/21 07:29 Vital Signs (Last 24 hours) Temp Pulse Resp BP BP Pulse Ox 08/22/21 15:00 117 H 20 114/61 98 08/22/21 14:37 121 H 16 97 08/22/21 14:00 100.4 F 121 H 16 130/71 95 08/22/21 13:00 121 H 16 128/71 94 L 08/22/21 12:51 118 H 16 140/77 08/22/21 12:03 99.3 F 123 H 18 155/70 97 08/22/21 12:00 99.6 F 118 H 18 146/79 08/22/21 11:00 121 H 17 143/87 97 08/22/21 10:30 116 H 16 97 08/22/21 09:25 100.4 F 128 H 16 150/81 08/22/21 09:02 100.8 F 129 H 16 147/79 08/22/21 08:51 101.1 F 130 H 16 152/83 97 08/22/21 08:27 102.0 F 134 H 149/78 97 08/22/21 08:00 102.7 F 138 H 16 168/91 08/22/21 07:50 139 H 16 178/95 96 08/22/21 07:40 142 H 16 182/102 93 L 08/22/21 07:30 143 H 16 191/104 08/22/21 07:25 142 H 16 205/108 08/22/21 07:17 139 H 16 97 08/22/21 07:10 141 H 16 211/110 08/22/21 07:03 94 L 08/22/21 06:52 133 H 20 166/93 98 08/22/21 06:36 103.4 F 146 H 46 H 159/99 97 Home Medications Medication Instructions Recorded Confirmed Last Taken Type Albuterol Sulfate [Proair Hfa] 1 inh PO Q46H 08/22/21 08/22/21 Unknown History Aspirin EC 81 mg [Ecotrin 81 81 mg PO DAILY 08/22/21 08/22/21 Unknown History mg] Buspirone HCl 5 mg [Buspar 5 10 mg PO BID 08/22/21 08/22/21 Unknown History mg] Furosemide 40 mg [Lasix 40 40 mg PO DAILY 08/22/21 08/22/21 Unknown History MG] Mirtazapine 30 mg [Remeron 30 30 mg PO HS 08/22/21 08/22/21 Unknown History mg] Pramipexole Di-HCl [Pramipexole 1 mg PO BID 08/22/21 08/22/21 Unknown History Dihydrochloride] Sertraline HCl [Zoloft] 100 mg PO DAILY 08/22/21 08/22/21 Unknown History Current Medications Generic Name Dose Route Start Last Admin Trade Name Freq PRN Reason Stop Dose Admin Acetaminophen 650 mg 08/22/21 10:30 08/22/21 13:53 Acetaminophen 650 Mg Supp.Rect VT 09/21/21 10:29 650 mg Q4H PRN PRN Administration PAIN AND/OR FEVER Albuterol/Ipratropium 3 ml 08/22/21 11:00 08/22/21 14:33 Ipratropium/Albuterol Sulfate 3 Ml Ampul.Neb IH 09/21/21 10:59 3 ml Q4HRT JAY Administration Amitriptyline HCl 25 mg 08/22/21 22:00 Amitriptyline Hcl 25 Mg Tablet PO 09/21/21 21:59 BID JAY Amitriptyline HCl 50 mg 08/22/21 22:00 Amitriptyline Hcl 50 Mg Tablet PO 09/21/21 21:59 BID JAY Amlodipine Besylate 10 mg 08/23/21 10:00 Amlodipine Besylate 5 Mg Tablet PO 09/22/21 09:59 DAILY JAY Aspirin 81 mg 08/23/21 10:00 Aspirin 81 Mg Tablet.Ec PO 09/22/21 09:59 DAILY JAY Buspirone HCl 10 mg 08/22/21 22:00 Buspirone Hcl 5 Mg Tablet PO 09/21/21 21:59 BID JAY Enoxaparin Sodium 40 mg 08/22/21 10:30 08/22/21 13:34 Enoxaparin Sodium 40 Mg/0.4 Ml Syringe SQ 09/21/21 10:29 40 mg DAILY JAY Administration Furosemide 40 mg 08/23/21 10:00 Furosemide 40 Mg Tablet PO 09/22/21 09:59 DAILY JAY Gabapentin 300 mg 08/22/21 22:00 Gabapentin 300 Mg Capsule PO 09/21/21 21:59 TID JAY Propofol 100 mls @ 10.08 mls/hr 08/22/21 07:25 08/22/21 11:36 Propofol 1000 Mg/100 Ml Bottle IV 09/21/21 07:24 15 mcg/kg/min .Q9H56M PRN 10.08 mls/hr SEDATION FOR VENT Administration Protocol 15 MCG/KG/MIN Sodium Chloride 1,000 mls @ 50 mls/hr 08/22/21 10:30 Sodium Chloride 0.9% 1000 Ml IV 09/21/21 10:29 .Q20H JAY Levofloxacin/Dextrose 500 mg in 100 mls @ 100 mls/hr 08/22/21 10:30 08/22/21 13:37 Levofloxacin 500mg/100ml D5w IV 09/21/21 10:29 100 mls/hr Q24H10 JAY Administration Cisatracurium Besylate 200 mg/ 200 mls @ 20.16 mls/hr 08/22/21 13:00 08/22/21 12:51 Dextrose IV 09/21/21 12:59 2.29 mcg/kg/min .Q9H56M PRN 15.4 mls/hr PARALYSIS Administration Protocol 3 MCG/KG/MIN Aztreonam 1 gm/ Sodium 100 mls @ 200 mls/hr 08/22/21 13:00 08/22/21 14:00 Chloride IV 08/25/21 12:59 200 mls/hr Q6HT JAY Administration Metoprolol Succinate 100 mg 08/23/21 10:00 Metoprolol Succinate 100 Mg Tablet.Sa PO 09/22/21 09:59 DAILY JAY Mirtazapine 30 mg 08/22/21 22:00 Mirtazapine 30 Mg Tablet PO 09/21/21 21:59 HS [facility], 1928–1983 Miscellaneous Information 1 each 08/22/21 13:45 Medication Intervention 1 Each Each 09/21/21 13:44 .RN TO CHECK JAY Ondansetron HCl 4 mg 08/22/21 10:30 Ondansetron Hcl 4 Mg/2 Ml Vial IV 09/21/21 10:29 Q6H PRN PRN NAUSEA/VOMITING Pantoprazole Sodium 40 mg 08/22/21 10:30 08/22/21 13:34 Pantoprazole 40 Mg Vial IV 09/21/21 10:29 40 mg Q24H JAY Administration Phenytoin Sodium 300 mg 08/23/21 08:00 Phenytoin Sodium Extended 100 Mg Capsule PO 09/22/21 07:59 BREAKFAST JAY Phenytoin Sodium 100 mg 08/23/21 12:00 Phenytoin Sodium Extended 100 Mg Capsule PO 09/22/21 11:59 NOON JAY Phenytoin Sodium 200 mg 08/22/21 22:00 Phenytoin Sodium Extended 100 Mg Capsule PO 09/21/21 21:59 QPM [facility], 1928–1983 Pramipexole Dihydrochloride 1 mg 08/22/21 22:00 Pramipexole Di-Hcl 0.5 Mg Tab PO 09/21/21 21:59 BID JAY Sertraline HCl 100 mg 08/23/21 10:00 Sertraline Hcl 50 Mg Tab PO 09/22/21 09:59 DAILY [facility], [facility]–1983 Discontinued Medications Generic Name Dose Route Start Last Admin Trade Name Freq PRN Reason Stop Dose Admin Acetaminophen Confirm 08/22/21 07:05 Acetaminophen 325mg Suppository Administered 08/22/21 07:06 Dose 650 mg .ROUTE .STK-MED ONE Acetaminophen 650 mg 08/22/21 08:04 08/22/21 07:09 Acetaminophen 325mg Suppository VT 08/22/21 08:05 650 mg STAT STA Administration Albuterol Sulfate 2 puff 08/22/21 15:00 Albuterol Common Canister Inhaler IH 09/21/21 14:59 Q4HRT [facility], [facility]–1983 Albuterol/Ipratropium Confirm 08/22/21 10:05 Ipratropium/Albuterol Sulfate 3 Ml Ampul.Neb Administered 08/22/21 10:06 Dose 3 ml IH .STK-MED ONE Cisatracurium Besylate 10 mg 08/22/21 13:00 08/22/21 12:50 Cisatracurium 20 Mg/10 Ml Vial IV 08/22/21 13:01 10 mg ONCE ONE Administration Etomidate 20 mg 08/22/21 07:00 08/22/21 06:46 Etomidate 20 Mg/10 Ml Amp IV 08/22/21 07:01 20 mg STAT STA Administration Fenofibrate 145 mg 08/23/21 10:00 Fenofibrate,Micronized 145 Mg Tablet PO 09/22/21 09:59 DAILY JAY Fentanyl Citrate 100 mcg 08/22/21 08:02 08/22/21 08:04 Fentanyl Citrate 100 Mcg/2 Ml* Vial IV 08/22/21 08:03 100 mcg STAT ONE Administration Fentanyl Citrate Confirm 08/22/21 08:03 Fentanyl Citrate 100 Mcg/2 Ml* Vial Administered 08/22/21 08:04 Dose 100 mcg .ROUTE .STK-MED ONE Levofloxacin/Dextrose 750 mg in 150 mls @ 100 mls/hr 08/22/21 06:57 08/22/21 07:30 Levofloxacin 750mg/150ml D5w IV 08/22/21 08:26 100 ml/hr STAT STA 100 mls/hr Administration Aztreonam 2 gm/ Sodium 100 mls @ 200 mls/hr 08/22/21 06:58 08/22/21 08:47 Chloride IV 08/22/21 07:27 200 mls/hr STAT ONE Administration Rocuronium Walker 100 mg/ 100 mls @ 33.6 mls/hr 08/22/21 07:25 08/22/21 07:14 Sodium Chloride IV 08/22/21 13:00 5 mcg/kg/min .[id number] PRN 33.6 mls/hr PARALYSIS FOR VENT Administration Protocol 5 MCG/KG/MIN Levofloxacin/Dextrose Confirm 08/22/21 07:29 Levofloxacin 750mg/150ml D5w Administered 08/22/21 07:30 Dose 750 mg in 150 mls @ ud IV .STK-MED ONE Sodium Chloride 1,000 mls @ 50 mls/hr 08/22/21 08:15 08/22/21 06:41 Sodium Chloride 0.9% 1000 Ml IV 09/21/21 08:14 50 mls/hr .Q20H JAY Administration Sodium Chloride 1,000 mls @ 250 mls/hr 08/22/21 08:15 08/22/21 08:11 Sodium Chloride 0.9% 1000 Ml IV 09/21/21 08:14 250 mls/hr .Q4H JAY Administration Aztreonam 1 gm/ Sodium 100 mls @ 200 mls/hr 08/22/21 12:00 Chloride IV 08/25/21 11:59 Q6HT [facility], [facility]1983 Non-Formulary Medication 1 each 08/22/21 10:46 08/22/21 15:14 Pharmacy Dosing Request 08/22/21 10:47 1 each STAT ONE Administration Non-Formulary Medication 75 mg 08/22/21 22:00 Amitriptyline Hcl [Amitriptyline Hcl] PO 09/21/21 21:59 BID [facility], [facility]–1983 Phenytoin Sodium 600 mg 08/22/21 13:30 Phenytoin Sodium Extended 100 Mg Capsule PO 09/21/21 13:29 UD [facility]–1983 Propofol 150 mg 08/22/21 07:00 08/22/21 06:54 Propofol 10 Mg/Ml 20ml Vial IV 08/22/21 07:01 150 mg STAT STA Administration Rocuronium Walker 100 mg 08/22/21 07:25 08/22/21 06:56 Rocuronium Walker 100 Mg/10ml Vial IV 08/22/21 07:26 100 mg STAT STA Administration Succinylcholine Chloride 150 mg 08/22/21 06:50 08/22/21 06:46 Succinylcholine Chloride 200mg/10 Ml Vial IV 08/22/21 06:51 150 mg STAT STA Administration Intake & Output (Last 24 hours) 08/20/21 08/21/21 08/22/21 08/23/21 11:59 11:59 11:59 11:59 Intake Total 1300 Output Total 425 Balance 875 Weight 112 kg 125 kg Microbiology Results (Last 24 hours) 08/22/21 06:56 Clean Catch Midstream Urine Culture - Pending 08/22/21 07:07 Blood Blood Culture Gram Stain - Pending 08/22/21 07:07 Blood Blood Culture - Pending 08/22/21 07:00 Blood Blood Culture Gram Stain - Pending 08/22/21 07:00 Blood Blood Culture - Pending Laboratory Results (Last 24 hours) 08/22/21 08/22/21 08/22/21 Unknown 13:30 13:05 WBC RBC Hgb Hct MCV MCH MCHC RDW Plt Count MPV Gran % Eos # (Auto) Absolute Lymphs (auto) Absolute Monos (auto) Lymphocytes % Monocytes % Eosinophils % Basophils % Absolute Granulocytes Basophils # Puncture Site LEFT RADIAL pCO2 62 H* pO2 168 H* Base Excess -4.9 L O2 Saturation 97.0 ABG pH 7.20 L* ABG HCO3 24.2 ABG O2 Sat (Measured) 97.0 Elian Test NOT APPLICABLE A-a Gradient 111 a/A Ratio 0.60 Hemoglobin 8.4 Carboxyhemoglobin 0.0 Methemoglobin 0.0 L Potassium 4.0 Temperature 37.0 POC O2 Flow Rate 50 Vent Mode A/C Vent Rate Tidal Volume 600 PEEP 5.0 Sodium Chloride Carbon Dioxide Anion Gap BUN Creatinine Estimated GFR Glucose Lactic Acid Calcium Magnesium Total Bilirubin AST ALT Alkaline Phosphatase Troponin I 0.017 NT-Pro-B Natriuret Pep Serum Total Protein Albumin Urinalys Dipstick Clnc Urine Color Urine Appearance Urine pH Ur Specific [place] POC Urine Protein Conf Urine Ketones Urine Nitrite Urine Bilirubin Urine Urobilinogen Urine Leukocytes Urine WBC (Auto) Urine RBC (Auto) U Hyaline Cast (Auto) U Epithel Cells (Auto) Urine Bacteria (Auto) Urine RBC Urine Mucus (Auto) Ur Culture Indicated? Urine Glucose Phenytoin < 3.0 L Influenza Type A Ag Influenza Type B Ag RSV (PCR) SARS-CoV-2 (PCR) Slides for Path Review 08/22/21 08/22/21 08/22/21 10:13 07:59 07:00 WBC RBC Hgb Hct MCV MCH MCHC RDW Plt Count MPV Gran % Eos # (Auto) Absolute Lymphs (auto) Absolute Monos (auto) Lymphocytes % Monocytes % Eosinophils % Basophils % Absolute Granulocytes Basophils # Puncture Site pCO2 pO2 Base Excess O2 Saturation ABG pH ABG HCO3 ABG O2 Sat (Measured) Elian Test A-a Gradient a/A Ratio Hemoglobin Carboxyhemoglobin Methemoglobin Potassium Temperature POC O2 Flow Rate Vent Mode Vent Rate Tidal Volume PEEP Sodium Chloride Carbon Dioxide Anion Gap BUN Creatinine Estimated GFR Glucose Lactic Acid Calcium Magnesium Total Bilirubin AST ALT Alkaline Phosphatase Troponin I 0.018 < 0.012 NT-Pro-B Natriuret Pep Serum Total Protein Albumin Urinalys Dipstick Clnc Urine Color Urine Appearance Urine pH Ur Specific [place] POC Urine Protein Conf Urine Ketones Urine Nitrite Urine Bilirubin Urine Urobilinogen Urine Leukocytes Urine WBC (Auto) Urine RBC (Auto) U Hyaline Cast (Auto) U Epithel Cells (Auto) Urine Bacteria (Auto) Urine RBC Urine Mucus (Auto) Ur Culture Indicated? Urine Glucose Phenytoin Influenza Type A Ag NEGATIVE Influenza Type B Ag NEGATIVE RSV (PCR) NEGATIVE SARS-CoV-2 (PCR) NEGATIVE Slides for Path Review 08/22/21 08/22/21 08/22/21 07:00 07:00 06:56 WBC 16.3 H RBC 4.55 Hgb 8.6 L Hct 30.0 L MCV 65.9 L MCH 18.9 L MCHC 28.7 L RDW 21.6 H Plt Count 321 MPV 9.9 Gran % 65.8 Eos # (Auto) 0 Absolute Lymphs (auto) 4.04 Absolute Monos (auto) 1.50 H Lymphocytes % 24.9 Monocytes % 9.2 Eosinophils % 0.0 Basophils % 0.1 Absolute Granulocytes 10.70 H Basophils # 0.01 Puncture Site LEFT RADIAL pCO2 57 H pO2 386 H* Base Excess -3.1 L O2 Saturation 97.4 ABG pH 7.25 L* ABG HCO3 25.0 ABG O2 Sat (Measured) 97.4 Elian Test NOT APPLICABLE A-a Gradient 256 a/A Ratio 0.60 Hemoglobin 8.9 Carboxyhemoglobin 0.0 Methemoglobin 0.0 L Potassium 3.6 3.6 Temperature 37.0 POC O2 Flow Rate 100 Vent Mode A/C Vent Rate 16 Tidal Volume 600 PEEP 5 Sodium 136 L Chloride 103 Carbon Dioxide 24 Anion Gap 12.7 BUN 10 Creatinine 0.73 Estimated GFR > 60.0 Glucose 134 H Lactic Acid 1.3 Calcium 7.8 L Magnesium 1.7 Total Bilirubin 0.70 AST 68 H ALT 17 Alkaline Phosphatase 121 Troponin I NT-Pro-B Natriuret Pep 1340 H Serum Total Protein 7.9 Albumin 3.9 Urinalys Dipstick Clnc Urine Color Urine Appearance Urine pH Ur Specific [place] POC Urine Protein Conf Urine Ketones Urine Nitrite Urine Bilirubin Urine Urobilinogen Urine Leukocytes Urine WBC (Auto) Urine RBC (Auto) U Hyaline Cast (Auto) U Epithel Cells (Auto) Urine Bacteria (Auto) Urine RBC Urine Mucus (Auto) Ur Culture Indicated? Urine Glucose Phenytoin Influenza Type A Ag Influenza Type B Ag RSV (PCR) SARS-CoV-2 (PCR) Slides for Path Review YES 08/22/21 06:56 WBC RBC Hgb Hct MCV MCH MCHC RDW Plt Count MPV Gran % Eos # (Auto) Absolute Lymphs (auto) Absolute Monos (auto) Lymphocytes % Monocytes % Eosinophils % Basophils % Absolute Granulocytes Basophils # Puncture Site pCO2 pO2 Base Excess O2 Saturation ABG pH ABG HCO3 ABG O2 Sat (Measured) Elian Test A-a Gradient a/A Ratio Hemoglobin Carboxyhemoglobin Methemoglobin Potassium Temperature POC O2 Flow Rate Vent Mode Vent Rate Tidal Volume PEEP Sodium Chloride Carbon Dioxide Anion Gap BUN Creatinine Estimated GFR Glucose Lactic Acid Calcium Magnesium Total Bilirubin AST ALT Alkaline Phosphatase Troponin I NT-Pro-B Natriuret Pep Serum Total Protein Albumin Urinalys Dipstick Clnc MAIN LAB Urine Color YELLOW Urine Appearance CLEAR Urine pH 6.5 Ur Specific [place] 1.025 POC Urine Protein Conf >=300 Urine Ketones NEGATIVE Urine Nitrite NEGATIVE Urine Bilirubin NEGATIVE Urine Urobilinogen 1 Urine Leukocytes NEGATIVE Urine WBC (Auto) 6-10 Urine RBC (Auto) 16-25 U Hyaline Cast (Auto) 11-25 U Epithel Cells (Auto) RARE Urine Bacteria (Auto) FEW Urine RBC MODERATE Urine Mucus (Auto) SLIGHT Ur Culture Indicated? YES Urine Glucose NEGATIVE Phenytoin Influenza Type A Ag Influenza Type B Ag RSV (PCR) SARS-CoV-2 (PCR) Slides for Path Review Orders (Last 24 hours) Category Date Time Status Bedrest TOLERATED Activity 08/22/21 10:30 Active Admit as Inpatient ROUTINE Care 08/22/21 10:30 Active Test Preparation Tutor STAT Care 08/22/21 06:57 Completed Code Status Order ROUTINE Care 08/22/21 10:30 Active EKG-ER Only STAT Care 08/22/21 06:56 Completed Puga [Catheter-Rankin Puga] STAT Care 08/22/21 10:30 Completed IV Insertion STAT Care 08/22/21 06:56 Completed Consult Pulmonology ROUTINE Cons 08/22/21 11:39 Active NPO Diet 08/22/21 10:31 Active CHEST 1 VIEW (PORTABLE) Routine Exams 08/22/21 06:41 Completed ABG [ARTERIAL BLOOD GASES] DAILY Lab 08/23/21 05:00 Ordered ABG [ARTERIAL BLOOD GASES] DAILY Lab 08/24/21 05:00 Ordered ABG [ARTERIAL BLOOD GASES] DAILY Lab 08/25/21 05:00 Ordered ABG [ARTERIAL BLOOD GASES] DAILY Lab 08/26/21 05:00 Ordered ABG [ARTERIAL BLOOD GASES] DAILY Lab 08/27/21 05:00 Ordered ABG [ARTERIAL BLOOD GASES] Routine Lab 08/22/21 13:05 Completed ARTERIAL BLOOD GASES Stat Lab 08/22/21 06:56 Completed BLOOD CULTURE Stat Lab 08/22/21 07:07 Received CBC W DIFF AM.LAB Lab 08/23/21 04:00 Ordered CBC W DIFF Stat Lab 08/22/21 07:00 Completed CMP AM.LAB Lab 08/23/21 04:00 Ordered CMP Stat Lab 08/22/21 07:00 Completed CULTURE,URINE Stat Lab 08/22/21 06:56 Received Dilantin(Phenytoin) Stat Lab 08/22/21 Completed Lactic Acid Stat Lab 08/22/21 06:56 Completed MAGNESIUM Stat Lab 08/22/21 07:00 Completed NT PRO BNP AM.LAB Lab 08/23/21 04:00 Ordered NT PRO BNP Stat Lab 08/22/21 07:00 Completed TROPONIN Q3H Lab 08/22/21 07:00 Completed TROPONIN Q3H Lab 08/22/21 10:13 Completed TROPONIN Q3H Lab 08/22/21 13:30 Completed TROPONIN Q3H Lab 08/22/21 16:00 Ordered TROPONIN Q3H Lab 08/22/21 19:00 Ordered AMITRIPTYLINE HCL 50 mg Tab [AMITRIPTYLINE HCL 50 mg Med 08/22/21 22:00 Active Tablet] 50 mg PO BID Acetaminophen 325Mg [Feverall 325 mg] Med 08/22/21 07:05 Discontinued 650 mg .ROUTE .STK-MED ONE Acetaminophen 325Mg [Feverall 325 mg] Med 08/22/21 08:04 Discontinued 650 mg VT STAT STA Acetaminophen 650 mg [Feverall 650 mg] Med 08/22/21 10:30 Active 650 mg VT Q4H PRN PRN Albuterol Common Canister [Ventolin Common Canister* Med 08/22/21 15:00 Discontinued ] 2 puff IH Q4HRT Albuterol/Ipratropium 3ml Neb* [DUONEB 0.5-3 MG/3 ml Med 08/22/21 10:05 Discontinued Neb] 3 ml IH .STK-MED ONE Albuterol/Ipratropium 3ml Neb* [DUONEB 0.5-3 MG/3 ml Med 08/22/21 11:00 Active Neb] 3 ml IH Q4HRT Amitriptyline HCl 25 mg [Amitriptyline 25 mg Tablet] Med 08/22/21 22:00 Active 25 mg PO BID Amitriptyline HCl [Amitriptyline HCl] Med 08/22/21 22:00 Discontinued 75 mg PO BID Amlodipine Besylate 5 mg [Norvasc 5 mg] Med 08/23/21 10:00 Active 10 mg PO DAILY Aspirin EC 81 mg [Ecotrin 81 mg] Med 08/23/21 10:00 Active 81 mg PO DAILY Aztreonam 1 gm [Azactam 1 gm] 1 gm Med 08/22/21 12:00 Discontinued NaCl 0.9% 100 ml Mini-Bag Plus [Sodium Chloride 100ML MINI-BAG PLUS] 100 ml IV Q6HT Aztreonam 1 gm [Azactam 1 gm] 1 gm Med 08/22/21 13:00 Active NaCl 0.9% 100 ml Mini-Bag Plus [Sodium Chloride 100ML MINI-BAG PLUS] 100 ml IV Q6HT Aztreonam 1 gm [Azactam 1 gm] 2 gm Med 08/22/21 06:58 Discontinued NaCl 0.9% 100Ml [Sodium Chloride 0.9% 100 ML BAG] 100 ml IV STAT Buspirone HCl 5 mg [Buspar 5 mg] Med 08/22/21 22:00 Active 10 mg PO BID Cisatracurium 20 mg/10 ml [Nimbex 20MG/10 Ml Vial ( Med 08/22/21 13:00 Discontinued HIGH RISK MED)] 10 mg IV ONCE ONE D5w 250 ml [Dextrose 5%/Water IV Soln. 250 ML] 180 ml Med 08/22/21 13:00 Active Cisatracurium 200 mg/20 ml [Nimbex 200MG/20 Ml MDV ( HIGH RISK MED)] 200 mg IV 3 mcg/kg/min Enoxaparin Sodium [Enoxaparin Sodium] Med 08/22/21 10:30 Active 40 mg SQ DAILY Etomidate 20 mg/10 ml [Amidate 20 MG/10 ML] Med 08/22/21 07:00 Discontinued 20 mg IV STAT STA Fenofibrate,Micronized 145 mg* [Tricor 145 MG] Med 08/23/21 10:00 Discontinued 145 mg PO DAILY Fentanyl Citrate 100 Mcg/2 ml* [Sublimaze 100 Mcg/2 ml* Med 08/22/21 08:03 Discontinued ] 100 mcg .ROUTE .STK-MED ONE Fentanyl Citrate 100 Mcg/2 ml* [Sublimaze 100 Mcg/2 ml* Med 08/22/21 08:02 Discontinued ] 100 mcg IV STAT ONE Furosemide 40 mg [Lasix 40 MG] Med 08/23/21 10:00 Active 40 mg PO DAILY Gabapentin 300 mg [Neurontin 300 mg] Med 08/22/21 22:00 Active 300 mg PO TID Levofloxacin [Levofloxacin 500MG/100ML D5W] Med 08/22/21 10:30 Active 500 mg in 100 ml IV Q24H10 Levofloxacin [Levofloxacin 750Mg/150Ml D5w] Med 08/22/21 06:57 Discontinued 750 mg in 150 ml IV STAT Levofloxacin [Levofloxacin 750Mg/150Ml D5w] Med 08/22/21 07:29 Discontinued 750 mg in 150 ml IV UD Medication Intervention Med 08/22/21 13:45 Active 1 each MC .RN TO CHECK Metoprolol Succinate 100 mg [Toprol Xl 100 MG] Med 08/23/21 10:00 Active 100 mg PO DAILY Mirtazapine 30 mg [Remeron 30 mg] Med 08/22/21 22:00 Active 30 mg PO HS NaCl 0.9% 1000 ml [Sodium Chloride 0.9% 1000 ML] 1,000 Med 08/22/21 08:15 Discontinued ml IV 250 mls/hr NaCl 0.9% 1000 ml [Sodium Chloride 0.9% 1000 ML] 1,000 Med 08/22/21 08:15 Discontinued ml IV 50 mls/hr NaCl 0.9% 1000 ml [Sodium Chloride 0.9% 1000 ML] 1,000 Med 08/22/21 10:30 Active ml IV 50 mls/hr NaCl 0.9% 100Ml [Sodium Chloride 0.9% 100 ML BAG] 90 ml Med 08/22/21 07:25 Discontinued Rocuronium Walker 100 mg/10Ml [Zemuron 100 MG/10 ML] 100 mg IV 5 mcg/kg/min Ondansetron HCl 4 mg/2 ml [Zofran 4 MG/2 ML VIAL] Med 08/22/21 10:30 Active 4 mg IV Q6H PRN PRN Pantoprazole 40 mg [Protonix 40 mg IV] Med 08/22/21 10:30 Active 40 mg IV Q24H Pharmacy Dosing Request Med 08/22/21 10:46 Discontinued 1 each MC STAT ONE Phenytoin Sod Extended 100 mg* [Dilantin 100 MG] Med 08/23/21 12:00 Active 100 mg PO NOON Phenytoin Sod Extended 100 mg* [Dilantin 100 MG] Med 08/22/21 22:00 Active 200 mg PO QPM Phenytoin Sod Extended 100 mg* [Dilantin 100 MG] Med 08/23/21 08:00 Active 300 mg PO BREAKFAST Phenytoin Sod Extended 100 mg* [Dilantin 100 MG] Med 08/22/21 13:30 Discontinued 600 mg PO UD Pramipexole Di-HCl 0.5 mg [Mirapex 0.5 MG Tablet] Med 08/22/21 22:00 Active 1 mg PO BID Propofol 100Ml [Propofol 1000 mg/100 ml Bottle] 100 ml Med 08/22/21 07:25 Active IV 15 mcg/kg/min Propofol 200 mg/20 ml [Diprivan 200 mg/20 ml] Med 08/22/21 07:00 Discontinued 150 mg IV STAT STA Rocuronium Walker 100 mg/10Ml [Zemuron 100 MG/10 ML] Med 08/22/21 07:25 Discontinued 100 mg IV STAT STA Sertraline HCl 50 mg [Zoloft 50 mg Tablet] Med 08/23/21 10:00 Active 100 mg PO DAILY Succinylcholine Chloride 200Mg [Quelicin Fliptop 200 MG Med 08/22/21 06:50 Discontinued /10 ML] 150 mg IV STAT STA EKG REPEAT IN AM RT 08/22/21 10:30 Active Intubate Patient STAT RT 08/22/21 07:14 Completed Oxygen High Flow per RT 50% RT 08/22/21 10:32 Active Pulse Oximetry .continuos RT 04/11/22 10:30 Active Respiratory Therapy Assessment DAILY RT 08/22/21 10:33 Active Respiratory Therapy Consult ROUTINE RT 08/22/21 10:30 Completed Ventilator Management Q4H RT 08/22/21 07:14 Active Transfer Order Routine Transfer 08/22/21 Completed Patient Care Notes (Last 24 hours) 08/22/21 16:22 Nursing Note by Demi East 08-22-[address] PULIDO ROUNDED ON PATIENT AND MADE MEDICATION CHANGES TAKEN TO PHARMACY. NURSE KIRSTIN ROUNDED WITH HIM. ANA MARIA Initialized on 08/22/21 16:22 - END OF NOTE 08/22/21 14:48 Respiratory Note by Jenny Hernandez 08/22 LATE ENTRY AT 730AM THIS AM I CALLED [facility] AND INFORMED THE NURSE THAT PATIENT WAS INTUBATED. I DOCUMENTED THE REFERENCE NUMBER ON FORM AND GAVE TO THE ER NURSE. PARVIZ Initialized on 08/22/21 14:48 - END OF NOTE 08/22/21 14:46 Respiratory Note by Jenny Hernandez i CALLED DR ALTMAN AND GAVE HIM PATIENT ABG, LAB, XRAY, SEDATION, AND ANTIBODICS AND INFORMATION ON WHY HE WAS ADMITTED. hE REQUESTED VENT BE INCREASED TO 20 AND TO LET HIM KNOW IF ANY QUESTIONS. PARVIZ Initialized on 08/22/21 14:46 - END OF NOTE 08/22/21 11:46 Nursing Note by Demi East 08-22-21 CALLED AND SPOKE TO RESHMA AT DR ALTMAN OFFICE. HE WILL ROUND THIS AFTERNOON. NURSE MÓNICA NOTIFIED 1145AM ANA MARIA Initialized on 08/22/21 11:46 - END OF NOTE Code(s): J18.9 - PNEUMONIA, UNSPECIFIED ORGANISM
[2021-08-22] MEDS: FENTANYL 500 MCG/10 ML VIAL 1,500 MCG in Sodium Chloride 0.9% 150 ML 120 ML IV PRN (17:28)
[2021-08-22] MEDS: Sodium Chloride 0.9% 1000 ML 1,000 ML IV SCH (18:16)
[2021-08-22] MEDS: Dilantin 100 MG PO SCH (21:59)
[2021-08-22] MEDS: BUSPAR 5 MG PO SCH (21:59)
[2021-08-22] MEDS: NEURONTIN 300 MG PO SCH (22:00)
[2021-08-22] MEDS ORDERED: AMITRIPTYLINE HCL 75 MG PO SCH (22:00)
[2021-08-22] MEDS: REMERON 30 MG PO SCH (22:00)
[2021-08-22] MEDS ORDERED: NON-FORMULARY ITEM (Pramipexole Di-Hcl [Pramipexole Dihydrochloride] 1 MG Tablet) PO SCH (22:00)
[2021-08-22] MEDS: AMITRIPTYLINE 25 MG TABLET PO SCH (22:01)
[2021-08-22] MEDS: Mirapex 0.5 MG Tablet PO SCH (22:01)
[2021-08-23] MEDS: AZACTAM 1 GM*** 1 GM in Sodium Chloride 100ML MINI-BAG PLUS 100 ML IV SCH ×4 (00:10→17:53)
[2021-08-23] MEDS: Propofol 1000 mg/100 ml Bottle 100 ML IV PRN ×8 (00:13→21:05)
[2021-08-23] MEDS: Nimbex 200MG/20 Ml MDV (HIGH RISK MED)** 200 MG in Dextrose 5%/Water IV Soln. 250 ML 18... IV PRN ×2 (03:02→17:13)
[2021-08-23] MEDS: FEVERALL 650 MG PR PRN ×3 (03:03→12:59)
[2021-08-23] MEDS: DUONEB 0.5-3 MG/3 ml Neb IH SCH ×6 (03:20→23:20)
[2021-08-23 05:28] LABS: Absolute Neutrophil Ct (ANC) 7.87 (1.4-6.9); Basophil (Absolute #) 0 (0-0.4); Eosinophil (Absolute #) 0 (0-0.5); Hematocrit 27.3 % (42-50); Hemoglobin 7.5 gm/dl (12.5-18.0); Lymphocyte (Absolute #) 1.34 (1.0-4.6); Mean Cell Volume 68.4 fl (78-100); Mean Corpuscular Hemoglobin 18.8 pg (26-32); Mean Corpuscular Hgb Concent. 27.5 g/dl (32-36); Mean Platelet Volume 9.3 fl (7.5-11.0); Monocyte (Absolute #) 1.06 (0.0-1.3); Monocytes % 10.3 % (0.0-12.0); Neutrophil % 76.7 % (36.0-66.0); Platelet Count 252 K/mm3 (150-450); Red Blood Count 3.99 M/mm3 (4.1-5.6); Red Cell Distribution Width 21.7 % (11.5-14.0); White Blood Count 10.3 K/mm3 (4.0-10.5)
[2021-08-23 05:40] LABS: Potassium 3.4 mmol/L (3.5-5.1)
[2021-08-23 05:43] LABS: ALBUMIN 3.1 g/dL (3.5-5.0); ALKALINE PHOSPHATASE 81 U/L (38-126); BLOOD UREA NITROGEN 11 mg/dL (9-20); CHLORIDE 103 mmol/L (98-107); Carbon Dioxide 23 mmol/L (22-30); Creatinine 1 0.58 mg/dL (0.66-1.25); EST GLOMERULAR FILTRATION RATE > 60.0 ML/MIN; Glucose 99 mg/dL (74-106); NT PRO BNP 1110 pg/mL (0-900); SGOT/AST 35 U/L (17-59); SGPT/ALT 12 U/L (0-50); SODIUM 135 mmol/L (137-145); Total Protein 6.6 g/dL (6.3-8.2)
[2021-08-23 05:46] LABS: ANION GAP 12.4 MEQ/L (5-15)
[2021-08-23 05:51] LABS: A-aADO2 126; ABG HEMOGLOBIN 10.7; ABG POTASSIUM 3.4 (3.5-5.1); ABG SITE LEFT RADIAL; ALLEN TEST OK? YES; ARTERIAL BLD GAS O2 SATURATION 96.5 % (95-100); ARTERIAL BLD GAS TIDAL VOLUME 600 cc; ARTERIAL BLOOD GAS BASE EXCESS -0.4 (-2.0-2.0); ARTERIAL BLOOD GAS FIO2 50 %; ARTERIAL BLOOD GAS PCO2 45 mmHg (35-45); ARTERIAL BLOOD GAS PO2 174 mmHg (75-100); ARTERIAL BLOOD GAS VENT MODE A/C; ARTERIAL BLOOD GAS pH 7.36 (7.35-7.45); HCO3- 25.4 (22-28); HGB O2 SAT 96.5 g/dF (94-100)
--- NOTE | 2021-08-23 08:29 | CONS ---
CONSULT DATE: 08/22/2021 HISTORY: Tien Patel is a 65-year-old male with multiple health problems who has been admitted to [facility] with complaints of shortness of breath. The patient was noted to have acute respiratory failure and had to be intubated. He has been started on sedation along with paralytic. He presented to the emergency room with complaints of shortness of breath for the past three days prior to admission. The patient was attempted on noninvasive ventilation without much success. Oxygen saturations were 80% on nonrebreather. PAST MEDICAL HISTORY: The patient has history of hypertension, dyslipidemia, coronary artery disease, prior history of CVA and underlying chronic obstructive pulmonary disease. His medication record also indicates history of hypertension, anxiety, depression and dyslipidemia. He has a history of stroke and seizure as well. PAST SURGICAL HISTORY: Right total knee replacement. PERSONAL AND SOCIAL HISTORY: Currently unavailable. MEDICATIONS: Home medications reviewed. ALLERGIES: CODEINE. HYDROCODONE. MORPHINE. PENICILLIN. PHYSICAL EXAMINATION: This is a middle aged male who is intubated, sedated, chemically paralyzed. VITAL SIGNS: The patient is currently afebrile. Heart rate 120, blood pressure 134/70. Saturating 98%. HEENT: Normocephalic. Pupils are about 7 mm sluggishly reactive. ET tube and OT tube are in place. NECK: Short. CVS: First and second heart sounds with tachycardia. RESPIRATORY: Shows diminished breath sounds, scattered rhonchi are heard. ABDOMEN: Obese. EXTREMITIES: No significant edema is noted. Right knee scar is evident. LABORATORY DATA AND TESTS: Troponin I negative. On assist control rate of 16, tidal volume of 600, FIO2 of 50%, PEEP of 5, pH is 7.20, pCO2 of 62 and pO2 of 168. Rate was increased to 20. Other labs are pending. Chest x-ray is awaited as well. ASSESSMENT: This is a 65 year old male with multiple health problems admitted with: 1) Acute hypercapnic respiratory failure. 2) Acute hypoxemia. 3) Chronic obstructive pulmonary disease with exacerbation. 4) Infective etiology? Likely community acquired pneumonia. 5) History of hypertension. 6) Anxiety and depression. 7) Comorbidities listed above. RECOMMENDATIONS: 1) Continue mechanical ventilation. 2) Respiratory rate was increased to compensate for pH. 3) Advised to start fentanyl for analgesia, this might help alleviate tachycardia. 4) Monitor urinary output closely. 5) Follow up labs. 6) I agree with IV steroids, antibiotics, bronchodilators. 7) Hold unnecessary medications if possible. The patient's family has requested Do Not Resuscitate status based on his own expressed desire. His condition is critical but stable and prognosis remains guarded. I will be available to assist in his care. Thank you for allowing me to participate in the care of Tien Carmichaeln.
--- NOTE | 2021-08-23 08:59 | XRAY ---
Indication: Pneumonia. Comparison: One day earlier. Portable chest demonstrates worsening moderate diffuse bilateral patchy airspace disease with new small bibasilar effusions. Heart not enlarged for AP portable technique. Stable endotracheal tube with new NG tube tip in stomach.
[2021-08-23] MEDS ORDERED: BUMEX 1 MG IV ONE (09:07)
[2021-08-23] MEDS: NEURONTIN 300 MG PO SCH ×3 (09:33→21:07)
[2021-08-23] MEDS: Mirapex 0.5 MG Tablet PO SCH ×2 (09:33→21:07)
[2021-08-23] MEDS: Lubrifresh P.M. 3.5 gm Ointment OP SCH ×2 (09:33→21:04)
[2021-08-23] MEDS: PERIDEX MM SCH ×2 (09:33→21:04)
[2021-08-23] MEDS: AMITRIPTYLINE 25 MG TABLET PO SCH ×2 (09:34→21:07)
[2021-08-23] MEDS: Dilantin 100 MG PO SCH ×3 (09:34→21:06)
[2021-08-23] MEDS: ECOTRIN 81 MG PO SCH (09:34)
[2021-08-23] MEDS: Toprol Xl 100 MG PO SCH (09:34)
[2021-08-23] MEDS: ZOLOFT 50 MG TABLET PO SCH (09:35)
[2021-08-23] MEDS: Lasix 40 MG PO SCH (09:35)
[2021-08-23] MEDS: NORVASC 5 MG PO SCH (09:35)
[2021-08-23] MEDS: PROTONIX 40 MG IV IV SCH (09:35)
[2021-08-23] MEDS: BUSPAR 5 MG PO SCH ×2 (09:35→21:07)
[2021-08-23] MEDS: ENOXAPARIN SODIUM SQ SCH (09:35)
[2021-08-23] MEDS: Levofloxacin 500MG/100ML D5W 500 MG/100 ML BAG IV SCH (09:36)
[2021-08-23] MEDS: FENTANYL 500 MCG/10 ML VIAL 1,500 MCG in Sodium Chloride 0.9% 150 ML 120 ML IV PRN (09:36)
[2021-08-23] MEDS ORDERED: Tricor 145 MG PO SCH (10:00)
[2021-08-23] MEDS ORDERED: NON-FORMULARY ITEM (Amlodipine Besylate 10 Mg [Norvasc 10 Mg] 10 MG Tablet) PO SCH (10:00)
[2021-08-23] MEDS ORDERED: CHLORHEXIDINE GLUCONATE MM SCH (10:00)
[2021-08-23] MEDS ORDERED: FENOFIBRATE NANOCRYSTALLIZED PO SCH (10:00)
[2021-08-23] MEDS ORDERED: NON-FORMULARY ITEM (Sertraline Hcl [Zoloft] 100 MG Tablet) PO SCH (10:00)
[2021-08-23 10:47] LABS: Slide Review 1 YES
--- NOTE | 2021-08-23 12:45 | PCM.NOTE ---
Date and Time: 08/23/21 1242 Subjective Assessment: last 24 hours events noted. - Review of Systems Constitutional: Fever (Patient is sedated and on ventilator), No Chills Eyes: No Symptoms Ears, Nose, & Throat: No Symptoms Respiratory: No Cough, No Short Of Breath Cardiac: No Chest Pain, No Edema, No Syncope Abdominal/Gastrointestinal: No Abdominal Pain, No Nausea, No Vomiting, No Diarrhea Genitourinary Symptoms: No Dysuria Musculoskeletal: No Back Pain, No Neck Pain Skin: No Rash Neurological: No Dizziness, No Focal Weakness, No Sensory Changes Psychological: No Symptoms Endocrine: No Symptoms Hematologic/Lymphatic: No Symptoms Immunological/Allergic: No Symptoms All Other Systems: Unable due to condition Objective Exam General Appearance: no apparent distress Neurologic Exam: other (sedated , on ventilator) Eye Exam: post op pupil defect (L), post op pupil defect (R) Ears, Nose, Throat Exam: normal ENT inspection, TM abnormal (L) Neck Exam: No subcutaneous emphysema Lymphatic Exam: No adenopathy Respiratory Exam: rhonchi Cardiovascular Exam: tachycardia Gastrointestinal/Abdomen Exam: soft, normal bowel sounds Extremity Exam: normal inspection Back Exam: normal inspection OBJECTIVE DATA Vital Signs: Vital Signs - 24 hr Temp Pulse Resp BP BP BP Pulse Ox 08/23/21 11:55 96 H 08/23/21 11:35 99.5 F 95 H 20 102/57 100 08/23/21 11:04 98 H 20 100 08/23/21 11:00 99.7 F 98 H 20 90/60 100 08/23/21 10:00 99.7 F 113 H 20 137/79 95 08/23/21 09:00 99.9 F 127 H 18 144/86 99 08/23/21 08:00 100.0 F 110 H 20 125/77 100 08/23/21 07:45 108 H 08/23/21 07:44 94 L 08/23/21 07:00 99.1 F 104 H 18 116/70 100 08/23/21 06:59 105 H 20 100 08/23/21 06:00 99.3 F 105 H 20 117/69 100 08/23/21 04:56 99.5 F 103 H 20 112/71 99 08/23/21 04:00 99.9 F 107 H 20 123/70 98 08/23/21 03:20 114 H 20 98 08/23/21 03:02 117 H 20 126/71 08/23/21 03:00 100.2 F 115 H 20 126/71 98 08/23/21 02:00 99.9 F 111 H 20 126/72 100 08/23/21 01:00 99.9 F 112 H 20 120/68 96 08/23/21 00:01 114 H 08/23/21 00:00 100.0 F 114 H 20 117/74 97 08/22/21 23:16 113 H 20 100 08/22/21 23:00 99 F 111 H 20 114/71 100 08/22/21 22:31 105 H 20 111/79 08/22/21 22:00 99.5 F 106 H 20 108/72 98 08/22/21 21:00 99.1 F 105 H 20 108/69 99 08/22/21 20:00 99.0 F 105 H 20 134/76 100 08/22/21 19:30 105 H 20 08/22/21 19:00 118 H 20 133/78 98 08/22/21 18:37 118 H 20 97 08/22/21 18:00 118 H 20 136/78 97 08/22/21 17:00 117 H 20 126/72 98 08/22/21 16:00 99.3 F 117 H 20 125/74 99 08/22/21 15:00 117 H 20 114/61 98 08/22/21 14:37 121 H 16 97 08/22/21 14:00 100.4 F 121 H 16 130/71 95 08/22/21 13:00 121 H 16 128/71 94 L 08/22/21 12:51 118 H 16 140/77 Pain Assessment - Last Documented Pain Intensity 0 Pain Scale Used [facility] Intake and Output: Intake & Output 08/21/21 08/22/21 08/23/21 08/24/21 11:59 11:59 11:59 11:59 Intake Total 1300 3506 Output Total 425 1435 975 Balance 875 2071 -975 Weight 112 kg 125 kg Lab Results: Lab Results-Last 24 Hours 08/22/21 08/22/21 08/22/21 Range/Units 13:05 13:30 16:00 WBC (4.0-10.5) K/mm3 RBC (4.1-5.6) M/mm3 Hgb (12.5-18.0) gm/dl Hct (42-50) % MCV (78-100) fl MCH (26-32) pg MCHC (32-36) g/dl RDW (11.5-14.0) % Plt Count (150-450) K/mm3 MPV (7.5-11.0) fl Gran % (36.0-66.0) % Eos # (Auto) (0-0.5) Absolute Lymphs (auto) (1.0-4.6) Absolute Monos (auto) (0.0-1.3) Lymphocytes % (24.0-44.0) % Monocytes % (0.0-12.0) % Eosinophils % (0.00-5.0) % Basophils % (0.0-0.4) % Absolute Granulocytes (1.4-6.9) Basophils # (0-0.4) Puncture Site LEFT RADIAL pCO2 62 H* (35-45) mmHg pO2 168 H* (75-100) mmHg Base Excess -4.9 L (-2.0-2.0) O2 Saturation 97.0 (94-100) g/dF ABG pH 7.20 L* (7.35-7.45) ABG HCO3 24.2 (22-28) ABG O2 Sat (Measured) 97.0 (95-100) % Elian Test NOT APPLICABLE A-a Gradient 111 a/A Ratio 0.60 Hemoglobin 8.4 Carboxyhemoglobin 0.0 (0.0-6.9) % THgb Methemoglobin 0.0 L (1.4-1.5) % Potassium 4.0 (3.5-5.1) Temperature 37.0 C POC O2 Flow Rate 50 % Vent Mode A/C Tidal Volume 600 cc PEEP 5.0 cmH2O Sodium (137-145) mmol/L Chloride (98-107) mmol/L Carbon Dioxide (22-30) mmol/L Anion Gap (5-15) MEQ/L BUN (9-20) mg/dL Creatinine (0.66-1.25) mg/dL Estimated GFR ML/MIN Glucose (74-106) mg/dL POC Glucometer (74 to 106) mg/dL Hemoglobin A1c (4.5-6.0) % Lactic Acid (0.4-2.0) Calcium (8.4-10.2) mg/dL Total Bilirubin (0.2-1.3) mg/dL AST (17-59) U/L ALT (0-50) U/L Alkaline Phosphatase (38-126) U/L Troponin I 0.017 0.014 (0.000-0.034) ng/mL NT-Pro-B Natriuret Pep (0-900) pg/mL Serum Total Protein (6.3-8.2) g/dL Albumin (3.5-5.0) g/dL Procalcitonin (0.030-0.080) ng/mL Slides for Path Review 08/22/21 08/22/21 08/23/21 Range/Units 19:30 21:18 02:05 WBC (4.0-10.5) K/mm3 RBC (4.1-5.6) M/mm3 Hgb (12.5-18.0) gm/dl Hct (42-50) % MCV (78-100) fl MCH (26-32) pg MCHC (32-36) g/dl RDW (11.5-14.0) % Plt Count (150-450) K/mm3 MPV (7.5-11.0) fl Gran % (36.0-66.0) % Eos # (Auto) (0-0.5) Absolute Lymphs (auto) (1.0-4.6) Absolute Monos (auto) (0.0-1.3) Lymphocytes % (24.0-44.0) % Monocytes % (0.0-12.0) % Eosinophils % (0.00-5.0) % Basophils % (0.0-0.4) % Absolute Granulocytes (1.4-6.9) Basophils # (0-0.4) Puncture Site pCO2 (35-45) mmHg pO2 (75-100) mmHg Base Excess (-2.0-2.0) O2 Saturation (94-100) g/dF ABG pH (7.35-7.45) ABG HCO3 (22-28) ABG O2 Sat (Measured) (95-100) % Elian Test A-a Gradient a/A Ratio Hemoglobin Carboxyhemoglobin (0.0-6.9) % THgb Methemoglobin (1.4-1.5) % Potassium (3.5-5.1) Temperature C POC O2 Flow Rate % Vent Mode Tidal Volume cc PEEP cmH2O Sodium (137-145) mmol/L Chloride (98-107) mmol/L Carbon Dioxide (22-30) mmol/L Anion Gap (5-15) MEQ/L BUN (9-20) mg/dL Creatinine (0.66-1.25) mg/dL Estimated GFR ML/MIN Glucose (74-106) mg/dL POC Glucometer 102 91 (74 to 106) mg/dL Hemoglobin A1c (4.5-6.0) % Lactic Acid (0.4-2.0) Calcium (8.4-10.2) mg/dL Total Bilirubin (0.2-1.3) mg/dL AST (17-59) U/L ALT (0-50) U/L Alkaline Phosphatase (38-126) U/L Troponin I < 0.012 (0.000-0.034) ng/mL NT-Pro-B Natriuret Pep (0-900) pg/mL Serum Total Protein (6.3-8.2) g/dL Albumin (3.5-5.0) g/dL Procalcitonin (0.030-0.080) ng/mL Slides for Path Review 08/23/21 08/23/21 08/23/21 Range/Units 04:10 04:10 04:10 WBC 10.3 (4.0-10.5) K/mm3 RBC 3.99 L (4.1-5.6) M/mm3 Hgb 7.5 L (12.5-18.0) gm/dl Hct 27.3 L (42-50) % MCV 68.4 L (78-100) fl MCH 18.8 L (26-32) pg MCHC 27.5 L (32-36) g/dl RDW 21.7 H (11.5-14.0) % Plt Count 252 (150-450) K/mm3 MPV 9.3 (7.5-11.0) fl Gran % 76.7 H (36.0-66.0) % Eos # (Auto) 0 (0-0.5) Absolute Lymphs (auto) 1.34 (1.0-4.6) Absolute Monos (auto) 1.06 (0.0-1.3) Lymphocytes % 13.0 L (24.0-44.0) % Monocytes % 10.3 (0.0-12.0) % Eosinophils % 0.0 (0.00-5.0) % Basophils % 0.0 (0.0-0.4) % Absolute Granulocytes 7.87 H (1.4-6.9) Basophils # 0 (0-0.4) Puncture Site pCO2 (35-45) mmHg pO2 (75-100) mmHg Base Excess (-2.0-2.0) O2 Saturation (94-100) g/dF ABG pH (7.35-7.45) ABG HCO3 (22-28) ABG O2 Sat (Measured) (95-100) % Elian Test A-a Gradient a/A Ratio Hemoglobin Carboxyhemoglobin (0.0-6.9) % THgb Methemoglobin (1.4-1.5) % Potassium 3.4 L (3.5-5.1) Temperature C POC O2 Flow Rate % Vent Mode Tidal Volume cc PEEP cmH2O Sodium 135 L (137-145) mmol/L Chloride 103 (98-107) mmol/L Carbon Dioxide 23 (22-30) mmol/L Anion Gap 12.4 (5-15) MEQ/L BUN 11 (9-20) mg/dL Creatinine 0.58 L (0.66-1.25) mg/dL Estimated GFR > 60.0 ML/MIN Glucose 99 (74-106) mg/dL POC Glucometer (74 to 106) mg/dL Hemoglobin A1c (4.5-6.0) % Lactic Acid (0.4-2.0) Calcium 8.0 L (8.4-10.2) mg/dL Total Bilirubin 0.50 (0.2-1.3) mg/dL AST 35 (17-59) U/L ALT 12 (0-50) U/L Alkaline Phosphatase 81 (38-126) U/L Troponin I (0.000-0.034) ng/mL NT-Pro-B Natriuret Pep 1110 H (0-900) pg/mL Serum Total Protein 6.6 (6.3-8.2) g/dL Albumin 3.1 L (3.5-5.0) g/dL Procalcitonin 1.030 H (0.030-0.080) ng/mL Slides for Path Review YES 08/23/21 08/23/21 08/23/21 Range/Units 04:10 05:45 07:53 WBC (4.0-10.5) K/mm3 RBC (4.1-5.6) M/mm3 Hgb (12.5-18.0) gm/dl Hct (42-50) % MCV (78-100) fl MCH (26-32) pg MCHC (32-36) g/dl RDW (11.5-14.0) % Plt Count (150-450) K/mm3 MPV (7.5-11.0) fl Gran % (36.0-66.0) % Eos # (Auto) (0-0.5) Absolute Lymphs (auto) (1.0-4.6) Absolute Monos (auto) (0.0-1.3) Lymphocytes % (24.0-44.0) % Monocytes % (0.0-12.0) % Eosinophils % (0.00-5.0) % Basophils % (0.0-0.4) % Absolute Granulocytes (1.4-6.9) Basophils # (0-0.4) Puncture Site LEFT RADIAL pCO2 45 (35-45) mmHg pO2 174 H* (75-100) mmHg Base Excess -0.4 (-2.0-2.0) O2 Saturation 96.5 (94-100) g/dF ABG pH 7.36 (7.35-7.45) ABG HCO3 25.4 (22-28) ABG O2 Sat (Measured) 96.5 (95-100) % Elian Test YES A-a Gradient 126 a/A Ratio 0.58 Hemoglobin 10.7 Carboxyhemoglobin 0.0 (0.0-6.9) % THgb Methemoglobin 0.0 L (1.4-1.5) % Potassium 3.4 L (3.5-5.1) Temperature 37.0 C POC O2 Flow Rate 50 % Vent Mode A/C Tidal Volume 600 cc PEEP 5.0 cmH2O Sodium (137-145) mmol/L Chloride (98-107) mmol/L Carbon Dioxide (22-30) mmol/L Anion Gap (5-15) MEQ/L BUN (9-20) mg/dL Creatinine (0.66-1.25) mg/dL Estimated GFR ML/MIN Glucose (74-106) mg/dL POC Glucometer 103 (74 to 106) mg/dL Hemoglobin A1c 6.10 H (4.5-6.0) % Lactic Acid (0.4-2.0) Calcium (8.4-10.2) mg/dL Total Bilirubin (0.2-1.3) mg/dL AST (17-59) U/L ALT (0-50) U/L Alkaline Phosphatase (38-126) U/L Troponin I (0.000-0.034) ng/mL NT-Pro-B Natriuret Pep (0-900) pg/mL Serum Total Protein (6.3-8.2) g/dL Albumin (3.5-5.0) g/dL Procalcitonin (0.030-0.080) ng/mL Slides for Path Review 08/23/21 08/23/21 Range/Units 09:30 12:21 WBC (4.0-10.5) K/mm3 RBC (4.1-5.6) M/mm3 Hgb (12.5-18.0) gm/dl Hct (42-50) % MCV (78-100) fl MCH (26-32) pg MCHC (32-36) g/dl RDW (11.5-14.0) % Plt Count (150-450) K/mm3 MPV (7.5-11.0) fl Gran % (36.0-66.0) % Eos # (Auto) (0-0.5) Absolute Lymphs (auto) (1.0-4.6) Absolute Monos (auto) (0.0-1.3) Lymphocytes % (24.0-44.0) % Monocytes % (0.0-12.0) % Eosinophils % (0.00-5.0) % Basophils % (0.0-0.4) % Absolute Granulocytes (1.4-6.9) Basophils # (0-0.4) Puncture Site pCO2 (35-45) mmHg pO2 (75-100) mmHg Base Excess (-2.0-2.0) O2 Saturation (94-100) g/dF ABG pH (7.35-7.45) ABG HCO3 (22-28) ABG O2 Sat (Measured) (95-100) % Elian Test A-a Gradient a/A Ratio Hemoglobin Carboxyhemoglobin (0.0-6.9) % THgb Methemoglobin (1.4-1.5) % Potassium (3.5-5.1) Temperature C POC O2 Flow Rate % Vent Mode Tidal Volume cc PEEP cmH2O Sodium (137-145) mmol/L Chloride (98-107) mmol/L Carbon Dioxide (22-30) mmol/L Anion Gap (5-15) MEQ/L BUN (9-20) mg/dL Creatinine (0.66-1.25) mg/dL Estimated GFR ML/MIN Glucose (74-106) mg/dL POC Glucometer 112 H (74 to 106) mg/dL Hemoglobin A1c (4.5-6.0) % Lactic Acid 0.7 (0.4-2.0) Calcium (8.4-10.2) mg/dL Total Bilirubin (0.2-1.3) mg/dL AST (17-59) U/L ALT (0-50) U/L Alkaline Phosphatase (38-126) U/L Troponin I (0.000-0.034) ng/mL NT-Pro-B Natriuret Pep (0-900) pg/mL Serum Total Protein (6.3-8.2) g/dL Albumin (3.5-5.0) g/dL Procalcitonin (0.030-0.080) ng/mL Slides for Path Review Radiology Exams: Radiology Procedures Category Date Time Status CHEST 1 VIEW (PORTABLE) DAILY Exams 08/24/21 07:00 Ordered CHEST 1 VIEW (PORTABLE) Routine Exams 08/22/21 06:41 Completed ECHO W/2D AND DOPPLER [US] Routine Exams 08/23/21 10:43 Taken Portable Chest [CHEST 1 VIEW (PORTABLE)] Routine Exams 08/23/21 08:00 Completed Multi-Disciplinary Progress Notes: Multi-Disciplinary Progress Notes 08/23/21 10:01 Case Management Note by Haydee Mauricio PATIENT CRITICALLY ILL- WILL HOLD DC PLANNING ASSESSMENT UNTIL PATIENT CLOSER TO DC Initialized on 08/23/21 10:01 - END OF NOTE 08/22/21 14:48 Respiratory Note by Jenny Hernandez 4/11 LATE ENTRY AT 730AM THIS AM I CALLED [facility] AND INFORMED THE NURSE THAT PATIENT WAS INTUBATED. I DOCUMENTED THE REFERENCE NUMBER ON FORM AND GAVE TO THE ER NURSE. PARVIZ Initialized on 08/22/21 14:48 - END OF NOTE 08/22/21 14:46 Respiratory Note by Jenny Hernandez i CALLED DR ALTMAN AND GAVE HIM PATIENT ABG, LAB, XRAY, SEDATION, AND ANTIBODICS AND INFORMATION ON WHY HE WAS ADMITTED. hE REQUESTED VENT BE INCREASED TO 20 AND TO LET HIM KNOW IF ANY QUESTIONS. PARVIZ Initialized on 08/22/21 14:46 - END OF NOTE Assessment/Plan (1) Acute respiratory failure with hypoxia and hypercapnia Current Visit: Yes Status: Acute Assessment & Plan: Chief Complaint Diagnosis severe shortness of breath for 1-2 days Allergies Allergy/AdvReac Type Severity Reaction Status Date / Time codeine Allergy Severe stop Verified 08/22/21 07:29 breathing hydrocodone Allergy Severe stop Verified 08/22/21 07:29 breathing morphine Allergy Severe stop Verified 08/22/21 07:29 breathing Penicillins Allergy Verified 08/22/21 07:29 Vital Signs (Last 24 hours) Temp Pulse Resp BP BP BP Pulse Ox 08/23/21 11:55 96 H 08/23/21 11:35 99.5 F 95 H 20 102/57 100 08/23/21 11:04 98 H 20 100 08/23/21 11:00 99.7 F 98 H 20 90/60 100 08/23/21 10:00 99.7 F 113 H 20 137/79 95 08/23/21 09:00 99.9 F 127 H 18 144/86 99 08/23/21 08:00 100.0 F 110 H 20 125/77 100 08/23/21 07:45 108 H 08/23/21 07:44 94 L 08/23/21 07:00 99.1 F 104 H 18 116/70 100 08/23/21 06:59 105 H 20 100 08/23/21 06:00 99.3 F 105 H 20 117/69 100 08/23/21 04:56 99.5 F 103 H 20 112/71 99 08/23/21 04:00 99.9 F 107 H 20 123/70 98 08/23/21 03:20 114 H 20 98 08/23/21 03:02 117 H 20 126/71 08/23/21 03:00 100.2 F 115 H 20 126/71 98 08/23/21 02:00 99.9 F 111 H 20 126/72 100 08/23/21 01:00 99.9 F 112 H 20 120/68 96 08/23/21 00:01 114 H 08/23/21 00:00 100.0 F 114 H 20 117/74 97 08/22/21 23:16 113 H 20 100 08/22/21 23:00 99 F 111 H 20 114/71 100 08/22/21 22:31 105 H 20 111/79 08/22/21 22:00 99.5 F 106 H 20 108/72 98 08/22/21 21:00 99.1 F 105 H 20 108/69 99 08/22/21 20:00 99.0 F 105 H 20 134/76 100 08/22/21 19:30 105 H 20 08/22/21 19:00 118 H 20 133/78 98 08/22/21 18:37 118 H 20 97 08/22/21 18:00 118 H 20 136/78 97 08/22/21 17:00 117 H 20 126/72 98 08/22/21 16:00 99.3 F 117 H 20 125/74 99 08/22/21 15:00 117 H 20 114/61 98 08/22/21 14:37 121 H 16 97 08/22/21 14:00 100.4 F 121 H 16 130/71 95 08/22/21 13:00 121 H 16 128/71 94 L 08/22/21 12:51 118 H 16 140/77 Home Medications Medication Instructions Recorded Confirmed Last Taken Type Albuterol Sulfate [Proair Hfa] 1 inh PO Q46H 08/22/21 08/22/21 Unknown History Aspirin EC 81 mg [Ecotrin 81 81 mg PO DAILY 08/22/21 08/22/21 Unknown History mg] Buspirone HCl 5 mg [Buspar 5 10 mg PO BID 08/22/21 08/22/21 Unknown History mg] Furosemide 40 mg [Lasix 40 40 mg PO DAILY 08/22/21 08/22/21 Unknown History MG] Mirtazapine 30 mg [Remeron 30 30 mg PO HS 08/22/21 08/22/21 Unknown History mg] Pramipexole Di-HCl [Pramipexole 1 mg PO BID 08/22/21 08/22/21 Unknown History Dihydrochloride] Sertraline HCl [Zoloft] 100 mg PO DAILY 08/22/21 08/22/21 Unknown History Current Medications Generic Name Dose Route Start Last Admin Trade Name Freq PRN Reason Stop Dose Admin Acetaminophen 650 mg 08/22/21 10:30 08/23/21 08:16 Acetaminophen 650 Mg Supp.Rect HI 09/21/21 10:29 650 mg Q4H PRN PRN Administration PAIN AND/OR FEVER Albuterol/Ipratropium 3 ml 08/22/21 11:00 08/23/21 11:03 Ipratropium/Albuterol Sulfate 3 Ml Ampul.Neb IH 09/21/21 10:59 3 ml Q4HRT JAY Administration Amitriptyline HCl 25 mg 08/22/21 22:00 08/23/21 09:34 Amitriptyline Hcl 25 Mg Tablet PO 09/21/21 21:59 25 mg BID JAY Administration Amitriptyline HCl 50 mg 08/22/21 22:00 08/23/21 09:34 Amitriptyline Hcl 50 Mg Tablet PO 09/21/21 21:59 50 mg BID JAY Administration Amlodipine Besylate 10 mg 08/23/21 10:00 08/23/21 09:35 Amlodipine Besylate 5 Mg Tablet PO 09/22/21 09:59 10 mg DAILY JAY Administration Artificial Tears 1 gm 08/23/21 10:00 08/23/21 09:33 Lanolin/Min Oil/Petrolat Wht 3.5 Gm Tube OP 09/22/21 09:59 1 gm Q12H JAY Administration Aspirin 81 mg 08/23/21 10:00 08/23/21 09:34 Aspirin 81 Mg Tablet.Ec PO 09/22/21 09:59 81 mg DAILY JAY Administration Buspirone HCl 10 mg 08/22/21 22:00 08/23/21 09:35 Buspirone Hcl 5 Mg Tablet PO 09/21/21 21:59 10 mg BID JAY Administration Chlorhexidine Gluconate 15 ml 08/23/21 10:00 08/23/21 09:33 Chlorhexidine Gluconate 15 Ml Mouthwash MM 09/22/21 09:59 15 ml BID JAY Administration Enoxaparin Sodium 40 mg 08/22/21 10:30 08/23/21 09:35 Enoxaparin Sodium 40 Mg/0.4 Ml Syringe SQ 09/21/21 10:29 40 mg DAILY JAY Administration Furosemide 40 mg 08/23/21 10:00 08/23/21 09:35 Furosemide 40 Mg Tablet PO 09/22/21 09:59 40 mg DAILY JAY Administration Gabapentin 300 mg 08/22/21 22:00 08/23/21 09:33 Gabapentin 300 Mg Capsule PO 09/21/21 21:59 300 mg TID JAY Administration Propofol 100 mls @ 10.08 mls/hr 08/22/21 07:25 08/23/21 12:07 Propofol 1000 Mg/100 Ml Bottle IV 09/21/21 07:24 45 mcg/kg/min .Q9H56M PRN 30.24 mls/hr SEDATION FOR VENT Administration Protocol 15 MCG/KG/MIN Sodium Chloride 1,000 mls @ 50 mls/hr 08/22/21 10:30 08/22/21 18:16 Sodium Chloride 0.9% 1000 Ml IV 09/21/21 10:29 50 mls/hr .Q20H JAY Administration Levofloxacin/Dextrose 500 mg in 100 mls @ 100 mls/hr 08/22/21 10:30 08/23/21 09:36 Levofloxacin 500mg/100ml D5w IV 09/21/21 10:29 100 mls/hr Q24H10 JAY Administration Cisatracurium Besylate 200 mg/ 200 mls @ 20.16 mls/hr 08/22/21 13:00 08/23/21 03:02 Dextrose IV 09/21/21 12:59 2 mcg/kg/min .Q9H56M PRN 13.44 mls/hr PARALYSIS Administration Protocol 3 MCG/KG/MIN Aztreonam 1 gm/ Sodium 100 mls @ 200 mls/hr 08/22/21 13:00 08/23/21 12:03 Chloride IV 08/25/21 12:59 200 mls/hr Q6HT JAY Administration Fentanyl Citrate 1,500 mcg/ 150 mls @ 2.5 mls/hr 08/22/21 16:38 08/23/21 09:36 Sodium Chloride IV 09/21/21 16:37 0.7 mcg/kg/hr .Q24H PRN 8.75 mls/hr PAIN Administration Protocol 0.2 MCG/KG/HR Metoprolol Succinate 100 mg 08/23/21 10:00 08/23/21 09:34 Metoprolol Succinate 100 Mg Tablet.Sa PO 09/22/21 09:59 100 mg DAILY JAY Administration Mirtazapine 30 mg 08/22/21 22:00 08/22/21 22:00 Mirtazapine 30 Mg Tablet PO 09/21/21 21:59 30 mg HS JAY Administration Miscellaneous Information 1 each 08/22/21 13:45 Medication Intervention 1 Each Each 09/21/21 13:44 .RN TO CHECK JAY Ondansetron HCl 4 mg 08/22/21 10:30 Ondansetron Hcl 4 Mg/2 Ml Vial IV 09/21/21 10:29 Q6H PRN PRN NAUSEA/VOMITING Pantoprazole Sodium 40 mg 08/22/21 10:30 08/23/21 09:35 Pantoprazole 40 Mg Vial IV 09/21/21 10:29 40 mg Q24H JAY Administration Phenytoin Sodium 300 mg 08/23/21 08:00 08/23/21 09:34 Phenytoin Sodium Extended 100 Mg Capsule PO 09/22/21 07:59 300 mg BREAKFAST JAY Administration Phenytoin Sodium 100 mg 08/23/21 12:00 08/23/21 12:07 Phenytoin Sodium Extended 100 Mg Capsule PO 09/22/21 11:59 100 mg NOON JAY Administration Phenytoin Sodium 200 mg 08/22/21 22:00 08/22/21 21:59 Phenytoin Sodium Extended 100 Mg Capsule PO 09/21/21 21:59 200 mg QPM JAY Administration Pramipexole Dihydrochloride 1 mg 08/22/21 22:00 08/23/21 09:33 Pramipexole Di-Hcl 0.5 Mg Tab PO 09/21/21 21:59 1 mg BID JAY Administration Sertraline HCl 100 mg 08/23/21 10:00 08/23/21 09:35 Sertraline Hcl 50 Mg Tab PO 09/22/21 09:59 100 mg DAILY JAY Administration Discontinued Medications Generic Name Dose Route Start Last Admin Trade Name Freq PRN Reason Stop Dose Admin Acetaminophen Confirm 08/22/21 07:05 Acetaminophen 325mg Suppository Administered 08/22/21 07:06 Dose 650 mg .ROUTE .STK-MED ONE Acetaminophen 650 mg 08/22/21 08:04 08/22/21 07:09 Acetaminophen 325mg Suppository HI 08/22/21 08:05 650 mg STAT STA Administration Albuterol Sulfate 2 puff 08/22/21 15:00 Albuterol Common Canister Inhaler IH 09/21/21 14:59 Q4HRT JAY Albuterol/Ipratropium Confirm 08/22/21 10:05 Ipratropium/Albuterol Sulfate 3 Ml Ampul.Neb Administered 08/22/21 10:06 Dose 3 ml IH .STK-MED ONE Bumetanide 1 mg 08/23/21 09:07 08/23/21 09:33 Bumetanide 0.25 Mg/Ml 4ml Vial IV 08/23/21 09:08 1 mg STAT ONE Administration Chlorhexidine Gluconate 15 ml 08/23/21 10:00 Chlorhexidine Gluconate 473 Ml Mouthwash MM 09/22/21 09:59 BID [facility] Cisatracurium Besylate 10 mg 08/22/21 13:00 08/22/21 12:50 Cisatracurium 20 Mg/10 Ml Vial IV 08/22/21 13:01 10 mg ONCE ONE Administration Etomidate 20 mg 08/22/21 07:00 08/22/21 06:46 Etomidate 20 Mg/10 Ml Amp IV 08/22/21 07:01 20 mg STAT STA Administration Fenofibrate 145 mg 08/23/21 10:00 Fenofibrate,Micronized 145 Mg Tablet PO 09/22/21 09:59 DAILY [facility] Fentanyl Citrate 100 mcg 08/22/21 08:02 08/22/21 08:04 Fentanyl Citrate 100 Mcg/2 Ml* Vial IV 08/22/21 08:03 100 mcg STAT ONE Administration Fentanyl Citrate Confirm 08/22/21 08:03 Fentanyl Citrate 100 Mcg/2 Ml* Vial Administered 08/22/21 08:04 Dose 100 mcg .ROUTE .STK-MED ONE Levofloxacin/Dextrose 750 mg in 150 mls @ 100 mls/hr 08/22/21 06:57 08/22/21 07:30 Levofloxacin 750mg/150ml D5w IV 08/22/21 08:26 100 ml/hr STAT STA 100 mls/hr Administration Aztreonam 2 gm/ Sodium 100 mls @ 200 mls/hr 08/22/21 06:58 08/22/21 08:47 Chloride IV 08/22/21 07:27 200 mls/hr STAT ONE Administration Rocuronium [place] 100 mg/ 100 mls @ 33.6 mls/hr 08/22/21 07:25 08/22/21 07:14 Sodium Chloride IV 08/22/21 13:00 5 mcg/kg/min .Q2H59M PRN 33.6 mls/hr PARALYSIS FOR VENT Administration Protocol 5 MCG/KG/MIN Levofloxacin/Dextrose Confirm 08/22/21 07:29 Levofloxacin 750mg/150ml D5w Administered 08/22/21 07:30 Dose 750 mg in 150 mls @ ud IV .STK-MED ONE Sodium Chloride 1,000 mls @ 50 mls/hr 08/22/21 08:15 08/22/21 06:41 Sodium Chloride 0.9% 1000 Ml IV 09/21/21 08:14 50 mls/hr .Q20H JAY Administration Sodium Chloride 1,000 mls @ 250 mls/hr 08/22/21 08:15 08/22/21 08:11 Sodium Chloride 0.9% 1000 Ml IV 09/21/21 08:14 250 mls/hr .Q4H JAY Administration Aztreonam 1 gm/ Sodium 100 mls @ 200 mls/hr 08/22/21 12:00 08/22/21 17:27 Chloride IV 08/25/21 11:59 Not Given Q6HT JAY Non-Formulary Medication 1 each 08/22/21 10:46 08/22/21 15:14 Pharmacy Dosing Request 08/22/21 10:47 1 each STAT ONE Administration Non-Formulary Medication 75 mg 08/22/21 22:00 Amitriptyline Hcl [Amitriptyline Hcl] PO 09/21/21 21:59 BID JAY Phenytoin Sodium 600 mg 08/22/21 13:30 Phenytoin Sodium Extended 100 Mg Capsule PO 09/21/21 13:29 UD JAY Propofol 150 mg 08/22/21 07:00 08/22/21 06:54 Propofol 10 Mg/Ml 20ml Vial IV 08/22/21 07:01 150 mg STAT STA Administration Rocuronium [place] 100 mg 08/22/21 07:25 08/22/21 06:56 Rocuronium [place] 100 Mg/10ml Vial IV 08/22/21 07:26 100 mg STAT STA Administration Succinylcholine Chloride 150 mg 08/22/21 06:50 08/22/21 06:46 Succinylcholine Chloride 200mg/10 Ml Vial IV 08/22/21 06:51 150 mg STAT STA Administration Intake & Output (Last 24 hours) 08/21/21 08/22/21 08/23/21 08/24/21 11:59 11:59 11:59 11:59 Intake Total 1300 3506 Output Total 425 1435 975 Balance 875 2071 -975 Weight 112 kg 125 kg Microbiology Results (Last 24 hours) 08/22/21 06:56 Clean Catch Midstream Urine Culture - Preliminary NO GROWTH TO DATE Laboratory Results (Last 24 hours) 08/23/21 08/23/21 08/23/21 12:21 09:30 07:53 WBC RBC Hgb Hct MCV MCH MCHC RDW Plt Count MPV Gran % Eos # (Auto) Absolute Lymphs (auto) Absolute Monos (auto) Lymphocytes % Monocytes % Eosinophils % Basophils % Absolute Granulocytes Basophils # Puncture Site pCO2 pO2 Base Excess O2 Saturation ABG pH ABG HCO3 ABG O2 Sat (Measured) Elian Test A-a Gradient a/A Ratio Hemoglobin Carboxyhemoglobin Methemoglobin Potassium Temperature POC O2 Flow Rate Vent Mode Tidal Volume PEEP Sodium Chloride Carbon Dioxide Anion Gap BUN Creatinine Estimated GFR Glucose POC Glucometer 112 H 103 Hemoglobin A1c Lactic Acid 0.7 Calcium Total Bilirubin AST ALT Alkaline Phosphatase Troponin I NT-Pro-B Natriuret Pep Serum Total Protein Albumin Procalcitonin Slides for Path Review 08/23/21 08/23/21 08/23/21 05:45 04:10 04:10 WBC RBC Hgb Hct MCV MCH MCHC RDW Plt Count MPV Gran % Eos # (Auto) Absolute Lymphs (auto) Absolute Monos (auto) Lymphocytes % Monocytes % Eosinophils % Basophils % Absolute Granulocytes Basophils # Puncture Site LEFT RADIAL pCO2 45 pO2 174 H* Base Excess -0.4 O2 Saturation 96.5 ABG pH 7.36 ABG HCO3 25.4 ABG O2 Sat (Measured) 96.5 Elian Test YES A-a Gradient 126 a/A Ratio 0.58 Hemoglobin 10.7 Carboxyhemoglobin 0.0 Methemoglobin 0.0 L Potassium 3.4 L Temperature 37.0 POC O2 Flow Rate 50 Vent Mode A/C Tidal Volume 600 PEEP 5.0 Sodium Chloride Carbon Dioxide Anion Gap BUN Creatinine Estimated GFR Glucose POC Glucometer Hemoglobin A1c 6.10 H Lactic Acid Calcium Total Bilirubin AST ALT Alkaline Phosphatase Troponin I NT-Pro-B Natriuret Pep Serum Total Protein Albumin Procalcitonin 1.030 H Slides for Path Review 08/23/21 08/23/21 08/23/21 04:10 04:10 02:05 WBC 10.3 RBC 3.99 L Hgb 7.5 L Hct 27.3 L MCV 68.4 L MCH 18.8 L MCHC 27.5 L RDW 21.7 H Plt Count 252 MPV 9.3 Gran % 76.7 H Eos # (Auto) 0 Absolute Lymphs (auto) 1.34 Absolute Monos (auto) 1.06 Lymphocytes % 13.0 L Monocytes % 10.3 Eosinophils % 0.0 Basophils % 0.0 Absolute Granulocytes 7.87 H Basophils # 0 Puncture Site pCO2 pO2 Base Excess O2 Saturation ABG pH ABG HCO3 ABG O2 Sat (Measured) Elian Test A-a Gradient a/A Ratio Hemoglobin Carboxyhemoglobin Methemoglobin Potassium 3.4 L Temperature POC O2 Flow Rate Vent Mode Tidal Volume PEEP Sodium 135 L Chloride 103 Carbon Dioxide 23 Anion Gap 12.4 BUN 11 Creatinine 0.58 L Estimated GFR > 60.0 Glucose 99 POC Glucometer 91 Hemoglobin A1c Lactic Acid Calcium 8.0 L Total Bilirubin 0.50 AST 35 ALT 12 Alkaline Phosphatase 81 Troponin I NT-Pro-B Natriuret Pep 1110 H Serum Total Protein 6.6 Albumin 3.1 L Procalcitonin Slides for Path Review YES 08/22/21 08/22/21 08/22/21 21:18 19:30 16:00 WBC RBC Hgb Hct MCV MCH MCHC RDW Plt Count MPV Gran % Eos # (Auto) Absolute Lymphs (auto) Absolute Monos (auto) Lymphocytes % Monocytes % Eosinophils % Basophils % Absolute Granulocytes Basophils # Puncture Site pCO2 pO2 Base Excess O2 Saturation ABG pH ABG HCO3 ABG O2 Sat (Measured) Elian Test A-a Gradient a/A Ratio Hemoglobin Carboxyhemoglobin Methemoglobin Potassium Temperature POC O2 Flow Rate Vent Mode Tidal Volume PEEP Sodium Chloride Carbon Dioxide Anion Gap BUN Creatinine Estimated GFR Glucose POC Glucometer 102 Hemoglobin A1c Lactic Acid Calcium Total Bilirubin AST ALT Alkaline Phosphatase Troponin I < 0.012 0.014 NT-Pro-B Natriuret Pep Serum Total Protein Albumin Procalcitonin Slides for Path Review 08/22/21 08/22/21 13:30 13:05 WBC RBC Hgb Hct MCV MCH MCHC RDW Plt Count MPV Gran % Eos # (Auto) Absolute Lymphs (auto) Absolute Monos (auto) Lymphocytes % Monocytes % Eosinophils % Basophils % Absolute Granulocytes Basophils # Puncture Site LEFT RADIAL pCO2 62 H* pO2 168 H* Base Excess -4.9 L O2 Saturation 97.0 ABG pH 7.20 L* ABG HCO3 24.2 ABG O2 Sat (Measured) 97.0 Elian Test NOT APPLICABLE A-a Gradient 111 a/A Ratio 0.60 Hemoglobin 8.4 Carboxyhemoglobin 0.0 Methemoglobin 0.0 L Potassium 4.0 Temperature 37.0 POC O2 Flow Rate 50 Vent Mode A/C Tidal Volume 600 PEEP 5.0 Sodium Chloride Carbon Dioxide Anion Gap BUN Creatinine Estimated GFR Glucose POC Glucometer Hemoglobin A1c Lactic Acid Calcium Total Bilirubin AST ALT Alkaline Phosphatase Troponin I 0.017 NT-Pro-B Natriuret Pep Serum Total Protein Albumin Procalcitonin Slides for Path Review Orders (Last 24 hours) Category Date Time Status POCT Glucose Check Q6H Care 08/22/21 20:07 Active Nutritional Consult ROUTINE Diet 08/23/21 09:01 Active CHEST 1 VIEW (PORTABLE) DAILY Exams 08/24/21 07:00 Ordered ECHO W/2D AND DOPPLER [US] Routine Exams 08/23/21 10:43 Taken Portable Chest [CHEST 1 VIEW (PORTABLE)] Routine Exams 08/23/21 08:00 Completed ABG [ARTERIAL BLOOD GASES] DAILY Lab 08/23/21 05:45 Completed ABG [ARTERIAL BLOOD GASES] DAILY Lab 08/24/21 05:00 Ordered ABG [ARTERIAL BLOOD GASES] DAILY Lab 08/25/21 05:00 Ordered ABG [ARTERIAL BLOOD GASES] DAILY Lab 08/26/21 05:00 Ordered ABG [ARTERIAL BLOOD GASES] DAILY Lab 08/27/21 05:00 Ordered ABG [ARTERIAL BLOOD GASES] Routine Lab 08/22/21 13:05 Completed CBC AM.LAB Lab 08/24/21 04:00 Ordered CBC W DIFF AM.LAB Lab 08/23/21 04:10 Completed CMP AM.LAB Lab 08/23/21 04:10 Completed CMP AM.LAB Lab 08/24/21 04:00 Ordered HEMOGLOBIN A1C Urgent Lab 08/23/21 04:10 Completed Lactic Acid Stat Lab 08/23/21 09:30 Completed NT PRO BNP AM.LAB Lab 08/23/21 04:10 Completed NT PRO BNP AM.LAB Lab 08/24/21 04:00 Ordered POCT GLUCOSE Stat Lab 08/22/21 21:18 Completed POCT GLUCOSE Stat Lab 08/23/21 02:05 Completed POCT GLUCOSE Stat Lab 08/23/21 07:53 Completed POCT GLUCOSE Stat Lab 08/23/21 12:21 Completed PROCALCITONIN DAILY Lab 08/24/21 04:00 Ordered PROCALCITONIN Stat Lab 08/23/21 04:10 Completed TROPONIN Q3H Lab 08/22/21 13:30 Completed TROPONIN Q3H Lab 08/22/21 16:00 Completed TROPONIN Q3H Lab 08/22/21 19:30 Completed AMITRIPTYLINE HCL 50 mg Tab [AMITRIPTYLINE HCL 50 mg Med 08/22/21 22:00 Active Tablet] 50 mg PO BID Albuterol Common Canister [Ventolin Common Canister* Med 08/22/21 15:00 Discontinued ] 2 puff IH Q4HRT Amitriptyline HCl 25 mg [Amitriptyline 25 mg Tablet] Med 08/22/21 22:00 Active 25 mg PO BID Amitriptyline HCl [Amitriptyline HCl] Med 08/22/21 22:00 Discontinued 75 mg PO BID Amlodipine Besylate 5 mg [Norvasc 5 mg] Med 08/23/21 10:00 Active 10 mg PO DAILY Aspirin EC 81 mg [Ecotrin 81 mg] Med 08/23/21 10:00 Active 81 mg PO DAILY Aztreonam 1 gm [Azactam 1 gm] 1 gm Med 08/22/21 12:00 Discontinued NaCl 0.9% 100 ml Mini-Bag Plus [Sodium Chloride 100ML MINI-BAG PLUS] 100 ml IV Q6HT Aztreonam 1 gm [Azactam 1 gm] 1 gm Med 08/22/21 13:00 Active NaCl 0.9% 100 ml Mini-Bag Plus [Sodium Chloride 100ML MINI-BAG PLUS] 100 ml IV Q6HT Bumetanide 1 mg [Bumex 1 mg] Med 08/23/21 09:07 Discontinued 1 mg IV STAT ONE Buspirone HCl 5 mg [Buspar 5 mg] Med 08/22/21 22:00 Active 10 mg PO BID Chlorhexidine Gluconate Med 08/23/21 10:00 Discontinued 15 ml MM BID Chlorhexidine Gluconate [Peridex] Med 08/23/21 10:00 Active 15 ml MM BID Cisatracurium 20 mg/10 ml [Nimbex 20MG/10 Ml Vial ( Med 08/22/21 13:00 Discontinued HIGH RISK MED)] 10 mg IV ONCE ONE D5w 250 ml [Dextrose 5%/Water IV Soln. 250 ML] 180 ml Med 08/22/21 13:00 Active Cisatracurium 200 mg/20 ml [Nimbex 200MG/20 Ml MDV ( HIGH RISK MED)] 200 mg IV 3 mcg/kg/min Fenofibrate,Micronized 145 mg* [Tricor 145 MG] Med 08/23/21 10:00 Discontinued 145 mg PO DAILY Furosemide 40 mg [Lasix 40 MG] Med 08/23/21 10:00 Active 40 mg PO DAILY Gabapentin 300 mg [Neurontin 300 mg] Med 08/22/21 22:00 Active 300 mg PO TID Lanolin/Min Oil/Petrolat Wht [Lubrifresh P.M. 3.5 gm Med 08/23/21 10:00 Active Ointment] 1 gm OP Q12H Medication Intervention Med 08/22/21 13:45 Active 1 each MC .RN TO CHECK Metoprolol Succinate 100 mg [Toprol Xl 100 MG] Med 08/23/21 10:00 Active 100 mg PO DAILY Mirtazapine 30 mg [Remeron 30 mg] Med 08/22/21 22:00 Active 30 mg PO HS NaCl 0.9% 150 ml [Sodium Chloride 0.9% 150 ML] 120 ml Med 08/22/21 16:38 Active Fentanyl Citrate/Pf [Fentanyl 500 Mcg/10 ml Vial] 1,500 mcg IV 0.2 mcg/kg/hr Phenytoin Sod Extended 100 mg* [Dilantin 100 MG] Med 08/23/21 12:00 Active 100 mg PO NOON Phenytoin Sod Extended 100 mg* [Dilantin 100 MG] Med 08/22/21 22:00 Active 200 mg PO QPM Phenytoin Sod Extended 100 mg* [Dilantin 100 MG] Med 08/23/21 08:00 Active 300 mg PO BREAKFAST Phenytoin Sod Extended 100 mg* [Dilantin 100 MG] Med 08/22/21 13:30 Discontinued 600 mg PO UD Pramipexole Di-HCl 0.5 mg [Mirapex 0.5 MG Tablet] Med 08/22/21 22:00 Active 1 mg PO BID Sertraline HCl 50 mg [Zoloft 50 mg Tablet] Med 08/23/21 10:00 Active 100 mg PO DAILY Patient Care Notes (Last 24 hours) 08/23/21 10:51 Nursing Note by Beulah Ribeiro This nurse noted yellow colored ring on patient's 4th left finger. Ring removed and taped to inside of patient's medication container that is in the closet. Rose Foley CNA witnessed. Initialized on 08/23/21 10:51 - END OF NOTE 08/23/21 10:01 Case Management Note by Haydee Mauricio PATIENT CRITICALLY ILL- WILL HOLD DC PLANNING ASSESSMENT UNTIL PATIENT CLOSER TO DC Initialized on 08/23/21 10:01 - END OF NOTE 08/23/21 09:12 Nursing Note by Beulah Ribeiro Received call from Dr. Ibarra for update on patient. Lab values and assessment reported. Orders received for: procalcitonin now and if abnormal order another tomorrow AM, lactic acid now, nutrition consult to start tube feedings via OG, bumex 1mg IV x1 now, ensure CBC, CMP, BNP, chest x ray in AM Initialized on 08/23/21 09:12 - END OF NOTE 08/23/21 03:08 Nursing Note by Naz Young PRN tylenol suppository given for temp of 100.2 Initialized on 08/23/21 03:08 - END OF NOTE 08/22/21 16:22 Nursing Note by Demi East 08-22-[address] PULIDO ROUNDED ON PATIENT AND MADE MEDICATION CHANGES TAKEN TO PHARMACY. NURSE KIRSTIN ROUNDED WITH HIM. ANA MARIA Initialized on 08/22/21 16:22 - END OF NOTE 08/22/21 14:48 Respiratory Note by Jenny Hernandez 08/22 LATE ENTRY AT 730AM THIS AM I CALLED [facility] AND INFORMED THE NURSE THAT PATIENT WAS INTUBATED. I DOCUMENTED THE REFERENCE NUMBER ON FORM AND GAVE TO THE ER NURSE. PARVIZ Initialized on 08/22/21 14:48 - END OF NOTE 08/22/21 14:46 Respiratory Note by Jenny Hernandez i CALLED DR ALTMAN AND GAVE HIM PATIENT ABG, LAB, XRAY, SEDATION, AND ANTIBODICS AND INFORMATION ON WHY HE WAS ADMITTED. hE REQUESTED VENT BE INCREASED TO 20 AND TO LET HIM KNOW IF ANY QUESTIONS. PARVIZ Initialized on 08/22/21 14:46 - END OF NOTE Code(s): J96.01 - ACUTE RESPIRATORY FAILURE WITH HYPOXIA; J96.02 - ACUTE RESPIRATORY FAILURE WITH HYPERCAPNIA (2) Bilateral pneumonia Current Visit: Yes Status: Acute Qualifiers: Pneumonia type: due to Pneumococcus Lung location: lower lobe of lung Qualified Code(s): J13 - Pneumonia due to Streptococcus pneumoniae Code(s): J18.9 - PNEUMONIA, UNSPECIFIED ORGANISM
[2021-08-23] MEDS: Sodium Chloride 0.9% 1000 ML 1,000 ML IV SCH (12:59)
[2021-08-23] MEDS: Motrin 100 MG/5 ML NG PRN ×2 (14:20→22:39)
[2021-08-23] MEDS: REMERON 30 MG PO SCH (21:07)
[2021-08-24] MEDS: AZACTAM 1 GM*** 1 GM in Sodium Chloride 100ML MINI-BAG PLUS 100 ML IV SCH ×4 (00:08→17:00)
[2021-08-24] MEDS: Propofol 1000 mg/100 ml Bottle 100 ML IV PRN ×7 (00:11→23:18)
[2021-08-24] MEDS: FENTANYL 500 MCG/10 ML VIAL 1,500 MCG in Sodium Chloride 0.9% 150 ML 120 ML IV PRN ×2 (02:10→20:11)
[2021-08-24] MEDS: DUONEB 0.5-3 MG/3 ml Neb IH SCH ×5 (03:30→23:28)
[2021-08-24 05:35] LABS: A-aADO2 115; ABG HEMOGLOBIN 7.8; ABG POTASSIUM 3.8 (3.5-5.1); ARTERIAL BLD GAS O2 SATURATION 96.1 % (95-100); ARTERIAL BLOOD GAS BASE EXCESS 0.1 (-2.0-2.0); ARTERIAL BLOOD GAS FIO2 40 %; ARTERIAL BLOOD GAS PCO2 46 mmHg (35-45); ARTERIAL BLOOD GAS PO2 113 mmHg (75-100); ARTERIAL BLOOD GAS pH 7.36 (7.35-7.45); CARBOXYHEMOGLOBIN 1.5 % THgb (0.0-6.9); HGB O2 SAT 94.7 g/dF (94-100)
[2021-08-24 05:36] LABS: ABG SITE LEFT RADIAL
[2021-08-24 05:39] LABS: ALLEN TEST OK? YES
[2021-08-24 05:40] LABS: Hemoglobin 7.8 gm/dl (12.5-18.0); Mean Cell Volume 68.6 fl (78-100); Mean Corpuscular Hemoglobin 19.1 pg (26-32); Mean Corpuscular Hgb Concent. 27.9 g/dl (32-36); Mean Platelet Volume 9.5 fl (7.5-11.0); Platelet Count 266 K/mm3 (150-450); Red Blood Count 4.08 M/mm3 (4.1-5.6); Red Cell Distribution Width 22.4 % (11.5-14.0); White Blood Count 10.9 K/mm3 (4.0-10.5)
[2021-08-24 06:36] LABS: Slide Review YES
[2021-08-24] MEDS: Sodium Chloride 0.9% 1000 ML 1,000 ML IV SCH ×2 (07:24→07:36)
[2021-08-24 07:30] LABS: ALBUMIN 2.7 g/dL (3.5-5.0); ALKALINE PHOSPHATASE 87 U/L (38-126); ANION GAP 12.8 MEQ/L (5-15); BLOOD UREA NITROGEN 15 mg/dL (9-20); CHLORIDE 104 mmol/L (98-107); Calcium 7.8 mg/dL (8.4-10.2); Carbon Dioxide 23 mmol/L (22-30); Creatinine 1 0.59 mg/dL (0.66-1.25); EST GLOMERULAR FILTRATION RATE > 60.0 ML/MIN; Glucose 143 mg/dL (74-106); NT PRO BNP 241 pg/mL (0-900); SGOT/AST 26 U/L (17-59); SGPT/ALT 9 U/L (0-50); SODIUM 136 mmol/L (137-145)
[2021-08-24] MEDS: Nimbex 200MG/20 Ml MDV (HIGH RISK MED)** 200 MG in Dextrose 5%/Water IV Soln. 250 ML 18... IV PRN ×2 (07:36→22:59)
[2021-08-24] MEDS: Motrin 100 MG/5 ML NG PRN (07:37)
[2021-08-24] MEDS: Dilantin 100 MG PO SCH ×2 (07:37→13:09)
[2021-08-24] MEDS: ECOTRIN 81 MG PO SCH (07:39)
[2021-08-24] MEDS: Lubrifresh P.M. 3.5 gm Ointment OP SCH ×2 (07:39→21:57)
[2021-08-24] MEDS: ENOXAPARIN SODIUM SQ SCH (07:39)
[2021-08-24] MEDS: ZOLOFT 50 MG TABLET PO SCH (07:40)
[2021-08-24] MEDS: BUSPAR 5 MG PO SCH (07:40)
[2021-08-24] MEDS: PROTONIX 40 MG IV IV SCH (07:40)
[2021-08-24] MEDS: NORVASC 5 MG PO SCH (07:41)
[2021-08-24] MEDS: Toprol Xl 100 MG PO SCH (07:41)
[2021-08-24] MEDS: Levofloxacin 500MG/100ML D5W 500 MG/100 ML BAG IV SCH (07:41)
[2021-08-24] MEDS: AMITRIPTYLINE 25 MG TABLET PO SCH (07:41)
[2021-08-24] MEDS: PERIDEX MM SCH ×2 (07:41→21:56)
[2021-08-24] MEDS: Mirapex 0.5 MG Tablet PO SCH ×2 (07:41→21:49)
[2021-08-24] MEDS: NEURONTIN 300 MG PO SCH (07:41)
[2021-08-24] MEDS: Lasix 40 MG PO SCH (07:41)
--- NOTE | 2021-08-24 08:41 | XRAY ---
Indication: Pneumonia. Comparison: One day earlier. Portable chest again demonstrates moderate diffuse bilateral airspace disease. Interval increasing moderate right effusion/atelectasis with stable small left effusion. Heart not enlarged. Stable endotracheal and NG tubes in situ.
--- NOTE | 2021-08-24 11:15 | ECHO ---
Transthoracic echocardiographic examination and color Doppler was done on 08/23/2021. INDICATION: Hypertension, elevated BNP and shortness of breath. IMPRESSION: 1) NO REGIONAL WALL MOTION ABNORMALITY. ESTIMATED GLOBAL LEFT VENTRICULAR EJECTION FRACTION OF AROUND 55 TO 60%. 2) MILD LEFT VENTRICULAR HYPERTROPHY. The left ventricle is visualized and demonstrated adequate motion of all the segments. Estimated global left ventricular ejection fraction of about 55 to 60%. There is mild left ventricular hypertrophy. The mitral valve is seen and this opens adequately. No significant mitral regurgitation is seen. Left atrium is normal. The aortic valve opens adequately. The right side chambers appears to be normal.
[2021-08-24] MEDS ORDERED: PHARMACY DOSING REQUEST MC ONE (13:08)
--- NOTE | 2021-08-24 14:34 | PCM.NOTE ---
Date and Time: 08/24/21 1433 Subjective Assessment: last 24 hours events noted - Review of Systems Constitutional: No Fever, No Chills Eyes: No Symptoms Ears, Nose, & Throat: No Symptoms Respiratory: No Cough, No Short Of Breath Cardiac: No Chest Pain, No Edema, No Syncope Abdominal/Gastrointestinal: No Abdominal Pain, No Nausea, No Vomiting, No Diarrhea Genitourinary Symptoms: No Dysuria Musculoskeletal: No Back Pain, No Neck Pain Skin: No Rash Neurological: No Dizziness, No Focal Weakness, No Sensory Changes Psychological: No Symptoms Endocrine: No Symptoms Hematologic/Lymphatic: No Symptoms Immunological/Allergic: No Symptoms All Other Systems: Unable due to condition Objective Exam General Appearance: no apparent distress, alert Neurologic Exam: alert, oriented x 3, cooperative, normal mood/affect, nml cerebellar function, sensation nml, No motor deficits Skin Exam: normal color, warm, dry Eye Exam: PERRL, EOMI, eyes nml inspection Ears, Nose, Throat Exam: normal ENT inspection, pharynx normal, moist mucous me mbranes Neck Exam: normal inspection, non-tender, supple, full range of motion Respiratory Exam: diminished breath sounds, crackles/rales, rhonchi, wheezing, No respiratory distress Cardiovascular Exam: regular rate/rhythm, normal heart sounds Gastrointestinal/Abdomen Exam: soft, No tenderness, No mass Extremity Exam: normal inspection, normal range of motion Back Exam: normal inspection, normal range of motion, No CVA tenderness, No vertebral tenderness Male Genitalia Exam: deferred Rectal Exam: deferred OBJECTIVE DATA Vital Signs: Vital Signs - 24 hr Temp Pulse Resp BP BP BP Pulse Ox 08/24/21 13:51 98 F 85 20 97/67 99 08/24/21 13:17 82 08/24/21 13:00 97.9 F 81 20 92/63 99 08/24/21 12:00 97.9 F 86 22 93/59 100 08/24/21 11:17 81 08/24/21 11:07 80 20 98 08/24/21 11:00 97.7 F 81 20 89/61 97 08/24/21 10:11 85 08/24/21 09:55 98.2 F 85 20 98/61 100 08/24/21 09:00 98.2 F 85 20 94/61 08/24/21 08:56 91 H 20 08/24/21 08:55 90 20 08/24/21 08:04 112 H 20 08/24/21 07:59 98.8 F 112 H 20 97 08/24/21 07:03 106 H 20 97 08/24/21 07:00 98.8 F 108 H 20 135/80 97 08/24/21 06:00 98.8 F 108 H 20 112/67 97 08/24/21 05:00 99 F 105 H 20 124/80 97 08/24/21 04:00 98.4 F 98 H 20 103/63 97 08/24/21 03:30 93 H 20 97 08/24/21 03:00 98.2 F 92 H 20 101/66 97 08/24/21 02:00 98.1 F 94 H 20 97/64 98 08/24/21 01:00 98.4 F 95 H 20 93/62 94 L 08/24/21 00:01 103 H 08/24/21 00:00 99.0 F 103 H 20 103/61 98 08/23/21 23:20 115 H 20 100 08/23/21 23:00 100.2 F 113 H 20 112/71 100 08/23/21 22:00 99.9 F 106 H 20 146/87 99 08/23/21 21:00 99.0 F 92 H 20 119/73 100 08/23/21 20:00 98.6 F 93 H 20 102/58 99 08/23/21 19:47 89 08/23/21 19:00 98.6 F 89 20 97/62 100 08/23/21 18:39 93 H 20 99 08/23/21 18:00 98.6 F 94 H 20 97/54 99 08/23/21 17:43 93 H 20 97/54 08/23/21 17:13 94 H 20 99/54 08/23/21 17:00 98.8 F 94 H 20 99/54 97 08/23/21 16:00 99.3 F 94 H 20 92/52 98 08/23/21 15:40 100 H 24 100 08/23/21 15:00 100.2 F 101 H 20 89/48 97 Pain Assessment - Last Documented Pain Intensity 0 Pain Scale Used 0-10 Pain Scale Intake and Output: Intake & Output 08/22/21 08/23/21 08/24/21 08/25/21 11:59 11:59 11:59 11:59 Intake Total 7595 8614 3484 60 Output Total 971 2266 3020 Balance 876 7799 871 60 Weight 112 kg 125 kg Lab Results: Lab Results-Last 24 Hours 08/23/21 08/23/21 08/24/21 Range/Units 18:16 20:20 04:30 WBC 10.9 H (4.0-10.5) K/mm3 RBC 4.08 L (4.1-5.6) M/mm3 Hgb 7.8 L (12.5-18.0) gm/dl Hct 28.0 L (42-50) % MCV 68.6 L (78-100) fl MCH 19.1 L (26-32) pg MCHC 27.9 L (32-36) g/dl RDW 22.4 H (11.5-14.0) % Plt Count 266 (150-450) K/mm3 MPV 9.5 (7.5-11.0) fl Puncture Site pCO2 (35-45) mmHg pO2 (75-100) mmHg Base Excess (-2.0-2.0) O2 Saturation (94-100) g/dF ABG pH (7.35-7.45) ABG HCO3 (22-28) ABG O2 Sat (Measured) (95-100) % Elian Test A-a Gradient a/A Ratio Hemoglobin Carboxyhemoglobin (0.0-6.9) % THgb Methemoglobin (1.4-1.5) % Temperature C POC O2 Flow Rate % Sodium (137-145) mmol/L Potassium (3.5-5.1) mmol/L Chloride (98-107) mmol/L Carbon Dioxide (22-30) mmol/L Anion Gap (5-15) MEQ/L BUN (9-20) mg/dL Creatinine (0.66-1.25) mg/dL Estimated GFR ML/MIN Glucose (74-106) mg/dL POC Glucometer 114 H 135 H (74 to 106) mg/dL Calcium (8.4-10.2) mg/dL Total Bilirubin (0.2-1.3) mg/dL AST (17-59) U/L ALT (0-50) U/L Alkaline Phosphatase (38-126) U/L NT-Pro-B Natriuret Pep (0-900) pg/mL Serum Total Protein (6.3-8.2) g/dL Albumin (3.5-5.0) g/dL Procalcitonin (0.030-0.080) ng/mL Slides for Path Review YES 08/24/21 08/24/21 08/24/21 Range/Units 04:30 04:30 05:30 WBC (4.0-10.5) K/mm3 RBC (4.1-5.6) M/mm3 Hgb (12.5-18.0) gm/dl Hct (42-50) % MCV (78-100) fl MCH (26-32) pg MCHC (32-36) g/dl RDW (11.5-14.0) % Plt Count (150-450) K/mm3 MPV (7.5-11.0) fl Puncture Site LEFT RADIAL pCO2 46 H (35-45) mmHg pO2 113 H (75-100) mmHg Base Excess 0.1 (-2.0-2.0) O2 Saturation 94.7 (94-100) g/dF ABG pH 7.36 (7.35-7.45) ABG HCO3 26.0 (22-28) ABG O2 Sat (Measured) 96.1 (95-100) % Elian Test YES A-a Gradient 115 a/A Ratio 0.50 Hemoglobin 7.8 L* Carboxyhemoglobin 1.5 (0.0-6.9) % THgb Methemoglobin 0.0 L (1.4-1.5) % Temperature 37.0 C POC O2 Flow Rate 40 % Sodium 136 L (137-145) mmol/L Potassium 4.0 3.8 (3.5-5.1) mmol/L Chloride 104 (98-107) mmol/L Carbon Dioxide 23 (22-30) mmol/L Anion Gap 12.8 (5-15) MEQ/L BUN 15 (9-20) mg/dL Creatinine 0.59 L (0.66-1.25) mg/dL Estimated GFR > 60.0 ML/MIN Glucose 143 H (74-106) mg/dL POC Glucometer (74 to 106) mg/dL Calcium 7.8 L (8.4-10.2) mg/dL Total Bilirubin 0.60 (0.2-1.3) mg/dL AST 26 (17-59) U/L ALT 9 (0-50) U/L Alkaline Phosphatase 87 (38-126) U/L NT-Pro-B Natriuret Pep 241 (0-900) pg/mL Serum Total Protein 6.0 L (6.3-8.2) g/dL Albumin 2.7 L (3.5-5.0) g/dL Procalcitonin 0.930 H (0.030-0.080) ng/mL Slides for Path Review 08/24/21 Range/Units 05:45 WBC (4.0-10.5) K/mm3 RBC (4.1-5.6) M/mm3 Hgb (12.5-18.0) gm/dl Hct (42-50) % MCV (78-100) fl MCH (26-32) pg MCHC (32-36) g/dl RDW (11.5-14.0) % Plt Count (150-450) K/mm3 MPV (7.5-11.0) fl Puncture Site pCO2 (35-45) mmHg pO2 (75-100) mmHg Base Excess (-2.0-2.0) O2 Saturation (94-100) g/dF ABG pH (7.35-7.45) ABG HCO3 (22-28) ABG O2 Sat (Measured) (95-100) % Elian Test A-a Gradient a/A Ratio Hemoglobin Carboxyhemoglobin (0.0-6.9) % THgb Methemoglobin (1.4-1.5) % Temperature C POC O2 Flow Rate % Sodium (137-145) mmol/L Potassium (3.5-5.1) mmol/L Chloride (98-107) mmol/L Carbon Dioxide (22-30) mmol/L Anion Gap (5-15) MEQ/L BUN (9-20) mg/dL Creatinine (0.66-1.25) mg/dL Estimated GFR ML/MIN Glucose (74-106) mg/dL POC Glucometer 138 H (74 to 106) mg/dL Calcium (8.4-10.2) mg/dL Total Bilirubin (0.2-1.3) mg/dL AST (17-59) U/L ALT (0-50) U/L Alkaline Phosphatase (38-126) U/L NT-Pro-B Natriuret Pep (0-900) pg/mL Serum Total Protein (6.3-8.2) g/dL Albumin (3.5-5.0) g/dL Procalcitonin (0.030-0.080) ng/mL Slides for Path Review Radiology Exams: Radiology Procedures Category Date Time Status CHEST 1 VIEW (PORTABLE) DAILY Exams 08/24/21 07:00 Completed ECHO W/2D AND DOPPLER [US] Routine Exams 08/23/21 10:43 Draft Portable Chest [CHEST 1 VIEW (PORTABLE)] DAILY Exams 08/25/21 05:00 Ordered Portable Chest [CHEST 1 VIEW (PORTABLE)] DAILY Exams 08/26/21 05:00 Ordered Portable Chest [CHEST 1 VIEW (PORTABLE)] DAILY Exams 08/27/21 05:00 Ordered Portable Chest [CHEST 1 VIEW (PORTABLE)] DAILY Exams 08/28/21 05:00 Ordered Portable Chest [CHEST 1 VIEW (PORTABLE)] Routine Exams 08/23/21 08:00 Completed Multi-Disciplinary Progress Notes: Multi-Disciplinary Progress Notes 08/24/21 13:57 Nutrition Note by Brenda Alba F/u Note: Note Feeding @ goal rate of 55mls/hour no problems noted. adm weight 128.7kg; current weight 125kg. Labs 08/24= Na 136, Cr 0.59, glu 143, alb 2.7, hgb 7.8, hct 28.0, mcv 68.6, +fluid balance. Will con't to monitor and f/u prn. TBRIANA Chavez Initialized on 08/24/21 13:57 - END OF NOTE Assessment/Plan (1) Acute respiratory failure with hypoxia and hypercapnia Current Visit: Yes Status: Acute Assessment & Plan: Chief Complaint Diagnosis severe shortness of breath for 1-2 days Allergies Allergy/AdvReac Type Severity Reaction Status Date / Time codeine Allergy Severe stop Verified 08/22/21 07:29 breathing hydrocodone Allergy Severe stop Verified 08/22/21 07:29 breathing morphine Allergy Severe stop Verified 08/22/21 07:29 breathing Penicillins Allergy Verified 08/22/21 07:29 Vital Signs (Last 24 hours) Temp Pulse Resp BP BP BP Pulse Ox 08/24/21 13:51 98 F 85 20 97/67 99 08/24/21 13:17 82 08/24/21 13:00 97.9 F 81 20 92/63 99 08/24/21 12:00 97.9 F 86 22 93/59 100 08/24/21 11:17 81 08/24/21 11:07 80 20 98 08/24/21 11:00 97.7 F 81 20 89/61 97 08/24/21 10:11 85 08/24/21 09:55 98.2 F 85 20 98/61 100 08/24/21 09:00 98.2 F 85 20 94/61 08/24/21 08:56 91 H 20 08/24/21 08:55 90 20 08/24/21 08:04 112 H 20 08/24/21 07:59 98.8 F 112 H 20 97 08/24/21 07:03 106 H 20 97 08/24/21 07:00 98.8 F 108 H 20 135/80 97 08/24/21 06:00 98.8 F 108 H 20 112/67 97 08/24/21 05:00 99 F 105 H 20 124/80 97 08/24/21 04:00 98.4 F 98 H 20 103/63 97 08/24/21 03:30 93 H 20 97 08/24/21 03:00 98.2 F 92 H 20 101/66 97 08/24/21 02:00 98.1 F 94 H 20 97/64 98 08/24/21 01:00 98.4 F 95 H 20 93/62 94 L 08/24/21 00:01 103 H 08/24/21 00:00 99.0 F 103 H 20 103/61 98 08/23/21 23:20 115 H 20 100 08/23/21 23:00 100.2 F 113 H 20 112/71 100 08/23/21 22:00 99.9 F 106 H 20 146/87 99 08/23/21 21:00 99.0 F 92 H 20 119/73 100 08/23/21 20:00 98.6 F 93 H 20 102/58 99 08/23/21 19:47 89 08/23/21 19:00 98.6 F 89 20 97/62 100 08/23/21 18:39 93 H 20 99 08/23/21 18:00 98.6 F 94 H 20 97/54 99 08/23/21 17:43 93 H 20 97/54 08/23/21 17:13 94 H 20 99/54 08/23/21 17:00 98.8 F 94 H 20 99/54 97 08/23/21 16:00 99.3 F 94 H 20 92/52 98 08/23/21 15:40 100 H 24 100 08/23/21 15:00 100.2 F 101 H 20 89/48 97 Home Medications Medication Instructions Recorded Confirmed Last Taken Type Albuterol Sulfate [Proair Hfa] 1 inh PO Q46H 08/22/21 08/22/21 Unknown History Aspirin EC 81 mg [Ecotrin 81 81 mg PO DAILY 08/22/21 08/22/21 Unknown History mg] Buspirone HCl 5 mg [Buspar 5 10 mg PO BID 08/22/21 08/22/21 Unknown History mg] Furosemide 40 mg [Lasix 40 40 mg PO DAILY 08/22/21 08/22/21 Unknown History MG] Mirtazapine 30 mg [Remeron 30 30 mg PO HS 08/22/21 08/22/21 Unknown History mg] Pramipexole Di-HCl [Pramipexole 1 mg PO BID 08/22/21 08/22/21 Unknown History Dihydrochloride] Sertraline HCl [Zoloft] 100 mg PO DAILY 08/22/21 08/22/21 Unknown History Current Medications Generic Name Dose Route Start Last Admin Trade Name Freq PRN Reason Stop Dose Admin Acetaminophen 650 mg 08/22/21 10:30 08/23/21 12:59 Acetaminophen 650 Mg Supp.Rect AL 09/21/21 10:29 650 mg Q4H PRN PRN Administration PAIN AND/OR FEVER Albuterol/Ipratropium 3 ml 08/22/21 11:00 08/24/21 11:01 Ipratropium/Albuterol Sulfate 3 Ml Ampul.Neb IH 09/21/21 10:59 3 ml Q4HRT JAY Administration Amlodipine Besylate 10 mg 08/23/21 10:00 08/24/21 07:41 Amlodipine Besylate 5 Mg Tablet PO 09/22/21 09:59 10 mg DAILY JAY Administration Artificial Tears 1 gm 04/12/22 10:00 08/24/21 07:39 Lanolin/Min Oil/Petrolat Wht 3.5 Gm Tube OP 09/22/21 09:59 1 gm Q12H JAY Administration Chlorhexidine Gluconate 15 ml 08/23/21 10:00 08/24/21 07:41 Chlorhexidine Gluconate 15 Ml Mouthwash MM 09/22/21 09:59 15 ml BID JAY Administration Enoxaparin Sodium 40 mg 08/25/21 10:00 Enoxaparin Sodium 40 Mg/0.4 Ml Syringe SQ 09/24/21 09:59 DAILY JAY Fosphenytoin Sodium 300 mg 08/24/21 22:00 Fosphenytoin Na 100mg/2 Ml Vial IV 09/23/21 21:59 BID JAY Furosemide 40 mg 08/25/21 10:00 Furosemide 40 Mg/4 Ml Vial IV 09/24/21 09:59 DAILY JAY Propofol 100 mls @ 10.08 mls/hr 08/22/21 07:25 08/24/21 13:17 Propofol 1000 Mg/100 Ml Bottle IV 09/21/21 07:24 40 mcg/kg/min .Q9H56M PRN 26.88 mls/hr SEDATION FOR VENT Titration Protocol 15 MCG/KG/MIN Sodium Chloride 1,000 mls @ 50 mls/hr 08/22/21 10:30 08/24/21 07:36 Sodium Chloride 0.9% 1000 Ml IV 09/21/21 10:29 50 mls/hr .Q20H JAY Administration Levofloxacin/Dextrose 500 mg in 100 mls @ 100 mls/hr 08/22/21 10:30 08/24/21 07:41 Levofloxacin 500mg/100ml D5w IV 09/21/21 10:29 100 mls/hr Q24H10 JAY Administration Cisatracurium Besylate 200 mg/ 200 mls @ 20.16 mls/hr 08/22/21 13:00 08/24/21 13:17 Dextrose IV 09/21/21 12:59 2 mcg/kg/min .Q9H56M PRN 13.44 mls/hr PARALYSIS Titration Protocol 3 MCG/KG/MIN Aztreonam 1 gm/ Sodium 100 mls @ 200 mls/hr 08/22/21 13:00 08/24/21 11:27 Chloride IV 08/26/21 12:59 200 mls/hr Q6HT JAY Administration Fentanyl Citrate 1,500 mcg/ 150 mls @ 2.5 mls/hr 08/22/21 16:38 08/24/21 13:17 Sodium Chloride IV 09/21/21 16:37 0.7 mcg/kg/hr .Q24H PRN 8.75 mls/hr PAIN Titration Protocol 0.2 MCG/KG/HR Ibuprofen 400 mg 08/23/21 14:14 08/24/21 07:37 Ibuprofen 100 Mg/5 Ml Bottle NG 09/22/21 14:13 400 mg Q6H PRN PRN Administration PAIN AND/OR FEVER Metoprolol Tartrate 50 mg 08/25/21 10:00 Metoprolol Tartrate 50 Mg Tablet PO 09/24/21 09:59 BID [facility] Miscellaneous Information 1 each 08/22/21 13:45 Medication Intervention 1 Each Each 09/21/21 13:44 .RN TO CHECK JAY Ondansetron HCl 4 mg 08/22/21 10:30 Ondansetron Hcl 4 Mg/2 Ml Vial IV 09/21/21 10:29 Q6H PRN PRN NAUSEA/VOMITING Pantoprazole Sodium 40 mg 08/22/21 10:30 08/24/21 07:40 Pantoprazole 40 Mg Vial IV 09/21/21 10:29 40 mg Q24H JAY Administration Pramipexole Dihydrochloride 1 mg 08/22/21 22:00 08/24/21 07:41 Pramipexole Di-Hcl 0.5 Mg Tab PO 09/21/21 21:59 1 mg BID JAY Administration Discontinued Medications Generic Name Dose Route Start Last Admin Trade Name Freq PRN Reason Stop Dose Admin Acetaminophen Confirm 08/22/21 07:05 Acetaminophen 325mg Suppository Administered 08/22/21 07:06 Dose 650 mg .ROUTE .STK-MED ONE Acetaminophen 650 mg 08/22/21 08:04 08/22/21 07:09 Acetaminophen 325mg Suppository AL 08/22/21 08:05 650 mg STAT STA Administration Albuterol Sulfate 2 puff 08/22/21 15:00 Albuterol Common Canister Inhaler IH 09/21/21 14:59 Q4HRT [facility] Albuterol/Ipratropium Confirm 08/22/21 10:05 Ipratropium/Albuterol Sulfate 3 Ml Ampul.Neb Administered 08/22/21 10:06 Dose 3 ml IH .STK-MED ONE Albuterol/Ipratropium 3 ml 08/22/21 06:45 Ipratropium/Albuterol Sulfate 3 Ml Ampul.Neb IH 08/22/21 06:46 ONCE ONE Amitriptyline HCl 25 mg 08/22/21 22:00 08/24/21 07:41 Amitriptyline Hcl 25 Mg Tablet PO 09/21/21 21:59 25 mg BID JAY Administration Amitriptyline HCl 50 mg 08/22/21 22:00 08/24/21 07:39 Amitriptyline Hcl 50 Mg Tablet PO 09/21/21 21:59 50 mg BID JAY Administration Aspirin 81 mg 08/23/21 10:00 08/24/21 07:39 Aspirin 81 Mg Tablet.Ec PO 09/22/21 09:59 81 mg DAILY JAY Administration Bumetanide 1 mg 08/23/21 09:07 08/23/21 09:33 Bumetanide 0.25 Mg/Ml 4ml Vial IV 08/23/21 09:08 1 mg STAT ONE Administration Buspirone HCl 10 mg 08/22/21 22:00 08/24/21 07:40 Buspirone Hcl 5 Mg Tablet PO 09/21/21 21:59 10 mg BID JAY Administration Chlorhexidine Gluconate 15 ml 08/23/21 10:00 Chlorhexidine Gluconate 473 Ml Mouthwash MM 09/22/21 09:59 BID JAY Cisatracurium Besylate 10 mg 08/22/21 13:00 08/22/21 12:50 Cisatracurium 20 Mg/10 Ml Vial IV 08/22/21 13:01 10 mg ONCE ONE Administration Enoxaparin Sodium 40 mg 08/22/21 10:30 08/24/21 07:39 Enoxaparin Sodium 40 Mg/0.4 Ml Syringe SQ 09/21/21 10:29 40 mg DAILY JAY Administration Etomidate 20 mg 08/22/21 07:00 08/22/21 06:46 Etomidate 20 Mg/10 Ml Amp IV 08/22/21 07:01 20 mg STAT STA Administration Fenofibrate 145 mg 08/23/21 10:00 Fenofibrate,Micronized 145 Mg Tablet PO 09/22/21 09:59 DAILY JAY Fentanyl Citrate 100 mcg 08/22/21 08:02 08/22/21 08:04 Fentanyl Citrate 100 Mcg/2 Ml* Vial IV 08/22/21 08:03 100 mcg STAT ONE Administration Fentanyl Citrate Confirm 08/22/21 08:03 Fentanyl Citrate 100 Mcg/2 Ml* Vial Administered 08/22/21 08:04 Dose 100 mcg .ROUTE .STK-MED ONE Furosemide 40 mg 08/23/21 10:00 08/24/21 07:41 Furosemide 40 Mg Tablet PO 09/22/21 09:59 40 mg DAILY JAY Administration Gabapentin 300 mg 08/22/21 22:00 08/24/21 07:41 Gabapentin 300 Mg Capsule PO 09/21/21 21:59 300 mg TID JAY Administration Levofloxacin/Dextrose 750 mg in 150 mls @ 100 mls/hr 08/22/21 06:57 08/22/21 07:30 Levofloxacin 750mg/150ml D5w IV 08/22/21 08:26 100 ml/hr STAT STA 100 mls/hr Administration Aztreonam 2 gm/ Sodium 100 mls @ 200 mls/hr 08/22/21 06:58 08/22/21 08:47 Chloride IV 08/22/21 07:27 200 mls/hr STAT ONE Administration Rocuronium [place] 100 mg/ 100 mls @ 33.6 mls/hr 08/22/21 07:25 08/22/21 07:14 Sodium Chloride IV 08/22/21 13:00 5 mcg/kg/min .Q2H59M PRN 33.6 mls/hr PARALYSIS FOR VENT Administration Protocol 5 MCG/KG/MIN Levofloxacin/Dextrose Confirm 08/22/21 07:29 Levofloxacin 750mg/150ml D5w Administered 08/22/21 07:30 Dose 750 mg in 150 mls @ ud IV .STK-MED ONE Sodium Chloride 1,000 mls @ 50 mls/hr 08/22/21 08:15 08/22/21 06:41 Sodium Chloride 0.9% 1000 Ml IV 09/21/21 08:14 50 mls/hr .Q20H JAY Administration Sodium Chloride 1,000 mls @ 250 mls/hr 08/22/21 08:15 08/22/21 08:11 Sodium Chloride 0.9% 1000 Ml IV 09/21/21 08:14 250 mls/hr .Q4H JAY Administration Aztreonam 1 gm/ Sodium 100 mls @ 200 mls/hr 08/22/21 12:00 08/22/21 17:27 Chloride IV 08/25/21 11:59 Not Given Q6HT JAY Metoprolol Succinate 100 mg 08/23/21 10:00 08/24/21 07:41 Metoprolol Succinate 100 Mg Tablet.Sa PO 09/22/21 09:59 100 mg DAILY JAY Administration Mirtazapine 30 mg 08/22/21 22:00 08/23/21 21:07 Mirtazapine 30 Mg Tablet PO 09/21/21 21:59 30 mg HS JAY Administration Non-Formulary Medication 1 each 08/22/21 10:46 08/22/21 15:14 Pharmacy Dosing Request 08/22/21 10:47 1 each STAT ONE Administration Non-Formulary Medication 75 mg 08/22/21 22:00 Amitriptyline Hcl [Amitriptyline Hcl] PO 09/21/21 21:59 BID JAY Non-Formulary Medication 1 each 08/24/21 13:08 08/24/21 14:12 Pharmacy Dosing Request 08/24/21 13:09 1 each STAT ONE Administration Phenytoin Sodium 600 mg 08/22/21 13:30 Phenytoin Sodium Extended 100 Mg Capsule PO 09/21/21 13:29 UD JAY Phenytoin Sodium 300 mg 08/23/21 08:00 08/24/21 07:37 Phenytoin Sodium Extended 100 Mg Capsule PO 09/22/21 07:59 300 mg BREAKFAST JAY Administration Phenytoin Sodium 100 mg 08/23/21 12:00 08/24/21 13:09 Phenytoin Sodium Extended 100 Mg Capsule PO 09/22/21 11:59 Not Given NOON JAY Phenytoin Sodium 200 mg 08/22/21 22:00 08/23/21 21:06 Phenytoin Sodium Extended 100 Mg Capsule PO 09/21/21 21:59 200 mg QPM JAY Administration Propofol 150 mg 08/22/21 07:00 08/22/21 06:54 Propofol 10 Mg/Ml 20ml Vial IV 08/22/21 07:01 150 mg STAT STA Administration Rocuronium [place] 100 mg 08/22/21 07:25 08/22/21 06:56 Rocuronium [place] 100 Mg/10ml Vial IV 08/22/21 07:26 100 mg STAT STA Administration Sertraline HCl 100 mg 08/23/21 10:00 08/24/21 07:40 Sertraline Hcl 50 Mg Tab PO 09/22/21 09:59 100 mg DAILY JAY Administration Succinylcholine Chloride 150 mg 08/22/21 06:50 08/22/21 06:46 Succinylcholine Chloride 200mg/10 Ml Vial IV 08/22/21 06:51 150 mg STAT STA Administration Intake & Output (Last 24 hours) 08/22/21 08/23/21 08/24/21 08/25/21 11:59 11:59 11:59 11:59 Intake Total 1300 3506 3864 60 Output Total 425 1435 3020 Balance 875 2071 844 60 Weight 112 kg 125 kg Microbiology Results (Last 24 hours) 08/22/21 06:56 Clean Catch Midstream Urine Culture - Final NO GROWTH 08/22/21 07:07 Blood Blood Culture Gram Stain - Pending 08/22/21 07:07 Blood Blood Culture - Preliminary NO GROWTH TO DATE 08/22/21 07:00 Blood Blood Culture Gram Stain - Pending 08/22/21 07:00 Blood Blood Culture - Preliminary NO GROWTH TO DATE Laboratory Results (Last 24 hours) 08/24/21 08/24/21 08/24/21 05:45 05:30 04:30 WBC RBC Hgb Hct MCV MCH MCHC RDW Plt Count MPV Puncture Site LEFT RADIAL pCO2 46 H pO2 113 H Base Excess 0.1 O2 Saturation 94.7 ABG pH 7.36 ABG HCO3 26.0 ABG O2 Sat (Measured) 96.1 Elian Test YES A-a Gradient 115 a/A Ratio 0.50 Hemoglobin 7.8 L* Carboxyhemoglobin 1.5 Methemoglobin 0.0 L Temperature 37.0 POC O2 Flow Rate 40 Sodium Potassium 3.8 Chloride Carbon Dioxide Anion Gap BUN Creatinine Estimated GFR Glucose POC Glucometer 138 H Calcium Total Bilirubin AST ALT Alkaline Phosphatase NT-Pro-B Natriuret Pep Serum Total Protein Albumin Procalcitonin 0.930 H Slides for Path Review 08/24/21 08/24/21 08/23/21 04:30 04:30 20:20 WBC 10.9 H RBC 4.08 L Hgb 7.8 L Hct 28.0 L MCV 68.6 L MCH 19.1 L MCHC 27.9 L RDW 22.4 H Plt Count 266 MPV 9.5 Puncture Site pCO2 pO2 Base Excess O2 Saturation ABG pH ABG HCO3 ABG O2 Sat (Measured) Elian Test A-a Gradient a/A Ratio Hemoglobin Carboxyhemoglobin Methemoglobin Temperature POC O2 Flow Rate Sodium 136 L Potassium 4.0 Chloride 104 Carbon Dioxide 23 Anion Gap 12.8 BUN 15 Creatinine 0.59 L Estimated GFR > 60.0 Glucose 143 H POC Glucometer 135 H Calcium 7.8 L Total Bilirubin 0.60 AST 26 ALT 9 Alkaline Phosphatase 87 NT-Pro-B Natriuret Pep 241 Serum Total Protein 6.0 L Albumin 2.7 L Procalcitonin Slides for Path Review YES 08/23/21 18:16 WBC RBC Hgb Hct MCV MCH MCHC RDW Plt Count MPV Puncture Site pCO2 pO2 Base Excess O2 Saturation ABG pH ABG HCO3 ABG O2 Sat (Measured) Elian Test A-a Gradient a/A Ratio Hemoglobin Carboxyhemoglobin Methemoglobin Temperature POC O2 Flow Rate Sodium Potassium Chloride Carbon Dioxide Anion Gap BUN Creatinine Estimated GFR Glucose POC Glucometer 114 H Calcium Total Bilirubin AST ALT Alkaline Phosphatase NT-Pro-B Natriuret Pep Serum Total Protein Albumin Procalcitonin Slides for Path Review Orders (Last 24 hours) Category Date Time Status CHEST 1 VIEW (PORTABLE) DAILY Exams 08/24/21 07:00 Completed Portable Chest [CHEST 1 VIEW (PORTABLE)] DAILY Exams 08/25/21 05:00 Ordered Portable Chest [CHEST 1 VIEW (PORTABLE)] DAILY Exams 08/26/21 05:00 Ordered Portable Chest [CHEST 1 VIEW (PORTABLE)] DAILY Exams 08/27/21 05:00 Ordered Portable Chest [CHEST 1 VIEW (PORTABLE)] DAILY Exams 08/28/21 05:00 Ordered ABG [ARTERIAL BLOOD GASES] DAILY Lab 08/24/21 05:30 Completed ABG [ARTERIAL BLOOD GASES] DAILY Lab 08/25/21 05:00 Ordered ABG [ARTERIAL BLOOD GASES] DAILY Lab 08/26/21 05:00 Ordered ABG [ARTERIAL BLOOD GASES] DAILY Lab 08/27/21 05:00 Ordered CBC AM.LAB Lab 08/24/21 04:30 Completed CBC W DIFF AM.LAB Lab 08/25/21 04:00 Ordered CBC W DIFF AM.LAB Lab 08/26/21 04:00 Ordered CBC W DIFF AM.LAB Lab 08/27/21 04:00 Ordered CBC W DIFF AM.LAB Lab 08/28/21 04:00 Ordered CBC W DIFF AM.LAB Lab 08/29/21 04:00 Ordered CMP AM.LAB Lab 08/24/21 04:30 Completed CMP AM.LAB Lab 08/25/21 04:00 Ordered CMP AM.LAB Lab 08/26/21 04:00 Ordered CMP AM.LAB Lab 08/27/21 04:00 Ordered CMP AM.LAB Lab 08/28/21 04:00 Ordered CMP AM.LAB Lab 08/29/21 04:00 Ordered MAG [MAGNESIUM] AM.LAB Lab 08/25/21 04:00 Ordered NT PRO BNP AM.LAB Lab 08/24/21 04:30 Completed PHENYTOIN [Dilantin(Phenytoin)] Urgent Lab 08/26/21 06:00 Ordered POCT GLUCOSE Stat Lab 08/23/21 18:16 Completed POCT GLUCOSE Stat Lab 08/23/21 20:20 Completed POCT GLUCOSE Stat Lab 08/24/21 05:45 Completed PROCALCITONIN DAILY Lab 08/24/21 04:30 Completed PROCALCITONIN Routine Lab 08/25/21 05:00 Ordered Enoxaparin Sodium [Enoxaparin Sodium] Med 08/25/21 10:00 Active 40 mg SQ DAILY Fosphenytoin Na 100Mg/2 ml [Fosphenytoin Sodium] Med 08/24/21 22:00 Active 300 mg IV BID Furosemide 40 mg/4 ml [Lasix 40 MG/4 ML] Med 08/25/21 10:00 Active 40 mg IV DAILY Ibuprofen 100 mg/5 ml [Motrin 100 MG/5 ML] Med 08/23/21 14:14 Active 400 mg NG Q6H PRN PRN Metoprolol Tartrate 50 mg [Lopressor 50 MG] Med 08/25/21 10:00 Active 50 mg PO BID Pharmacy Dosing Request Med 08/24/21 13:08 Discontinued 1 each STAT ONE Patient Care Notes (Last 24 hours) 08/24/21 13:57 Nutrition Note by Brenda Alba F/cecilia Note: Note Feeding @ goal rate of 55mls/hour no problems noted. adm weight 128.7kg; current weight 125kg. Labs 08/24= Na 136, Cr 0.59, glu 143, alb 2.7, hgb 7.8, hct 28.0, mcv 68.6, +fluid balance. Will con't to monitor and f/u prn. BRIANA Craig Initialized on 08/24/21 13:57 - END OF NOTE 08/23/21 22:43 Nursing Note by Naz Young PRN motrin given for temp of 100.2. Room cooled, sheet removed. HR up to 118 as temp increased. Initialized on 08/23/21 22:43 - END OF NOTE 08/23/21 21:40 Nursing Note by Naz Young Patient's dtr, Sena, called for update. Update given. Please note that daughter was given the last 4 digits of the J number as the passcode, which is [id number], instead of the last 4 of the M number. Initialized on 08/23/21 21:40 - END OF NOTE 08/23/21 14:36 Nursing Note by Beulah Ribeiro Patient's daughter Sena came to visit patient. Let her know yellow band had been taken off patient and placed in medication container. Sena took medic ation container to her home she shares with patient. Initialized on 08/23/21 14:36 - END OF NOTE Code(s): J96.01 - ACUTE RESPIRATORY FAILURE WITH HYPOXIA; J96.02 - ACUTE RESPIRATORY FAILURE WITH HYPERCAPNIA (2) Bilateral pneumonia Current Visit: Yes Status: Acute Qualifiers: Pneumonia type: due to Pneumococcus Lung location: lower lobe of lung Qualified Code(s): J13 - Pneumonia due to Streptococcus pneumoniae Code(s): J18.9 - PNEUMONIA, UNSPECIFIED ORGANISM
[2021-08-24] MEDS: FOSPHENYTOIN SODIUM IV SCH (21:49)
[2021-08-25] MEDS: AZACTAM 1 GM*** 1 GM in Sodium Chloride 100ML MINI-BAG PLUS 100 ML IV SCH ×5 (00:08→23:15)
[2021-08-25] MEDS: Propofol 1000 mg/100 ml Bottle 100 ML IV PRN ×6 (02:05→22:40)
[2021-08-25] MEDS: DUONEB 0.5-3 MG/3 ml Neb IH SCH ×7 (03:24→22:58)
[2021-08-25 05:31] LABS: Hemoglobin 7.8 gm/dl (12.5-18.0); Mean Cell Volume 68.3 fl (78-100); Mean Corpuscular Hgb Concent. 27.9 g/dl (32-36); Mean Platelet Volume 9.3 fl (7.5-11.0); Platelet Count 303 K/mm3 (150-450); Red Cell Distribution Width 22.7 % (11.5-14.0); White Blood Count 9.2 K/mm3 (4.0-10.5)
[2021-08-25 05:35] LABS: ALBUMIN 2.7 g/dL (3.5-5.0); ALKALINE PHOSPHATASE 107 U/L (38-126); ANION GAP 11.3 MEQ/L (5-15); BLOOD UREA NITROGEN 16 mg/dL (9-20); CHLORIDE 105 mmol/L (98-107); Calcium 7.7 mg/dL (8.4-10.2); Carbon Dioxide 24 mmol/L (22-30); Creatinine 1 0.52 mg/dL (0.66-1.25); EST GLOMERULAR FILTRATION RATE > 60.0 ML/MIN; Glucose 148 mg/dL (74-106); MAGNESIUM 2.2 mg/dL (1.6-2.3); Potassium 4.3 mmol/L (3.5-5.1); SGOT/AST 31 U/L (17-59); SGPT/ALT 9 U/L (0-50); SODIUM 136 mmol/L (137-145); Total Protein 6.1 g/dL (6.3-8.2)
[2021-08-25 07:06] LABS: ANISOCYTOSIS 1+; Hypochromia 1+; Lymphocytes 5 % (24-44); Monocyte 3 % (0.0-12.0); Neutrophils 92 % (36.-66.); Platelet Estimate NORMAL (NORMAL); Poikilocytosis 1+; Polychromasia 1+; Total Cells Counted 100
[2021-08-25] MEDS: Sodium Chloride 0.9% 1000 ML 1,000 ML IV SCH ×2 (07:47→22:40)
--- NOTE | 2021-08-25 08:55 | XRAY ---
Indication: Endotracheal tube. Comparison: One day earlier. Portable chest again demonstrates moderate diffuse bilateral airspace disease, slightly worsened in left lung. Diminished right effusion/atelectasis with stable small left effusion/atelectasis. Heart not enlarged. Stable endotracheal and NG tubes.
--- NOTE | 2021-08-25 09:01 | PROG NOTE ---
DATE: 08/24/2021 Events noted. Chart reviewed. Care discussed with nursing staff. HISTORY: The patient remains sedated, appears comfortable. Afebrile, heart rate is 100, blood pressure 96/60. Saturating 97%. PHYSICAL EXAMINATION: HEENT: Normocephalic. Oral exam limited. ET tube and OT tube are in place. NECK: Supple. CVS: First and second heart sounds with mild tachycardia. RESPIRATORY: Shows diminished breath sounds. Crackles are heard at right lung base. ABDOMEN: Obese. EXTREMITIES: Trace edema is noted. LABORATORY DATA AND TESTS: Labs reviewed. ASSESSMENT: This is a 65-year-old male admitted with: 1) Acute on chronic hypoxic respiratory failure with improved oxygenation. 2) Chronic hypercapnia. 3) Chronic obstructive pulmonary disease with exacerbation. 4) Right lower lobe community acquired pneumonia. 5) Anemia of chronic illness. 6) History of hypertension and valvular heart disease. RECOMMENDATIONS: 1) Continue mechanical ventilation. 2) The patient's pH has normalized. 3) Will discontinue Nimbex followed by awakening and spontaneous breathing trials starting tomorrow. 4) Continue antibiotics, steroids, bronchodilators and cautious diuresis. Tolerating tube feeds. 5) Will require work up for anemia once extubated. Discussed his plan of care with nursing staff.
[2021-08-25] MEDS: ENOXAPARIN SODIUM SQ SCH (09:51)
[2021-08-25] MEDS: Levofloxacin 500MG/100ML D5W 500 MG/100 ML BAG IV SCH (09:53)
[2021-08-25] MEDS: Lasix 40 MG/4 ML IV SCH (09:53)
[2021-08-25] MEDS: PROTONIX 40 MG IV IV SCH (09:53)
[2021-08-25] MEDS: Mirapex 0.5 MG Tablet PO SCH ×2 (09:54→21:38)
[2021-08-25] MEDS: NORVASC 5 MG PO SCH (09:54)
[2021-08-25] MEDS: Lubrifresh P.M. 3.5 gm Ointment OP SCH ×2 (09:54→21:41)
[2021-08-25] MEDS: Lopressor 50 MG PO SCH ×2 (09:54→21:38)
[2021-08-25] MEDS: PERIDEX MM SCH ×2 (09:55→21:42)
[2021-08-25] MEDS: FOSPHENYTOIN SODIUM IV SCH ×2 (10:49→21:39)
[2021-08-25] MEDS: TRANDATE 20 MG/4 ML SYRINGE IV PRN (11:00)
--- NOTE | 2021-08-25 12:55 | PROG NOTE ---
Events noted. Chart reviewed. DATE: 08/25/2021 HISTORY: The patient was taken off of paralytics followed by reduction in sedation. He was switched to CPAP earlier. However according to nursing staff, the patient failed CPAP with drop in oxygen saturation and increase in respiratory rate. He was switched back to assist control. Currently back on sedation and low dose paralytic. PHYSICAL EXAMINATION: His heart rate is 94, blood pressure 134/70. Saturating 94%. HEENT: Normocephalic. Oral exam limited. NECK: Short, supple. CVS: First and second heart sounds are normal, regular, rhythmic. RESPIRATORY: Shows diminished breath sounds. Bilateral rhonchi and crackles are heard. ABDOMEN: Soft, obese. EXTREMITIES: Trace edema is noted. : Puga catheter is in place. LABORATORY DATA AND TESTS: Labs reviewed. White count 9.2, hemoglobin 7.8, hematocrit 28, PLT count 303,000. Sodium 136, potassium 4.3, chloride 105, bicarb 24, glucose 148, BUN 16, creatinine 0.5. Blood cultures are negative. Chest x-ray noted. ASSESSMENT: This is a 65-year-old male admitted with: 1) Acute on chronic hypoxic hypercapnic respiratory failure. 2) Chronic obstructive pulmonary disease with exacerbation. 3) Right lower lobe community acquired pneumonia. 4) Anemia, chronic illness. 5) Coronary artery disease. 6) Hypertension. 7) Anxiety. RECOMMENDATIONS: 1) The patient has been resedated back. 2) Will obtain CT chest given physical finding consistent with worsening crackles to assess the extent of pneumonia. Will retry weaning again tomorrow. I will be available on long weekend to assist in his care as needed. Discussed with respiratory therapy and nursing staff.
[2021-08-25 13:09] LABS: A-aADO2 100; ABG HEMOGLOBIN 8.2; ABG POTASSIUM 4.1 (3.5-5.1); ABG SITE RIGHT RADIAL; ALLEN TEST OK? YES; ARTERIAL BLD GAS O2 SATURATION 96.1 % (95-100); ARTERIAL BLD GAS TIDAL VOLUME 600 cc; ARTERIAL BLOOD GAS BASE EXCESS 2.2 (-2.0-2.0); ARTERIAL BLOOD GAS FIO2 35 %; ARTERIAL BLOOD GAS PCO2 49 mmHg (35-45); ARTERIAL BLOOD GAS PO2 88 mmHg (75-100); ARTERIAL BLOOD GAS pH 7.37 (7.35-7.45); HCO3- 28.3 (22-28); HGB O2 SAT 96.1 g/dF (94-100)
[2021-08-25] MEDS: Nimbex 200MG/20 Ml MDV (HIGH RISK MED)** 200 MG in Dextrose 5%/Water IV Soln. 250 ML 18... IV PRN (14:41)
[2021-08-25] MEDS: FENTANYL 500 MCG/10 ML VIAL 1,500 MCG in Sodium Chloride 0.9% 150 ML 120 ML IV PRN (16:17)
--- NOTE | 2021-08-25 16:20 | XRAY ---
Indication: Patient on ventilator. Multiple contiguous axial images obtained through the chest without contrast. Comparison: None Lungs demonstrates diffuse bilateral consolidating airspace disease greatest in right lower lobe. Remaining lungs demonstrates patchy nonconsolidating airspace disease greatest right upper lobe. No large effusion. Heart borderline enlarged. Aorta is normal in course and caliber. Scattered small mediastinal lymph nodes, largest anterior to aortic arch measuring 1.6 x 3.1 cm. Endotracheal tube tip 3.5 cm above lisa. NG tube tip traverses chest with tip in the mid stomach lumen. Bony thorax intact with mild degenerative changes throughout the spine. Limited upper abdomen demonstrates incompletely visualized 23 cm fatty hepatomegaly and 17 cm splenomegaly. Impression: 1. Diffuse bilateral consolidating/nonconsolidating airspace disease greatest right lower lobe. 2. Small mediastinal lymph nodes presumed reactive. 3. Borderline cardiomegaly without effusion. 4. Endotracheal and NG tube in situ. 5. Fatty hepatomegaly and splenomegaly.
[2021-08-25] MEDS ORDERED: TRANDATE 20 MG/4 ML SYRINGE IV ONE (18:15)
--- NOTE | 2021-08-25 19:12 | PCM.NOTE ---
Date and Time: 08/25/211908 Subjective Assessment: lst 24 hours events noted. Patient failed weaning today - Review of Systems All Other Systems: Unable due to condition Objective Exam General Appearance: moderate distress Skin Exam: normal color Eye Exam: post op pupil defect (L), post op pupil defect (R) Ears, Nose, Throat Exam: normal ENT inspection Neck Exam: normal inspection Respiratory Exam: diminished breath sounds, crackles/rales, rhonchi, wheezing Cardiovascular Exam: tachycardia Gastrointestinal/Abdomen Exam: soft Extremity Exam: normal inspection Back Exam: normal inspection OBJECTIVE DATA Vital Signs: Vital Signs - 24 hr Temp Pulse Resp BP BP Pulse Ox 08/25/21 18:19 196/101 94 L 08/25/21 18:00 98.6 F 94 H 20 196/101 99 08/25/21 16:46 98.4 F 97 H 20 168/87 99 08/25/21 16:00 98.4 F 94 H 20 156/78 99 08/25/21 15:11 84 20 168/74 08/25/21 15:00 98.2 F 91 H 20 170/82 98 08/25/21 14:41 78 20 154/82 08/25/21 13:49 97.9 F 73 20 135/77 99 08/25/21 13:00 98.4 F 76 20 136/74 99 08/25/21 12:20 98.1 F 84 20 149/87 99 08/25/21 11:28 88 20 98 08/25/21 11:00 98.2 F 87 20 201/95 210/101 98 08/25/21 09:33 97.9 F 106 H 20 166/86 98 08/25/21 08:51 98.1 F 110 H 20 168/97 97 08/25/21 08:00 98.2 F 110 H 20 165/97 98 08/25/21 07:00 98.2 F 92 H 20 128/75 98 08/25/21 06:58 108 H 20 98 08/25/21 06:00 98.6 F 89 20 116/71 97 08/25/21 05:00 98.4 F 90 20 113/66 96 08/25/21 04:00 98.6 F 104 H 20 142/83 96 08/25/21 03:24 107 H 20 95 08/25/21 03:00 99.0 F 108 H 20 144/94 95 08/25/21 02:00 99.0 F 106 H 20 132/81 95 08/25/21 01:00 99.1 F 108 H 20 154/90 95 08/25/21 00:01 108 H 08/25/21 00:00 99.3 F 108 H 20 146/98 95 08/24/21 23:28 107 H 20 96 08/24/21 23:00 99.0 F 106 H 20 146/93 96 08/24/21 22:00 98.4 F 99 H 20 123/77 95 08/24/21 21:00 98.1 F 103 H 20 133/84 94 L 08/24/21 20:00 98.1 F 105 H 20 146/91 94 L Pain Assessment - Last Documented Pain Intensity 0 Pain Scale Used [facility] Intake and Output: Intake & Output 08/23/21 08/24/21 08/25/21 08/26/21 11:59 11:59 11:59 11:59 Intake Total 3506 3864 3820 1491 Output Total 1435 3020 2345 1300 Balance 2071 844 1475 191 Weight 125 kg 133.4 kg Lab Results: Lab Results-Last 24 Hours 08/25/21 08/25/21 08/25/21 Range/Units 04:55 04:55 04:55 WBC 9.2 (4.0-10.5) K/mm3 RBC 4.10 (4.1-5.6) M/mm3 Hgb 7.8 L (12.5-18.0) gm/dl Hct 28.0 L (42-50) % MCV 68.3 L (78-100) fl MCH 19.0 L (26-32) pg MCHC 27.9 L (32-36) g/dl RDW 22.7 H (11.5-14.0) % Plt Count 303 (150-450) K/mm3 MPV 9.3 (7.5-11.0) fl Segmented Neutrophils 92 H (36.-66.) % Lymphocytes (Manual) 5 L (24-44) % Monocytes (Manual) 3 (0.0-12.0) % Hypochromia 1+ Platelet Estimate NORMAL (NORMAL) RBC Morphology ABNORMAL Polychromasia 1+ Poikilocytosis 1+ Anisocytosis 1+ Puncture Site pCO2 (35-45) mmHg pO2 (75-100) mmHg Base Excess (-2.0-2.0) O2 Saturation (94-100) g/dF ABG pH (7.35-7.45) ABG HCO3 (22-28) ABG O2 Sat (Measured) (95-100) % Elian Test A-a Gradient a/A Ratio Hemoglobin Carboxyhemoglobin (0.0-6.9) % THgb Methemoglobin (1.4-1.5) % Temperature C POC O2 Flow Rate % Tidal Volume cc PEEP cmH2O Sodium 136 L (137-145) mmol/L Potassium 4.3 (3.5-5.1) mmol/L Chloride 105 (98-107) mmol/L Carbon Dioxide 24 (22-30) mmol/L Anion Gap 11.3 (5-15) MEQ/L BUN 16 (9-20) mg/dL Creatinine 0.52 L (0.66-1.25) mg/dL Estimated GFR > 60.0 ML/MIN Glucose 148 H (74-106) mg/dL POC Glucometer (74 to 106) mg/dL Calcium 7.7 L (8.4-10.2) mg/dL Magnesium 2.2 (1.6-2.3) mg/dL Total Bilirubin 0.60 (0.2-1.3) mg/dL AST 31 (17-59) U/L ALT 9 (0-50) U/L Alkaline Phosphatase 107 (38-126) U/L Serum Total Protein 6.1 L (6.3-8.2) g/dL Albumin 2.7 L (3.5-5.0) g/dL Procalcitonin 0.722 H (0.030-0.080) ng/mL 08/25/21 08/25/21 08/25/21 Range/Units 12:09 13:00 18:57 WBC (4.0-10.5) K/mm3 RBC (4.1-5.6) M/mm3 Hgb (12.5-18.0) gm/dl Hct (42-50) % MCV (78-100) fl MCH (26-32) pg MCHC (32-36) g/dl RDW (11.5-14.0) % Plt Count (150-450) K/mm3 MPV (7.5-11.0) fl Segmented Neutrophils (36.-66.) % Lymphocytes (Manual) (24-44) % Monocytes (Manual) (0.0-12.0) % Hypochromia Platelet Estimate (NORMAL) RBC Morphology Polychromasia Poikilocytosis Anisocytosis Puncture Site RIGHT RADIAL pCO2 49 H (35-45) mmHg pO2 88 (75-100) mmHg Base Excess 2.2 H (-2.0-2.0) O2 Saturation 96.1 (94-100) g/dF ABG pH 7.37 (7.35-7.45) ABG HCO3 28.3 H (22-28) ABG O2 Sat (Measured) 96.1 (95-100) % Elian Test YES A-a Gradient 100 a/A Ratio 0.47 Hemoglobin 8.2 Carboxyhemoglobin 0.0 (0.0-6.9) % THgb Methemoglobin 0.0 L (1.4-1.5) % Temperature 37.0 C POC O2 Flow Rate 35 % Tidal Volume 600 cc PEEP 5.0 cmH2O Sodium (137-145) mmol/L Potassium 4.1 (3.5-5.1) mmol/L Chloride (98-107) mmol/L Carbon Dioxide (22-30) mmol/L Anion Gap (5-15) MEQ/L BUN (9-20) mg/dL Creatinine (0.66-1.25) mg/dL Estimated GFR ML/MIN Glucose (74-106) mg/dL POC Glucometer 152 H 153 H (74 to 106) mg/dL Calcium (8.4-10.2) mg/dL Magnesium (1.6-2.3) mg/dL Total Bilirubin (0.2-1.3) mg/dL AST (17-59) U/L ALT (0-50) U/L Alkaline Phosphatase (38-126) U/L Serum Total Protein (6.3-8.2) g/dL Albumin (3.5-5.0) g/dL Procalcitonin (0.030-0.080) ng/mL Radiology Exams: Radiology Procedures Category Date Time Status CHEST 1 VIEW (PORTABLE) DAILY Exams 08/24/21 07:00 Completed CHEST WITHOUT CONTRAST [CT] Urgent Exams 08/25/21 12:46 Completed Portable Chest [CHEST 1 VIEW (PORTABLE)] DAILY Exams 04/14/22 05:00 Completed Portable Chest [CHEST 1 VIEW (PORTABLE)] DAILY Exams 08/26/21 05:00 Ordered Portable Chest [CHEST 1 VIEW (PORTABLE)] DAILY Exams 08/27/21 05:00 Ordered Portable Chest [CHEST 1 VIEW (PORTABLE)] DAILY Exams 08/28/21 05:00 Ordered Multi-Disciplinary Progress Notes: Multi-Disciplinary Progress Notes 08/25/21 16:21 Respiratory Note by Yaquelin De Jesus Patient was transported to CT. Patient was taken off vent and bagged, no issues with patient to and from CT. Upon arrival to patient's room after CT, vent was alarming low VT. Patient was taken off vent and bagged while vent circuit was changed. Initialized on 08/25/21 16:21 - END OF NOTE Assessment/Plan (1) Acute respiratory failure with hypoxia and hypercapnia Current Visit: Yes Status: Acute Assessment & Plan: Chief Complaint Diagnosis severe shortness of breath for 1-2 days Allergies Allergy/AdvReac Type Severity Reaction Status Date / Time codeine Allergy Severe stop Verified 08/22/21 07:29 breathing hydrocodone Allergy Severe stop Verified 08/22/21 07:29 breathing morphine Allergy Severe stop Verified 08/22/21 07:29 breathing Penicillins Allergy Verified 08/22/21 07:29 Vital Signs (Last 24 hours) Temp Pulse Resp BP BP Pulse Ox 08/25/21 18:19 196/101 94 L 08/25/21 18:00 98.6 F 94 H 20 196/101 99 08/25/21 16:46 98.4 F 97 H 20 168/87 99 08/25/21 16:00 98.4 F 94 H 20 156/78 99 08/25/21 15:11 84 20 168/74 08/25/21 15:00 98.2 F 91 H 20 170/82 98 08/25/21 14:41 78 20 154/82 08/25/21 13:49 97.9 F 73 20 135/77 99 08/25/21 13:00 98.4 F 76 20 136/74 99 08/25/21 12:20 98.1 F 84 20 149/87 99 08/25/21 11:28 88 20 98 08/25/21 11:00 98.2 F 87 20 201/95 210/101 98 08/25/21 09:33 97.9 F 106 H 20 166/86 98 08/25/21 08:51 98.1 F 110 H 20 168/97 97 08/25/21 08:00 98.2 F 110 H 20 165/97 98 08/25/21 07:00 98.2 F 92 H 20 128/75 98 08/25/21 06:58 108 H 20 98 08/25/21 06:00 98.6 F 89 20 116/71 97 08/25/21 05:00 98.4 F 90 20 113/66 96 08/25/21 04:00 98.6 F 104 H 20 142/83 96 08/25/21 03:24 107 H 20 95 08/25/21 03:00 99.0 F 108 H 20 144/94 95 08/25/21 02:00 99.0 F 106 H 20 132/81 95 08/25/21 01:00 99.1 F 108 H 20 154/90 95 08/25/21 00:01 108 H 08/25/21 00:00 99.3 F 108 H 20 146/98 95 08/24/21 23:28 107 H 20 96 08/24/21 23:00 99.0 F 106 H 20 146/93 96 08/24/21 22:00 98.4 F 99 H 20 123/77 95 08/24/21 21:00 98.1 F 103 H 20 133/84 94 L 08/24/21 20:00 98.1 F 105 H 20 146/91 94 L Home Medications Medication Instructions Recorded Confirmed Last Taken Type Albuterol Sulfate [Proair Hfa] 1 inh PO Q46H 08/22/21 08/22/21 Unknown History Aspirin EC 81 mg [Ecotrin 81 81 mg PO DAILY 08/22/21 08/22/21 Unknown History mg] Buspirone HCl 5 mg [Buspar 5 10 mg PO BID 08/22/21 08/22/21 Unknown History mg] Furosemide 40 mg [Lasix 40 40 mg PO DAILY 08/22/21 08/22/21 Unknown History MG] Mirtazapine 30 mg [Remeron 30 30 mg PO HS 08/22/21 08/22/21 Unknown History mg] Pramipexole Di-HCl [Pramipexole 1 mg PO BID 08/22/21 08/22/21 Unknown History Dihydrochloride] Sertraline HCl [Zoloft] 100 mg PO DAILY 08/22/21 08/22/21 Unknown History Current Medications Generic Name Dose Route Start Last Admin Trade Name Freq PRN Reason Stop Dose Admin Acetaminophen 650 mg 08/22/21 10:30 08/23/21 12:59 Acetaminophen 650 Mg Supp.Rect RI 09/21/21 10:29 650 mg Q4H PRN PRN Administration PAIN AND/OR FEVER Albuterol/Ipratropium 3 ml 08/22/21 11:00 08/25/21 18:49 Ipratropium/Albuterol Sulfate 3 Ml Ampul.Neb IH 09/21/21 10:59 3 ml Q4HRT JAY Administration Amlodipine Besylate 10 mg 08/23/21 10:00 08/25/21 09:54 Amlodipine Besylate 5 Mg Tablet PO 09/22/21 09:59 10 mg DAILY JAY Administration Artificial Tears 1 gm 08/23/21 10:00 08/25/21 09:54 Lanolin/Min Oil/Petrolat Wht 3.5 Gm Tube OP 09/22/21 09:59 1 gm Q12H JAY Administration Chlorhexidine Gluconate 15 ml 08/23/21 10:00 08/25/21 09:55 Chlorhexidine Gluconate 15 Ml Mouthwash MM 09/22/21 09:59 15 ml BID JAY Administration Enoxaparin Sodium 40 mg 08/25/21 10:00 08/25/21 09:51 Enoxaparin Sodium 40 Mg/0.4 Ml Syringe SQ 09/24/21 09:59 40 mg DAILY JAY Administration Fosphenytoin Sodium 300 mg 08/25/21 22:00 Fosphenytoin Na 100mg/2 Ml Vial IV 09/24/21 21:59 BID JAY Furosemide 40 mg 08/25/21 10:00 08/25/21 09:53 Furosemide 40 Mg/4 Ml Vial IV 09/24/21 09:59 40 mg DAILY JAY Administration Propofol 100 mls @ 10.08 mls/hr 08/22/21 07:25 08/25/21 16:21 Propofol 1000 Mg/100 Ml Bottle IV 09/21/21 07:24 40 mcg/kg/min .Q9H56M PRN 26.88 mls/hr SEDATION FOR VENT Administration Protocol 15 MCG/KG/MIN Sodium Chloride 1,000 mls @ 50 mls/hr 08/22/21 10:30 08/25/21 07:47 Sodium Chloride 0.9% 1000 Ml IV 09/21/21 10:29 50 mls/hr .Q20H JAY Administration Levofloxacin/Dextrose 500 mg in 100 mls @ 100 mls/hr 08/22/21 10:30 08/25/21 09:53 Levofloxacin 500mg/100ml D5w IV 09/21/21 10:29 100 mls/hr Q24H10 JAY Administration Cisatracurium Besylate 200 mg/ 200 mls @ 20.16 mls/hr 08/22/21 13:00 08/25/21 14:41 Dextrose IV 09/21/21 12:59 1 mcg/kg/min .Q9H56M PRN 6.72 mls/hr PARALYSIS Administration Protocol 3 MCG/KG/MIN Aztreonam 1 gm/ Sodium 100 mls @ 200 mls/hr 08/22/21 13:00 08/25/21 18:55 Chloride IV 08/27/21 12:59 200 mls/hr Q6HT JAY Administration Fentanyl Citrate 1,500 mcg/ 150 mls @ 2.5 mls/hr 08/22/21 16:38 08/25/21 16:17 Sodium Chloride IV 09/21/21 16:37 0.74 mcg/kg/hr .Q24H PRN 9.3 mls/hr PAIN Administration Protocol 0.2 MCG/KG/HR Ibuprofen 400 mg 08/23/21 14:14 08/24/21 07:37 Ibuprofen 100 Mg/5 Ml Bottle NG 09/22/21 14:13 400 mg Q6H PRN PRN Administration PAIN AND/OR FEVER Labetalol HCl 10 mg 08/25/21 10:45 08/25/21 11:00 Labetalol Hcl 20 Mg/4 Ml Disp.Syringe IV 09/24/21 10:44 10 mg Q12H/PRN PRN Administration HYPERTENSION Labetalol HCl 10 mg 08/25/21 18:15 08/25/21 18:19 Labetalol Hcl 20 Mg/4 Ml Disp.Syringe IV 08/25/21 18:16 10 mg STAT ONE Administration Metoprolol Tartrate 50 mg 08/25/21 10:00 08/25/21 09:54 Metoprolol Tartrate 50 Mg Tablet PO 09/24/21 09:59 50 mg BID JAY Administration Miscellaneous Information 1 each 08/22/21 13:45 Medication Intervention 1 Each Each 09/21/21 13:44 .RN TO CHECK JAY Ondansetron HCl 4 mg 08/22/21 10:30 Ondansetron Hcl 4 Mg/2 Ml Vial IV 09/21/21 10:29 Q6H PRN PRN NAUSEA/VOMITING Pantoprazole Sodium 40 mg 08/22/21 10:30 08/25/21 09:53 Pantoprazole 40 Mg Vial IV 09/21/21 10:29 40 mg Q24H JAY Administration Pramipexole Dihydrochloride 1 mg 08/22/21 22:00 08/25/21 09:54 Pramipexole Di-Hcl 0.5 Mg Tab PO 09/21/21 21:59 1 mg BID JAY Administration Discontinued Medications Generic Name Dose Route Start Last Admin Trade Name Freq PRN Reason Stop Dose Admin Acetaminophen Confirm 08/22/21 07:05 Acetaminophen 325mg Suppository Administered 08/22/21 07:06 Dose 650 mg .ROUTE .STK-MED ONE Acetaminophen 650 mg 08/22/21 08:04 08/22/21 07:09 Acetaminophen 325mg Suppository RI 08/22/21 08:05 650 mg STAT STA Administration Albuterol Sulfate 2 puff 08/22/21 15:00 Albuterol Common Canister Inhaler IH 09/21/21 14:59 Q4HRT [facility] Albuterol/Ipratropium Confirm 08/22/21 10:05 Ipratropium/Albuterol Sulfate 3 Ml Ampul.Neb Administered 08/22/21 10:06 Dose 3 ml IH .STK-MED ONE Albuterol/Ipratropium 3 ml 08/22/21 06:45 08/24/21 19:06 Ipratropium/Albuterol Sulfate 3 Ml Ampul.Neb IH 08/22/21 06:46 3 ml ONCE ONE Administration Amitriptyline HCl 25 mg 08/22/21 22:00 08/24/21 07:41 Amitriptyline Hcl 25 Mg Tablet PO 09/21/21 21:59 25 mg BID JAY Administration Amitriptyline HCl 50 mg 08/22/21 22:00 08/24/21 07:39 Amitriptyline Hcl 50 Mg Tablet PO 09/21/21 21:59 50 mg BID JAY Administration Aspirin 81 mg 08/23/21 10:00 08/24/21 07:39 Aspirin 81 Mg Tablet.Ec PO 09/22/21 09:59 81 mg DAILY JAY Administration Bumetanide 1 mg 08/23/21 09:07 08/23/21 09:33 Bumetanide 0.25 Mg/Ml 4ml Vial IV 08/23/21 09:08 1 mg STAT ONE Administration Buspirone HCl 10 mg 08/22/21 22:00 08/24/21 07:40 Buspirone Hcl 5 Mg Tablet PO 09/21/21 21:59 10 mg BID JAY Administration Chlorhexidine Gluconate 15 ml 08/23/21 10:00 Chlorhexidine Gluconate 473 Ml Mouthwash MM 09/22/21 09:59 BID JAY Cisatracurium Besylate 10 mg 08/22/21 13:00 08/22/21 12:50 Cisatracurium 20 Mg/10 Ml Vial IV 08/22/21 13:01 10 mg ONCE ONE Administration Enoxaparin Sodium 40 mg 08/22/21 10:30 08/24/21 07:39 Enoxaparin Sodium 40 Mg/0.4 Ml Syringe SQ 09/21/21 10:29 40 mg DAILY JAY Administration Etomidate 20 mg 08/22/21 07:00 08/22/21 06:46 Etomidate 20 Mg/10 Ml Amp IV 08/22/21 07:01 20 mg STAT STA Administration Fenofibrate 145 mg 08/23/21 10:00 Fenofibrate,Micronized 145 Mg Tablet PO 09/22/21 09:59 DAILY JAY Fentanyl Citrate 100 mcg 08/22/21 08:02 08/22/21 08:04 Fentanyl Citrate 100 Mcg/2 Ml* Vial IV 08/22/21 08:03 100 mcg STAT ONE Administration Fentanyl Citrate Confirm 08/22/21 08:03 Fentanyl Citrate 100 Mcg/2 Ml* Vial Administered 08/22/21 08:04 Dose 100 mcg .ROUTE .STK-MED ONE Fosphenytoin Sodium 300 mg 08/24/21 22:00 08/25/21 10:49 Fosphenytoin Na 100mg/2 Ml Vial IV 09/23/21 21:59 300 mg BID JAY Administration Furosemide 40 mg 08/23/21 10:00 08/24/21 07:41 Furosemide 40 Mg Tablet PO 09/22/21 09:59 40 mg DAILY JAY Administration Gabapentin 300 mg 08/22/21 22:00 08/24/21 07:41 Gabapentin 300 Mg Capsule PO 09/21/21 21:59 300 mg TID JAY Administration Levofloxacin/Dextrose 750 mg in 150 mls @ 100 mls/hr 08/22/21 06:57 08/22/21 07:30 Levofloxacin 750mg/150ml D5w IV 08/22/21 08:26 100 ml/hr STAT STA 100 mls/hr Administration Aztreonam 2 gm/ Sodium 100 mls @ 200 mls/hr 08/22/21 06:58 08/22/21 08:47 Chloride IV 08/22/21 07:27 200 mls/hr STAT ONE Administration Rocuronium [place] 100 mg/ 100 mls @ 33.6 mls/hr 08/22/21 07:25 08/22/21 07:14 Sodium Chloride IV 08/22/21 13:00 5 mcg/kg/min .Q2H59M PRN 33.6 mls/hr PARALYSIS FOR VENT Administration Protocol 5 MCG/KG/MIN Levofloxacin/Dextrose Confirm 08/22/21 07:29 Levofloxacin 750mg/150ml D5w Administered 08/22/21 07:30 Dose 750 mg in 150 mls @ ud IV .STK-MED ONE Sodium Chloride 1,000 mls @ 50 mls/hr 08/22/21 08:15 08/22/21 06:41 Sodium Chloride 0.9% 1000 Ml IV 09/21/21 08:14 50 mls/hr .Q20H JAY Administration Sodium Chloride 1,000 mls @ 250 mls/hr 08/22/21 08:15 08/22/21 08:11 Sodium Chloride 0.9% 1000 Ml IV 09/21/21 08:14 250 mls/hr .Q4H JAY Administration Aztreonam 1 gm/ Sodium 100 mls @ 200 mls/hr 08/22/21 12:00 08/22/21 17:27 Chloride IV 08/25/21 11:59 Not Given Q6HT JAY Metoprolol Succinate 100 mg 08/23/21 10:00 08/24/21 07:41 Metoprolol Succinate 100 Mg Tablet.Sa PO 09/22/21 09:59 100 mg DAILY JAY Administration Mirtazapine 30 mg 08/22/21 22:00 08/23/21 21:07 Mirtazapine 30 Mg Tablet PO 09/21/21 21:59 30 mg HS JAY Administration Non-Formulary Medication 1 each 08/22/21 10:46 08/22/21 15:14 Pharmacy Dosing Request 08/22/21 10:47 1 each STAT ONE Administration Non-Formulary Medication 75 mg 08/22/21 22:00 Amitriptyline Hcl [Amitriptyline Hcl] PO 09/21/21 21:59 BID JAY Non-Formulary Medication 1 each 08/24/21 13:08 08/24/21 14:12 Pharmacy Dosing Request 08/24/21 13:09 1 each STAT ONE Administration Phenytoin Sodium 600 mg 08/22/21 13:30 Phenytoin Sodium Extended 100 Mg Capsule PO 09/21/21 13:29 UD [facility] Phenytoin Sodium 300 mg 08/23/21 08:00 08/24/21 07:37 Phenytoin Sodium Extended 100 Mg Capsule PO 09/22/21 07:59 300 mg BREAKFAST JAY Administration Phenytoin Sodium 100 mg 08/23/21 12:00 08/24/21 13:09 Phenytoin Sodium Extended 100 Mg Capsule PO 09/22/21 11:59 Not Given NOON JAY Phenytoin Sodium 200 mg 08/22/21 22:00 08/23/21 21:06 Phenytoin Sodium Extended 100 Mg Capsule PO 09/21/21 21:59 200 mg QPM JAY Administration Propofol 150 mg 08/22/21 07:00 08/22/21 06:54 Propofol 10 Mg/Ml 20ml Vial IV 08/22/21 07:01 150 mg STAT STA Administration Rocuronium [place] 100 mg 08/22/21 07:25 08/22/21 06:56 Rocuronium [place] 100 Mg/10ml Vial IV 08/22/21 07:26 100 mg STAT STA Administration Sertraline HCl 100 mg 08/23/21 10:00 08/24/21 07:40 Sertraline Hcl 50 Mg Tab PO 09/22/21 09:59 100 mg DAILY JAY Administration Succinylcholine Chloride 150 mg 08/22/21 06:50 08/22/21 06:46 Succinylcholine Chloride 200mg/10 Ml Vial IV 08/22/21 06:51 150 mg STAT STA Administration Intake & Output (Last 24 hours) 08/23/21 08/24/21 08/25/21 08/26/21 11:59 11:59 11:59 11:59 Intake Total 3506 3864 3820 1491 Output Total 1435 3020 2345 1300 Balance 2071 844 1475 191 Weight 125 kg 133.4 kg Laboratory Results (Last 24 hours) 08/25/21 08/25/21 08/25/21 18:57 13:00 12:09 WBC RBC Hgb Hct MCV MCH MCHC RDW Plt Count MPV Segmented Neutrophils Lymphocytes (Manual) Monocytes (Manual) Hypochromia Platelet Estimate RBC Morphology Polychromasia Poikilocytosis Anisocytosis Puncture Site RIGHT RADIAL pCO2 49 H pO2 88 Base Excess 2.2 H O2 Saturation 96.1 ABG pH 7.37 ABG HCO3 28.3 H ABG O2 Sat (Measured) 96.1 Elian Test YES A-a Gradient 100 a/A Ratio 0.47 Hemoglobin 8.2 Carboxyhemoglobin 0.0 Methemoglobin 0.0 L Temperature 37.0 POC O2 Flow Rate 35 Tidal Volume 600 PEEP 5.0 Sodium Potassium 4.1 Chloride Carbon Dioxide Anion Gap BUN Creatinine Estimated GFR Glucose POC Glucometer 153 H 152 H Calcium Magnesium Total Bilirubin AST ALT Alkaline Phosphatase Serum Total Protein Albumin Procalcitonin 08/25/21 08/25/21 08/25/21 04:55 04:55 04:55 WBC 9.2 RBC 4.10 Hgb 7.8 L Hct 28.0 L MCV 68.3 L MCH 19.0 L MCHC 27.9 L RDW 22.7 H Plt Count 303 MPV 9.3 Segmented Neutrophils 92 H Lymphocytes (Manual) 5 L Monocytes (Manual) 3 Hypochromia 1+ Platelet Estimate NORMAL RBC Morphology ABNORMAL Polychromasia 1+ Poikilocytosis 1+ Anisocytosis 1+ Puncture Site pCO2 pO2 Base Excess O2 Saturation ABG pH ABG HCO3 ABG O2 Sat (Measured) Elian Test A-a Gradient a/A Ratio Hemoglobin Carboxyhemoglobin Methemoglobin Temperature POC O2 Flow Rate Tidal Volume PEEP Sodium 136 L Potassium 4.3 Chloride 105 Carbon Dioxide 24 Anion Gap 11.3 BUN 16 Creatinine 0.52 L Estimated GFR > 60.0 Glucose 148 H POC Glucometer Calcium 7.7 L Magnesium 2.2 Total Bilirubin 0.60 AST 31 ALT 9 Alkaline Phosphatase 107 Serum Total Protein 6.1 L Albumin 2.7 L Procalcitonin 0.722 H Orders (Last 24 hours) Category Date Time Status Miscellaneous Nursing Order ROUTINE Care 08/25/21 06:00 Active CHEST WITHOUT CONTRAST [CT] Urgent Exams 08/25/21 12:46 Completed Portable Chest [CHEST 1 VIEW (PORTABLE)] DAILY Exams 08/25/21 05:00 Completed Portable Chest [CHEST 1 VIEW (PORTABLE)] DAILY Exams 08/26/21 05:00 Ordered Portable Chest [CHEST 1 VIEW (PORTABLE)] DAILY Exams 08/27/21 05:00 Ordered Portable Chest [CHEST 1 VIEW (PORTABLE)] DAILY Exams 08/28/21 05:00 Ordered ABG [ARTERIAL BLOOD GASES] DAILY Lab 08/25/21 13:00 Completed ABG [ARTERIAL BLOOD GASES] DAILY Lab 08/26/21 05:00 Ordered ABG [ARTERIAL BLOOD GASES] DAILY Lab 08/27/21 05:00 Ordered CBC W DIFF AM.LAB Lab 08/25/21 04:55 Completed CBC W DIFF AM.LAB Lab 08/26/21 04:00 Ordered CBC W DIFF AM.LAB Lab 08/27/21 04:00 Ordered CBC W DIFF AM.LAB Lab 08/28/21 04:00 Ordered CBC W DIFF AM.LAB Lab 08/29/21 04:00 Ordered CMP AM.LAB Lab 08/25/21 04:55 Completed CMP AM.LAB Lab 08/26/21 04:00 Ordered CMP AM.LAB Lab 08/27/21 04:00 Ordered CMP AM.LAB Lab 08/28/21 04:00 Ordered CMP AM.LAB Lab 08/29/21 04:00 Ordered MAG [MAGNESIUM] AM.LAB Lab 08/25/21 04:55 Completed Manual Differential NC Routine Lab 08/25/21 04:55 Completed PHENYTOIN [Dilantin(Phenytoin)] Urgent Lab 08/26/21 06:00 Ordered POCT GLUCOSE Stat Lab 08/25/21 12:09 Completed POCT GLUCOSE Stat Lab 08/25/21 18:57 Completed PROCALCITONIN Routine Lab 08/25/21 04:55 Completed Enoxaparin Sodium [Enoxaparin Sodium] Med 08/25/21 10:00 Active 40 mg SQ DAILY Fosphenytoin Na 100Mg/2 ml [Fosphenytoin Sodium] Med 08/24/21 22:00 Discontinued 300 mg IV BID Fosphenytoin Na 100Mg/2 ml [Fosphenytoin Sodium] Med 08/25/21 22:00 Active 300 mg IV BID Furosemide 40 mg/4 ml [Lasix 40 MG/4 ML] Med 08/25/21 10:00 Active 40 mg IV DAILY Labetalol HCl 20 mg/4 ml [Trandate 20 mg/4 ml Med 08/25/21 10:45 Active Syringe] 10 mg IV Q12H/PRN PRN Labetalol HCl 20 mg/4 ml [Trandate 20 mg/4 ml Med 08/25/21 18:15 Once Syringe] 10 mg IV STAT ONE Metoprolol Tartrate 50 mg [Lopressor 50 MG] Med 08/25/21 10:00 Active 50 mg PO BID Patient Care Notes (Last 24 hours) 08/25/21 18:06 Nursing Note by Belinda Contreras Dr. called at this time. B/P 195/106. New order received to give extra 1 time dose of Labetalol 10mg IVP now. Will monitor. Initialized on 08/25/21 18:06 - END OF NOTE 08/25/21 16:21 Respiratory Note by Yaquelin De Jesus Patient was transported to [facility]. Patient was taken off vent and bagged, no issues with patient to and from CT. Upon arrival to patient's room after CT, vent was alarming low VT. Patient was taken off vent and bagged while vent circuit was changed. Initialized on 08/25/21 16:21 - END OF NOTE 08/25/21 15:50 (created 08/25/21 17:03) Nursing Note by Belinda Contreras Patient back from [facility] at this time. Patient connected back to monitors. Ventilator settings continue on AC at 35%. Drips continue with Nimbex @ 2mcg/kg/min, Propofol @ 40mcg/kg/min, and Fentanyl @ 0.7mcg/kg/hr. Will continue to monitor. Initialized on 08/25/21 17:03 - END OF NOTE 08/25/21 15:15 (created 08/25/21 15:35) Nursing Note by Belinda Contreras Patient taken down to radiology at this time for chest CT. Initialized on 08/25/21 15:35 - END OF NOTE 08/25/21 11:30 (created 08/25/21 17:10) Nursing Note by Belinda Contreras 1130- Drips decreased. Fent 0.2mcg/kg/hr, Propofol 19.3mcg/kg/min, Nimbex off. BIS 42. Patient moving slightly in bed. Opening eyes. 1145- Fentanyl off. Propofol off. Nimbex off. RT at bedside, attempted patient on bipap mode. PT unable to tolerate at this time. O2 sat 81%, restless, B/P 240/123, resp 40. Patient deemed clearly in distress per RT staff. Patient placed back on AC mode @ 35% O2. Drips started back at baseline sedation level- Nimbex 16mcg/kg/hr, Fentanyl 0.7mcg/kg/hr, Proprofol @ 40mcg/kg/min. Will continue to monitor. Initialized on 08/25/21 17:10 - END OF NOTE 08/25/21 11:00 (created 08/25/21 13:18) Nursing Note by Belinda Contreras Labetalol 10mg IVP given for high blood pressure. 210/101. Will continue to monitor. Initialized on 08/25/21 13:18 - END OF NOTE 08/25/21 10:40 Nursing Note by Belinda Contreras Called Dr. Ibarra at this time. Spoke with nurse, Rowan. Informed of increase in blood pressure due to weaning of IV sedation/paralytic medications. New order received for Labatolol 10mg IVP Q12hrs PRN. Initialized on 08/25/21 10:40 - END OF NOTE 08/25/21 09:30 (created 08/25/21 18:40) Nursing Note by Belinda Contreras Drips decreased at this time. Nimbex decreased to 1mcg, Propanolol decreased to 27mcg, Fentanyl decreased to 0.5. BIS 63. Will continue to monitor. Initialized on 08/25/21 18:40 - END OF NOTE 08/25/21 06:46 Nursing Note by Naz Young 0600 weaning of sedation started. Tube feeding off in preparation for weaning trials. Initialized on 08/25/21 06:46 - END OF NOTE Code(s): J96.01 - ACUTE RESPIRATORY FAILURE WITH HYPOXIA; J96.02 - ACUTE RESPIRATORY FAILURE WITH HYPERCAPNIA (2) Bilateral pneumonia Current Visit: Yes Status: Acute Qualifiers: Pneumonia type: due to Pneumococcus Lung location: lower lobe of lung Qualified Code(s): J13 - Pneumonia due to Streptococcus pneumoniae Code(s): J18.9 - PNEUMONIA, UNSPECIFIED ORGANISM
[2021-08-26] MEDS: DUONEB 0.5-3 MG/3 ml Neb IH SCH ×6 (03:35→22:54)
[2021-08-26] MEDS: Propofol 1000 mg/100 ml Bottle 100 ML IV PRN ×6 (03:56→23:41)
[2021-08-26] MEDS: Nimbex 200MG/20 Ml MDV (HIGH RISK MED)** 200 MG in Dextrose 5%/Water IV Soln. 250 ML 18... IV PRN (03:56)
[2021-08-26 05:19] LABS: A-aADO2 124; ABG HEMOGLOBIN 8.8; ABG POTASSIUM 4.6 (3.5-5.1); ABG SITE LEFT RADIAL; ALLEN TEST OK? YES; ARTERIAL BLD GAS O2 SATURATION 97.1 % (95-100); ARTERIAL BLD GAS TIDAL VOLUME 600 cc; ARTERIAL BLOOD GAS BASE EXCESS 4.3 (-2.0-2.0); ARTERIAL BLOOD GAS FIO2 45 %; ARTERIAL BLOOD GAS PCO2 47 mmHg (35-45); ARTERIAL BLOOD GAS PO2 138 mmHg (75-100); ARTERIAL BLOOD GAS pH 7.41 (7.35-7.45); CARBOXYHEMOGLOBIN 3.4 % THgb (0.0-6.9); HCO3- 29.8 (22-28); HGB O2 SAT 93.8 g/dF (94-100)
[2021-08-26] MEDS: AZACTAM 1 GM*** 1 GM in Sodium Chloride 100ML MINI-BAG PLUS 100 ML IV SCH ×4 (05:34→23:47)
[2021-08-26 05:54] LABS: ALBUMIN 3.2 g/dL (3.5-5.0); ALKALINE PHOSPHATASE 127 U/L (38-126); ANION GAP 9.5 MEQ/L (5-15); BLOOD UREA NITROGEN 14 mg/dL (9-20); CHLORIDE 104 mmol/L (98-107); Calcium 8.2 mg/dL (8.4-10.2); Carbon Dioxide 30 mmol/L (22-30); Creatinine 1 0.55 mg/dL (0.66-1.25); EST GLOMERULAR FILTRATION RATE > 60.0 ML/MIN; Glucose 157 mg/dL (74-106); Potassium 4.6 mmol/L (3.5-5.1); SGOT/AST 34 U/L (17-59); SGPT/ALT 10 U/L (0-50); SODIUM 139 mmol/L (137-145); Total Protein 7.4 g/dL (6.3-8.2)
[2021-08-26 06:59] LABS: Hematocrit 31.3 % (42-50); Hemoglobin 8.7 gm/dl (12.5-18.0); Mean Cell Volume 68.8 fl (78-100); Mean Corpuscular Hemoglobin 19.1 pg (26-32); Mean Corpuscular Hgb Concent. 27.8 g/dl (32-36); Mean Platelet Volume 9.4 fl (7.5-11.0); Platelet Count 343 K/mm3 (150-450); Red Blood Count 4.55 M/mm3 (4.1-5.6); Red Cell Distribution Width 23.3 % (11.5-14.0); White Blood Count 14.8 K/mm3 (4.0-10.5)
[2021-08-26] MEDS: TRANDATE 20 MG/4 ML SYRINGE IV PRN (08:04)
[2021-08-26] MEDS: NORVASC 5 MG PO SCH (08:18)
[2021-08-26] MEDS: Mirapex 0.5 MG Tablet PO SCH ×2 (08:18→21:36)
[2021-08-26] MEDS: Lopressor 50 MG PO SCH ×2 (08:18→21:36)
[2021-08-26] MEDS: Levofloxacin 500MG/100ML D5W 500 MG/100 ML BAG IV SCH (08:19)
[2021-08-26] MEDS: Lasix 40 MG/4 ML IV SCH (08:20)
[2021-08-26] MEDS: PROTONIX 40 MG IV IV SCH (08:20)
[2021-08-26] MEDS: ENOXAPARIN SODIUM SQ SCH (08:21)
[2021-08-26] MEDS: Lubrifresh P.M. 3.5 gm Ointment OP SCH ×2 (08:22→21:36)
[2021-08-26] MEDS: PERIDEX MM SCH ×2 (08:29→21:36)
[2021-08-26] MEDS: FOSPHENYTOIN SODIUM IV SCH ×2 (08:30→21:37)
--- NOTE | 2021-08-26 08:37 | XRAY ---
Indication: Endotracheal tube. Comparison: One day earlier. Portable chest slightly less inflated and grossly unchanged again demonstrating CT proven diffuse bilateral consolidating/nonconsolidating airspace disease, borderline cardiomegaly, and endotracheal/NG tubes. No new abnormalities.
[2021-08-26] MEDS ORDERED: TRANDATE 20 MG/4 ML SYRINGE IV PRN (08:58)
[2021-08-26 10:07] LABS: A-aADO2 156; ABG POTASSIUM 5.2 (3.5-5.1); ART BLD GAS PRESSURE SUPPORT 12; ARTERIAL BLD GAS O2 SATURATION 86.4 % (95-100); ARTERIAL BLOOD GAS BASE EXCESS 1.8 (-2.0-2.0); ARTERIAL BLOOD GAS FIO2 45 %; ARTERIAL BLOOD GAS PO2 61 mmHg (75-100); ARTERIAL BLOOD GAS VENT MODE CPAP; CARBOXYHEMOGLOBIN 0.4 % THgb (0.0-6.9); HCO3- 32.4 (22-28); HGB O2 SAT 86.1 g/dF (94-100)
[2021-08-26 10:08] LABS: ARTERIAL BLOOD GAS PCO2 83 mmHg (35-45)
[2021-08-26 10:09] LABS: ABG SITE RIGHT RADIAL; ALLEN TEST OK? YES
[2021-08-26] MEDS: FENTANYL 500 MCG/10 ML VIAL 1,500 MCG in Sodium Chloride 0.9% 150 ML 120 ML IV PRN ×2 (10:16→22:51)
[2021-08-26 11:20] LABS: BAND 12 % (0.0-2.0); Lymphocytes 10 % (24-44); Monocyte 6 % (0.0-12.0); Neutrophils 72 % (36.-66.); Nucleated Red Blood Cell 1 %; Total Cells Counted 100
[2021-08-26 11:27] LABS: ANISOCYTOSIS 2+; Hypochromia 1+; Microcytosis 1+; Platelet Estimate NORMAL (NORMAL); Polychromasia 1+
[2021-08-26 11:28] LABS: Basophilic Stippling RARE; Toxic Granulation 2+
[2021-08-26] MEDS ORDERED: Sodium Chloride 3 ML UD NEBULES IH ONE (19:03)
[2021-08-26] MEDS: Ativan 2 MG/1 ML VIAL IV PRN (19:30)
[2021-08-27] MEDS: Ativan 2 MG/1 ML VIAL IV PRN ×4 (00:10→11:30)
[2021-08-27] MEDS: Propofol 1000 mg/100 ml Bottle 100 ML IV PRN ×4 (02:35→10:20)
[2021-08-27] MEDS: DUONEB 0.5-3 MG/3 ml Neb IH SCH ×3 (03:31→10:37)
[2021-08-27] MEDS ORDERED: Sodium Chloride 3 ML UD NEBULES IH ONE (03:34)
[2021-08-27 05:27] LABS: Hematocrit 28.2 % (42-50); Hemoglobin 7.7 gm/dl (12.5-18.0); Mean Cell Volume 70.3 fl (78-100); Mean Corpuscular Hemoglobin 19.2 pg (26-32); Mean Corpuscular Hgb Concent. 27.3 g/dl (32-36); Mean Platelet Volume 9.1 fl (7.5-11.0); Platelet Count 310 K/mm3 (150-450); Red Blood Count 4.01 M/mm3 (4.1-5.6); Red Cell Distribution Width 23.1 % (11.5-14.0); White Blood Count 8.9 K/mm3 (4.0-10.5)
[2021-08-27] MEDS: AZACTAM 1 GM*** 1 GM in Sodium Chloride 100ML MINI-BAG PLUS 100 ML IV SCH ×2 (05:31→11:08)
[2021-08-27 06:10] LABS: ALBUMIN 3.2 g/dL (3.5-5.0); ALKALINE PHOSPHATASE 112 U/L (38-126); BLOOD UREA NITROGEN 17 mg/dL (9-20); CHLORIDE 107 mmol/L (98-107); Calcium 8.2 mg/dL (8.4-10.2); Carbon Dioxide 29 mmol/L (22-30); Creatinine 1 0.44 mg/dL (0.66-1.25); EST GLOMERULAR FILTRATION RATE > 60.0 ML/MIN; Glucose 127 mg/dL (74-106); Potassium 5.1 mmol/L (3.5-5.1); SGOT/AST 34 U/L (17-59); SGPT/ALT 8 U/L (0-50); SODIUM 142 mmol/L (137-145); Total Protein 6.9 g/dL (6.3-8.2)
[2021-08-27 06:31] LABS: ANISOCYTOSIS 1+; BAND 3 % (0.0-2.0); Lymphocytes 24 % (24-44); Monocyte 1 % (0.0-12.0); Neutrophils 72 % (36.-66.); Nucleated Red Blood Cell 2 %; Poikilocytosis 1+; Total Cells Counted 100
[2021-08-27 06:32] LABS: Hypochromia 1+; Platelet Estimate NORMAL (NORMAL); Polychromasia 1+
[2021-08-27] MEDS: Sodium Chloride 0.9% 1000 ML 1,000 ML IV SCH ×2 (07:23→09:21)
--- NOTE | 2021-08-27 07:25 | XRAY ---
Indication: Follow-up endotracheal tube. Comparison: One day earlier. Portable chest remains underinflated and grossly unchanged again demonstrating diffuse bilateral consolidating/nonconsolidating air space disease, borderline cardiomegaly, and endotracheal/NG tubes. No new cardiopulmonary abnormalities.
[2021-08-27] MEDS: FOSPHENYTOIN SODIUM IV SCH (09:06)
[2021-08-27] MEDS: ENOXAPARIN SODIUM SQ SCH (09:06)
[2021-08-27] MEDS: Lasix 40 MG/4 ML IV SCH (09:11)
[2021-08-27] MEDS: Lubrifresh P.M. 3.5 gm Ointment OP SCH (09:12)
[2021-08-27] MEDS: Levofloxacin 500MG/100ML D5W 500 MG/100 ML BAG IV SCH (09:18)
[2021-08-27] MEDS: Lopressor 50 MG PO SCH (09:18)
[2021-08-27] MEDS: Mirapex 0.5 MG Tablet PO SCH (09:18)
[2021-08-27] MEDS: NORVASC 5 MG PO SCH (09:18)
[2021-08-27] MEDS: PERIDEX MM SCH (09:19)
[2021-08-27] MEDS: PROTONIX 40 MG IV IV SCH (09:21)
[2021-08-27] MEDS: FENTANYL 500 MCG/10 ML VIAL 1,500 MCG in Sodium Chloride 0.9% 150 ML 120 ML IV PRN (09:24)
[2021-08-27] MEDS ORDERED: Lasix 20 MG/2 ML IV ONE (11:27)
[2021-08-27] MEDS ORDERED: Ativan 20 MG/10 ML MDV*** 40 MG in D5w 100ML Mini Bag 100 ML 80 ML IV PRN (11:38)
--- NOTE | 2021-08-27 12:54 | PCM.NOTE ---
Date and Time: 08/27/21 1248 Subjective Assessment: Pt is sedated, on ventilator. Does occasionally get restless. Is on propofol and fentanyl (morphine was ordered, but pt is allergic). Even when restless with eyes open, he continues to be nonresponsive to staff. - Review of Systems Constitutional: No Fever Neurological: Other (sedated) Objective Exam General Appearance: other (sedated, on ventilator. no response to voice/touch.) Skin Exam: normal color, warm, dry, No rash Respiratory Exam: diminished breath sounds (good air exchange), No crackles/rales, No rhonchi, No wheezing Cardiovascular Exam: regular rate/rhythm, normal heart sounds, No murmur Gastrointestinal/Abdomen Exam: soft, No normal bowel sounds (hypoactive but present), No mass Extremity Exam: swelling (trace pretibial edema bilat) OBJECTIVE DATA Vital Signs: Vital Signs - 24 hr Temp Pulse Resp BP BP Pulse Ox 08/27/21 11:48 83 08/27/21 11:39 97.9 F 83 20 117/61 100 08/27/21 11:00 97.9 F 89 20 135/106 100 08/27/21 10:41 86 20 100 08/27/21 10:00 97.9 F 86 20 127/65 100 08/27/21 09:00 97.9 F 83 20 117/61 100 08/27/21 08:27 90 20 99 08/27/21 07:35 97 H 08/27/21 07:31 98.1 F 97 H 25 H 124/75 99 08/27/21 07:15 90 20 99 08/27/21 07:00 99.1 F 90 20 134/74 99 08/27/21 06:00 98.2 F 90 20 123/72 99 08/27/21 05:00 99.1 F 99 H 23 129/78 98 08/27/21 04:11 112 H 22 162/93 08/27/21 04:00 99.1 F 107 H 21 162/93 98 08/27/21 03:31 109 H 35 H 99 08/27/21 03:00 99.1 F 105 H 27 H 160/99 99 08/27/21 02:00 99.5 F 99 H 26 H 106/65 98 08/27/21 01:00 99.3 F 91 H 28 H 108/60 99 04/16/22 00:10 93 H 20 105/60 08/27/21 00:01 91 H 08/27/21 00:00 99.3 F 90 20 105/60 99 08/26/21 23:00 99.1 F 85 21 109/64 99 08/26/21 22:54 82 26 H 99 08/26/21 22:00 98.8 F 97 H 20 112/67 98 08/26/21 21:00 98.6 F 112 H 26 H 125/83 98 08/26/21 20:00 98.4 F 109 H 20 119/70 97 08/26/21 19:30 119 H 34 H 123/73 08/26/21 19:00 98.4 F 104 H 28 H 123/73 97 08/26/21 18:42 116 H 20 98 08/26/21 17:47 98.4 F 112 H 20 141/87 95 08/26/21 16:45 99.2 F 94 H 20 111/63 97 08/26/21 16:00 98.2 F 113 H 20 134/86 94 L 08/26/21 15:18 99 H 20 100 08/26/21 14:35 98.2 F 91 H 20 99/63 99 08/26/21 14:00 98.2 F 85 20 98/65 99 08/26/21 13:00 98.4 F 98 H 20 98/64 99 Pain Assessment - Last Documented Pain Intensity 0 Pain Scale Used FLACC Intake and Output: Intake & Output 08/25/21 08/26/21 08/27/21 08/28/21 11:59 11:59 11:59 11:59 Intake Total 3820 3383 4710 Output Total 2345 2980 2475 Balance 3531 563 9555 Weight 129.2 kg 130.2 kg Lab Results: Lab Results-Last 24 Hours 08/26/21 08/26/21 08/27/21 Range/Units 14:28 20:23 02:25 WBC (4.0-10.5) K/mm3 RBC (4.1-5.6) M/mm3 Hgb (12.5-18.0) gm/dl Hct (42-50) % MCV (78-100) fl MCH (26-32) pg MCHC (32-36) g/dl RDW (11.5-14.0) % Plt Count (150-450) K/mm3 MPV (7.5-11.0) fl Segmented Neutrophils (36.-66.) % Band Neutrophils (0.0-2.0) % Lymphocytes (Manual) (24-44) % Monocytes (Manual) (0.0-12.0) % Nucleated RBCs % Hypochromia Platelet Estimate (NORMAL) RBC Morphology Polychromasia Poikilocytosis Anisocytosis Sodium (137-145) mmol/L Potassium (3.5-5.1) mmol/L Chloride (98-107) mmol/L Carbon Dioxide (22-30) mmol/L Anion Gap (5-15) MEQ/L BUN (9-20) mg/dL Creatinine (0.66-1.25) mg/dL Estimated GFR ML/MIN Glucose (74-106) mg/dL POC Glucometer 117 H 115 H 105 (74 to 106) mg/dL Calcium (8.4-10.2) mg/dL Total Bilirubin (0.2-1.3) mg/dL AST (17-59) U/L ALT (0-50) U/L Alkaline Phosphatase (38-126) U/L Serum Total Protein (6.3-8.2) g/dL Albumin (3.5-5.0) g/dL 08/27/21 08/27/21 Range/Units 05:09 05:09 WBC 8.9 (4.0-10.5) K/mm3 RBC 4.01 L (4.1-5.6) M/mm3 Hgb 7.7 L (12.5-18.0) gm/dl Hct 28.2 L (42-50) % MCV 70.3 L (78-100) fl MCH 19.2 L (26-32) pg MCHC 27.3 L (32-36) g/dl RDW 23.1 H (11.5-14.0) % Plt Count 310 (150-450) K/mm3 MPV 9.1 (7.5-11.0) fl Segmented Neutrophils 72 H (36.-66.) % Band Neutrophils 3 H (0.0-2.0) % Lymphocytes (Manual) 24 (24-44) % Monocytes (Manual) 1 (0.0-12.0) % Nucleated RBCs 2 % Hypochromia 1+ Platelet Estimate NORMAL (NORMAL) RBC Morphology ABNORMAL Polychromasia 1+ Poikilocytosis 1+ Anisocytosis 1+ Sodium 142 (137-145) mmol/L Potassium 5.1 (3.5-5.1) mmol/L Chloride 107 (98-107) mmol/L Carbon Dioxide 29 (22-30) mmol/L Anion Gap 11.0 (5-15) MEQ/L BUN 17 (9-20) mg/dL Creatinine 0.44 L (0.66-1.25) mg/dL Estimated GFR > 60.0 ML/MIN Glucose 127 H (74-106) mg/dL POC Glucometer (74 to 106) mg/dL Calcium 8.2 L (8.4-10.2) mg/dL Total Bilirubin 0.50 (0.2-1.3) mg/dL AST 34 (17-59) U/L ALT 8 (0-50) U/L Alkaline Phosphatase 112 (38-126) U/L Serum Total Protein 6.9 (6.3-8.2) g/dL Albumin 3.2 L (3.5-5.0) g/dL Radiology Exams: Radiology Procedures Category Date Time Status CHEST WITHOUT CONTRAST [CT] Urgent Exams 08/25/21 12:46 Completed Portable Chest [CHEST 1 VIEW (PORTABLE)] DAILY Exams 08/26/21 05:06 Completed Portable Chest [CHEST 1 VIEW (PORTABLE)] DAILY Exams 08/27/21 05:00 Completed Portable Chest [CHEST 1 VIEW (PORTABLE)] DAILY Exams 08/28/21 05:00 Ordered Multi-Disciplinary Progress Notes: Multi-Disciplinary Progress Notes 08/26/21 13:54 Respiratory Note by Sania Kohli 1010 ABG RESULTS CALLED TO DR BRYAN ALTMAN WITH CRITICAL VALUES. PER VERBAL ORDER D/C NIMBEX GIVEN TO NURSE. 1130 DICUSSION WITH PT DAUGHTER AND DR GEORGES, FAMILY HAS DECIDED TO TERMINAL WEAN PT. WILL WAIT TILL FAMILY MEMBERS ARE HERE. HAS DAUGHTER COMING FROM [facility]. DR ALTMAN NOTIFIED OF FAMILYS DECISION. Initialized on 08/26/21 13:54 - END OF NOTE 08/26/21 12:54 Nutrition Note by Brenda Alba Note pt to be terminal wean; OG feeding cont at this time; will be d/c'd 08/27. Rafa MSRDCD Initialized on 08/26/21 12:54 - END OF NOTE Assessment/Plan (1) Acute respiratory failure with hypoxia and hypercapnia Current Visit: Yes Status: Acute Assessment & Plan: His family is coming in from out of town today, then he will be extubated in what is expected to be a terminal wean. Will try to keep pt comfortable with fentanyl, and will add ativan drip if needed. Code(s): J96.01 - ACUTE RESPIRATORY FAILURE WITH HYPOXIA; J96.02 - ACUTE RESPIRATORY FAILURE WITH HYPERCAPNIA (2) Bilateral pneumonia Current Visit: Yes Status: Acute Qualifiers: Pneumonia type: due to Pneumococcus Lung location: lower lobe of lung Qualified Code(s): J13 - Pneumonia due to Streptococcus pneumoniae Code(s): J18.9 - PNEUMONIA, UNSPECIFIED ORGANISM (3) COPD (chronic obstructive pulmonary disease) Current Visit: Yes Status: Chronic Qualifiers: COPD type: unspecified COPD Qualified Code(s): J44.9 - Chronic obstructive pulmonary disease, unspecified
[2021-08-27 13:01] VITALS: BP 87/60; PULSE 115; O2SAT 46
--- NOTE | 2021-08-27 13:54 | PCM.DS ---
Discharge Summary Date of Admission: 08/22/21 09:49 Admitting Physician: ULISES GEORGES Consults: Consults on Case 08/22/21 11:39 Consult Pulmonology ROUTINE 08/23/21 09:01 Nutritional Consult ROUTINE Primary Care Provider: ULISES GEORGES Allergies Allergies codeine Allergy (Severe, Verified 08/22/21 07:29) stop breathing hydrocodone Allergy (Severe, Verified 08/22/21 07:29) stop breathing morphine Allergy (Severe, Verified 08/22/21 07:29) stop breathing Penicillins Allergy (Verified 08/22/21 07:29) Hospital Summary - Hospital Course Hospital Course: Pt was admitted through ER with SOB. He was a 65 yo male pt of Dr. Georges with severe COPD. Was found to have bilateral pneumonia, intubated and ventilated in ER; moved to ICU where subsequent attempt to extubate failed. He was on IV levaquin and aztreonam. His condition continued to deteriorate. Pt was a DNR. This was discussed with his family and they agreed to terminal wean today once family reached the bedside from [place]. He was on propofol and IV fentanyl, with intermittent periods of agitation during which he remained completely unresponsive (although his eyes were open). After the ventilator was removed, pt in approx 90 minutes. His was expected. - Vitals & Intake/Output Vital Signs: Vital Signs Temperature 98.6 F 08/27/21 13:00 Pulse Rate 115 H 08/27/21 13:00 Respiratory Rate 31 H 08/27/21 13:00 Blood Pressure 87/60 08/27/21 13:00 O2 Sat by Pulse Oximetry 46 L 08/27/21 13:00 Intake & Output: Intake & Output 08/25/21 08/26/21 08/27/21 08/28/21 11:59 11:59 11:59 11:59 Intake Total 3820 3383 4710 Output Total 2345 2980 2475 Balance 3966 274 4882 Weight 129.2 kg 130.2 kg - Lab Result Diagrams: 08/27/21 05:09 08/27/21 05:09 Lab Results-Last 24 Hrs: Lab Results-Last 24 Hours 08/26/21 08/26/21 08/27/21 Range/Units 14:28 20:23 02:25 WBC (4.0-10.5) K/mm3 RBC (4.1-5.6) M/mm3 Hgb (12.5-18.0) gm/dl Hct (42-50) % MCV (78-100) fl MCH (26-32) pg MCHC (32-36) g/dl RDW (11.5-14.0) % Plt Count (150-450) K/mm3 MPV (7.5-11.0) fl Segmented Neutrophils (36.-66.) % Band Neutrophils (0.0-2.0) % Lymphocytes (Manual) (24-44) % Monocytes (Manual) (0.0-12.0) % Nucleated RBCs % Hypochromia Platelet Estimate (NORMAL) RBC Morphology Polychromasia Poikilocytosis Anisocytosis Sodium (137-145) mmol/L Potassium (3.5-5.1) mmol/L Chloride (98-107) mmol/L Carbon Dioxide (22-30) mmol/L Anion Gap (5-15) MEQ/L BUN (9-20) mg/dL Creatinine (0.66-1.25) mg/dL Estimated GFR ML/MIN Glucose (74-106) mg/dL POC Glucometer 117 H 115 H 105 (74 to 106) mg/dL Calcium (8.4-10.2) mg/dL Total Bilirubin (0.2-1.3) mg/dL AST (17-59) U/L ALT (0-50) U/L Alkaline Phosphatase (38-126) U/L Serum Total Protein (6.3-8.2) g/dL Albumin (3.5-5.0) g/dL 08/27/21 08/27/21 Range/Units 05:09 05:09 WBC 8.9 (4.0-10.5) K/mm3 RBC 4.01 L (4.1-5.6) M/mm3 Hgb 7.7 L (12.5-18.0) gm/dl Hct 28.2 L (42-50) % MCV 70.3 L (78-100) fl MCH 19.2 L (26-32) pg MCHC 27.3 L (32-36) g/dl RDW 23.1 H (11.5-14.0) % Plt Count 310 (150-450) K/mm3 MPV 9.1 (7.5-11.0) fl Segmented Neutrophils 72 H (36.-66.) % Band Neutrophils 3 H (0.0-2.0) % Lymphocytes (Manual) 24 (24-44) % Monocytes (Manual) 1 (0.0-12.0) % Nucleated RBCs 2 % Hypochromia 1+ Platelet Estimate NORMAL (NORMAL) RBC Morphology ABNORMAL Polychromasia 1+ Poikilocytosis 1+ Anisocytosis 1+ Sodium 142 (137-145) mmol/L Potassium 5.1 (3.5-5.1) mmol/L Chloride 107 (98-107) mmol/L Carbon Dioxide 29 (22-30) mmol/L Anion Gap 11.0 (5-15) MEQ/L BUN 17 (9-20) mg/dL Creatinine 0.44 L (0.66-1.25) mg/dL Estimated GFR > 60.0 ML/MIN Glucose 127 H (74-106) mg/dL POC Glucometer (74 to 106) mg/dL Calcium 8.2 L (8.4-10.2) mg/dL Total Bilirubin 0.50 (0.2-1.3) mg/dL AST 34 (17-59) U/L ALT 8 (0-50) U/L Alkaline Phosphatase 112 (38-126) U/L Serum Total Protein 6.9 (6.3-8.2) g/dL Albumin 3.2 L (3.5-5.0) g/dL Micro Results-Entire Visit: Microbiology 08/22/21 07:07 Blood Culture Gram Stain - Final Blood Not Reportable Blood Culture - Final NO GROWTH 08/22/21 07:00 Blood Culture Gram Stain - Final Blood Not Reportable Blood Culture - Final NO GROWTH 08/22/21 06:56 Urine Culture - Final Clean Catch Midstream NO GROWTH Accuchecks Date 08/27/21 Date 08/27/21 Date 08/26/21 Time 02:25 Time 02:25 Time 14:00 - Radiology Exams Ordered Rad Exams-Entire Visit: Radiology Procedures Category Date Time Status Portable Chest [CHEST 1 VIEW (PORTABLE)] DAILY Exams 08/26/21 05:06 Completed Portable Chest [CHEST 1 VIEW (PORTABLE)] DAILY Exams 08/27/21 05:00 Completed Portable Chest [CHEST 1 VIEW (PORTABLE)] DAILY Exams 08/28/21 05:00 Ordered - Procedures and Test Procedures and Tests throughout Hospitalization: Therapy Orders & Screens 08/22/21 07:14 Intubate Patient STAT Comment: 08/22/21 10:30 EKG REPEAT IN AM Comment: Respiratory Therapy Consult ROUTINE Comment: Reason For Exam: 08/22/21 10:32 Oxygen High Flow per RT 50% Comment: VENTILATOR 08/22/21 10:33 Respiratory Therapy Assessment DAILY Comment: Discharge Exam General Appearance: no apparent distress, other (exam done at approx 11:00 a.m.) Neurologic Exam: other (sedated, on ventilator) Respiratory Exam: diminished breath sounds (good air exchange), No crackles/rales, No rhonchi, No wheezing Cardiovascular Exam: regular rate/rhythm, normal heart sounds, No murmur Gastrointestinal/Abdomen Exam: soft, No mass Extremity Exam: swelling (trace pretibial edema bilat) Skin Exam: normal color, warm, dry, No rash Final Diagnosis/Problem List - Final Discharge Diagnosis/Problem (1) Acute respiratory failure with hypoxia and hypercapnia Current Visit: Yes Status: Acute Assessment & Plan: Pt after extubation, as expected. Code(s): J96.01 - ACUTE RESPIRATORY FAILURE WITH HYPOXIA; J96.02 - ACUTE RESPIRATORY FAILURE WITH HYPERCAPNIA (2) Bilateral pneumonia Current Visit: Yes Status: Acute Code(s): J18.9 - PNEUMONIA, UNSPECIFIED ORGANISM (3) COPD (chronic obstructive pulmonary disease) Current Visit: Yes Status: Chronic - Discharge Condition: Serious Prescriptions: No Action Metoprolol Succinate 100 mg [Toprol Xl 100 MG] 100 mg PO DAILY Phenytoin Sod Extended 100 mg* [Dilantin 100 MG] 600 mg PO UD Amlodipine Besylate 10 mg [Norvasc 10 MG] 10 mg PO DAILY Amitriptyline HCl 75 mg PO BID Gabapentin 300 mg PO TID Fenofibrate Nanocrystallized [Fenofibrate] 1 tab PO DAILY Sertraline HCl [Zoloft] 100 mg PO DAILY Aspirin EC 81 mg [Ecotrin 81 mg] 81 mg PO DAILY Albuterol Sulfate [Proair Hfa] 1 inh PO Q46H Pramipexole Di-HCl [Pramipexole Dihydrochloride] 1 mg PO BID Buspirone HCl 5 mg [Buspar 5 mg] 10 mg PO BID Furosemide 40 mg [Lasix 40 MG] 40 mg PO DAILY Mirtazapine 30 mg [Remeron 30 mg] 30 mg PO HS Follow up with: ULISES GEORGES MD [Primary Care Provider] -
== END 2021-08-27 15:00 | disposition expired | DRG 189 ==
LOC: ED 06:35 → ICU 09:49 → INTOOBSV 09:49 → OBSVTOIN 09:49
PROVIDERS: ADMIT General Practice; ATTEND General Practice
DX: J96.01 Acute respiratory failure with hypoxia (principal); J18.9 Pneumonia, unspecified organism; J96.02 Acute respiratory failure with hypercapnia; J44.9 Chronic obstructive pulmonary disease, unspecified; I10 Essential (primary) hypertension; E78.5 Hyperlipidemia, unspecified; I25.10 Atherosclerotic heart disease of native coronary artery without angina pectoris; D64.9 Anemia, unspecified; I25.2 Old myocardial infarction; Z79.899 Other long term (current) drug therapy; Z20.828 Contact with and (suspected) exposure to other viral communicable diseases
CPT/HCPCS: 0241U; 31500; 36000; 36415; 36600; 51702; 71045; 71250; 80053; 80185; 81015; 82375; 82803; 82947; 83036; 83605; 83735; 83880; 84145; 84484; 85025; 85027; 87040; 87086; 93005; 93041; 93306; 94002; 94003; 94640; 94762; 96365; 96367; 96374; 96375; 99285; 99291; J0330; J1650; J1940; J1956; J2060; J2704; J3010; Q2009; A9270-GY